=== PATIENT | female | born 1930 | race Caucasian/White ===

== ENCOUNTER 2017-01-17 12:43 | Inpatient (IN) | payer MEDICARE, OTHER, MEDICAID ==
[2017-01-17] MEDS ORDERED: Sodium Chloride 0.9% 10 ML Syringe FLUSH PRN (13:04)
--- NOTE | 2017-01-17 14:05 | CR ---
Chest: Portable view of the chest was obtained. Comparison: Previous chest x-ray of 08/24/16. Heart size and mediastinum are within normal limits for portable technique. Lungs are clear. Bony structures are grossly intact. Impression: 1. Nothing acute is seen on portable chest x-ray. Diagnostic code #2
--- NOTE | 2017-01-17 15:28 | EDM.PDOC ---
ED HPI GENERAL MEDICAL PROBLEM - General Chief Complaint: Respiratory Problem Stated Complaint: [facility] Time Seen by Provider: 01/17/17 13:01 Source of Information: Reports: Patient History Limitations: Reports: No Limitations - History of Present Illness INITIAL COMMENTS - FREE TEXT/NARRATIVE: The patient presents with a cough and generalized weakness. She got a flu shot on 01/11 and she says after that she developed a cough. She has a productive cough at times. She has some shortness of breath with it at times. She does not have a fever, chills, chest pain, abdominal pain, nausea or vomiting. She lives at [facility] and they say she has been fatigued more and needed more oxygen. She has oxygen at night. She has more edema in her legs. Onset: Gradual Duration: Day(s): Severity: Moderate Improves with: Reports: None Worsens with: Reports: None Associated Symptoms: Reports: Cough, cough w sputum, Shortness of Breath. Denies: Chest Pain, Fever/Chills, Nausea/Vomiting - Related Data Allergies Allergy/AdvReac Type Severity Reaction Status Date / Time No Known Allergies Allergy Verified 01/17/17 15:43 Home Meds: Home Meds Albuterol Sulfate [Proair Respiclick] 1 puff NEB Q4HR PRN 11/27/14 [History] Aspirin [Adult Low Dose Aspirin EC] 81 mg PO BID 11/27/14 [History] Budesonide [Pulmicort] 1 vial INH BID 11/27/14 [History] Furosemide 40 mg PO BID 11/27/14 [History] Levothyroxine Sodium [Synthroid] 75 mcg PO TUTHSA 11/27/14 [History] Levothyroxine Sodium [Synthroid] 100 mcg PO SUMOWEFR 11/27/14 [History] Lisinopril 5 mg PO DAILY 11/27/14 [History] Simvastatin [Zocor] 5 mg PO BEDTIME 01/17/17 [History] Past Medical History HEENT History: Reports: Cataract Cardiovascular History: Reports: Hypertension Respiratory History: Reports: COPD Other Genitourinary History: Kidney cancer. Kidney was removed Oncologic (Cancer) History: Reports: Other (See Below) Other Oncologic History: kidney - Past Surgical History HEENT Surgical History: Reports: Cataract Surgery Social & Family History - Family History Family Medical History: Noncontributory - Tobacco Use Smoking Status *Q: Never Smoker Second Hand Smoke Exposure: Yes - Caffeine Use Caffeine Use: Reports: Coffee - Recreational Drug Use Recreational Drug Use: No ED ROS GENERAL - Review of Systems Review Of Systems: See Below Constitutional: Reports: Weakness, Fatigue. Denies: Fever, Chills HEENT: Reports: No Symptoms Respiratory: Reports: Shortness of Breath, Cough Cardiovascular: Reports: Edema. Denies: Chest Pain Endocrine: Reports: No Symptoms GI/Abdominal: Reports: No Symptoms : Reports: No Symptoms Musculoskeletal: Reports: No Symptoms ED EXAM, GENERAL - Physical Exam Exam: See Below Exam Limited By: No Limitations General Appearance: Alert, No Apparent Distress Ears: Normal External Exam Nose: Normal Inspection Head: Atraumatic, Normocephalic Neck: Normal Inspection Respiratory/Chest: No Respiratory Distress, Lungs Clear, Rhonchi (Left mid lung) Cardiovascular: Regular Rate, Rhythm, No Edema, No Murmur GI/Abdominal: Soft, Non-Tender, No Organomegaly, No Mass Back Exam: Normal Inspection Extremities: Pedal Edema Neurological: Alert, Oriented, No Motor/Sensory Deficits EKG INTERPRETATION EKG Date: 01/17/17 Time: 13:13 Rhythm: NSR Rate (Beats/Min): 81 [place]: Normal P-Wave: Present QRS: Normal ST-T: Normal Course - Vital Signs Last Recorded V/S: Last Vital Signs Temp 97.9 F 01/17/17 13:02 Pulse 82 01/17/17 15:30 Resp 24 H 01/17/17 15:30 BP 146/62 H 01/17/17 15:30 Pulse Ox 95 01/17/17 15:30 - Orders/Labs/Meds Orders: Active Orders 24 hr Category Date Time Status Cardiac Monitoring [RC] . DIRECTED Care 01/17/17 13:04 Active EKG Documentation Completion [RC] STAT Care 01/17/17 13:05 Active Oxygen Therapy [RC] PRN Care 01/17/17 13:04 Active Peripheral IV Care [RC] . DIRECTED Care 01/17/17 13:04 Active RT Aerosol Therapy [RC] ASDIRECTED Care 01/17/17 15:52 Active CULTURE BLOOD [BC] Stat Lab 01/17/17 13:25 Received CULTURE BLOOD [BC] Stat Lab 01/17/17 13:40 Received INFLUENZA A+B AG SCREEN [RM] Stat Lab 01/17/17 16:13 Uncollected Levofloxacin/Dextrose 5%-Water [Levaquin in D5W 750 MG/ Med 01/17/17 15:48 Active 150 ML] 750 mg Premix Bag 1 bag IV ONETIME Sodium Chloride 0.9% [Saline Flush] Med 01/17/17 13:04 Active 10 ml FLUSH ASDIRECTED PRN Blood Culture x2 Reflex Set [OM.PC] Stat Oth 01/17/17 13:05 Ordered Peripheral IV Insertion Adult [OM.PC] Stat Oth 01/17/17 13:04 Ordered Medication Orders Levofloxacin/Dextrose 750 mg/ (Premix) 150 mls @ 100 mls/hr IV ONETIME ONE Stop: 01/17/17 17:17 Last Admin: 01/17/17 15:58 Dose: 100 mls/hr Sodium Chloride (Saline Flush) 10 ml FLUSH ASDIRECTED PRN PRN Reason: Keep Vein Open Last Admin: 01/17/17 14:55 Dose: 10 ml Labs: Laboratory Tests 01/17/17 01/17/17 01/17/17 Range/Units 13:25 13:25 13:31 WBC 7.65 (3.98-10.04) K/mm3 RBC 3.61 L (3.98-5.22) M/mm3 Hgb 11.7 (11.2-15.7) gm/L Hct 35.9 (34.1-44.9) % MCV 99.4 H (79.4-94.8) fl MCH 32.4 H (25.6-32.2) pg MCHC 32.6 (32.2-35.5) g/dl RDW Std Deviation 44.0 (36.4-46.3) fL Plt Count 222 (182-369) K/mm3 MPV 10.8 (9.4-12.3) fl Neut % (Auto) 61.7 (34.0-71.1) % Lymph % (Auto) 18.0 L (19.3-51.7) % Gila % (Auto) 16.2 H (4.7-12.5) % Eos % (Auto) 3.5 (0.7-5.8) Baso % (Auto) 0.5 (0.1-1.2) % Neut # (Auto) 4.71 (1.56-6.13) K/mm3 Lymph # (Auto) 1.38 (1.18-3.74) K/mm3 Gila # (Auto) 1.24 H (0.24-0.36) K/mm3 Eos # (Auto) 0.27 (0.04-0.36) K/mm3 Baso # (Auto) 0.04 (0.01-0.08) K/mm3 Manual Slide Review Abnormal smear Sodium 140 (136-145) mEq/L Potassium 4.4 (3.5-5.1) mEq/L Chloride 102 (98-107) mEq/L Carbon Dioxide 30 (21-32) mEq/L Anion Gap 12.4 (5-15) BUN 29 H (7-18) mg/dL Creatinine 1.5 H (0.55-1.02) mg/dL Est Cr Clr Drug Dosing 24.11 mL/min Estimated GFR (MDRD) 33 (>60) mL/min BUN/Creatinine Ratio 19.3 H (14-18) Glucose 86 (83-115) mg/dL Calcium 8.9 (8.5-10.1) mg/dL Total Bilirubin 0.6 (0.2-1.0) mg/dL AST 23 (15-37) U/L ALT 19 (14-59) U/L Alkaline Phosphatase 86 (46-116) U/L Troponin I < 0.017 (0.00-0.056) ng/mL NT-Pro-B Natriuret Pep 430 (0-450) pg/mL Total Protein 7.3 (6.4-8.2) g/dl Albumin 2.8 L (3.4-5.0) g/dl Globulin 4.5 gm/dL Albumin/Globulin Ratio 0.6 L (1-2) Urine Color (Yellow) Urine Appearance (Clear) Urine pH (5.0-8.0) Ur Specific Dameron (1.005-1.030) Urine Protein (Negative) Urine Glucose (UA) (Negative) Urine Ketones (Negative) Urine Occult Blood (Negative) Urine Nitrite (Negative) Urine Bilirubin (Negative) Urine Urobilinogen (0.2-1.0) Ur Leukocyte Esterase (Negative) Urine RBC (0-5) /hpf Urine WBC (0-5) /hpf Ur Epithelial Cells (0-5) /hpf Urine Bacteria (FEW) /hpf Urine Mucus (FEW) /hpf 01/17/17 Range/Units 14:00 WBC (3.98-10.04) K/mm3 RBC (3.98-5.22) M/mm3 Hgb (11.2-15.7) gm/L Hct (34.1-44.9) % MCV (79.4-94.8) fl MCH (25.6-32.2) pg MCHC (32.2-35.5) g/dl RDW Std Deviation (36.4-46.3) fL Plt Count (182-369) K/mm3 MPV (9.4-12.3) fl Neut % (Auto) (34.0-71.1) % Lymph % (Auto) (19.3-51.7) % Gila % (Auto) (4.7-12.5) % Eos % (Auto) (0.7-5.8) Baso % (Auto) (0.1-1.2) % Neut # (Auto) (1.56-6.13) K/mm3 Lymph # (Auto) (1.18-3.74) K/mm3 Gila # (Auto) (0.24-0.36) K/mm3 Eos # (Auto) (0.04-0.36) K/mm3 Baso # (Auto) (0.01-0.08) K/mm3 Manual Slide Review Sodium (136-145) mEq/L Potassium (3.5-5.1) mEq/L Chloride (98-107) mEq/L Carbon Dioxide (21-32) mEq/L Anion Gap (5-15) BUN (7-18) mg/dL Creatinine (0.55-1.02) mg/dL Est Cr Clr Drug Dosing mL/min Estimated GFR (MDRD) (>60) mL/min BUN/Creatinine Ratio (14-18) Glucose (83-115) mg/dL Calcium (8.5-10.1) mg/dL Total Bilirubin (0.2-1.0) mg/dL AST (15-37) U/L ALT (14-59) U/L Alkaline Phosphatase (46-116) U/L Troponin I (0.00-0.056) ng/mL NT-Pro-B Natriuret Pep (0-450) pg/mL Total Protein (6.4-8.2) g/dl Albumin (3.4-5.0) g/dl Globulin gm/dL Albumin/Globulin Ratio (1-2) Urine Color Light yellow (Yellow) Urine Appearance Clear (Clear) Urine pH 7.0 (5.0-8.0) Ur Specific Dameron 1.015 (1.005-1.030) Urine Protein Negative (Negative) Urine Glucose (UA) Negative (Negative) Urine Ketones Negative (Negative) Urine Occult Blood Negative (Negative) Urine Nitrite Negative (Negative) Urine Bilirubin Negative (Negative) Urine Urobilinogen 0.2 (0.2-1.0) Ur Leukocyte Esterase Negative (Negative) Urine RBC Not seen (0-5) /hpf Urine WBC 0-5 (0-5) /hpf Ur Epithelial Cells 0-5 (0-5) /hpf Urine Bacteria Not seen (FEW) /hpf Urine Mucus Not seen (FEW) /hpf Meds: Medications Generic Name Dose Route Start Last Admin Trade Name Aurelio PRN Reason Stop Dose Admin Levofloxacin/Dextrose 750 mg/ 150 mls @ 100 mls/hr 01/17/17 15:48 01/17/17 15 :58 Premix IV 01/17/17 17:17 100 mls/hr ONETIME ONE Administration Sodium Chloride 10 ml 01/17/17 13:04 01/17/17 14:55 Saline Flush FLUSH 10 ml ASDIRECTED PRN Administration Keep Vein Open Discontinued Medications Generic Name Dose Route Start Last Admin Trade Name Aurelio PRN Reason Stop Dose Admin Albuterol/Ipratropium 3 ml 01/17/17 15:52 01/17/17 16:11 Duoneb 3.0-0.5 Mg/3 Ml NEB 01/17/17 15:53 3 ml ONETIME ONE Administration Methylprednisolone Sodium Succinate 125 mg 01/17/17 15:52 01/17/17 15:57 Solu-Medrol IVPUSH 01/17/17 15:53 125 mg ONETIME ONE Administration - Re-Assessments/Exams Free Text/Narrative Re-Assessment/Exam: 01/17/17 15:33 I ordered an IV saline lock, EKG, CXR, labs, UA and blood cultures. Her EKG shows a NSR with no acute changes. Her CXR shows nothing acute. Her CBC looks good with a normal WBC. Her CMP shows a slightly elevated creatinine of 1.5. Her UA shows no UTI. Her troponin is negative. Her BNP was negative. 01/17/17 16:14 I ordered a duoneb and levaquin 750mg IV. My nurse took her oxygen off and she went to 88%. She is requiring oxygen during the day now. She would only need the oxygen at night. I feel she needs to be admitted. I called Dr Pedraza and she agreed to the admission. Departure - Departure Time of Disposition: 16:20 Disposition: Admitted As Inpatient 68 Clinical Impression: Hypoxia, COPD exacerbation, Cough, Bronchitis - Discharge Information Referrals: Gabby Cornell PA [Primary Care Provider] - Forms: ED Department Discharge - My Orders Last 24 Hours: My Active Orders 01/17/17 13:04 Cardiac Monitoring [RC] . DIRECTED Oxygen Therapy [RC] PRN Peripheral IV Care [RC] . DIRECTED Sodium Chloride 0.9% [Saline Flush] 10 ml FLUSH ASDIRECTED PRN Peripheral IV Insertion Adult [OM.PC] Stat 01/17/17 13:05 EKG Documentation Completion [RC] STAT Blood Culture x2 Reflex Set [OM.PC] Stat 01/17/17 13:25 CULTURE BLOOD [BC] Stat 01/17/17 13:40 CULTURE BLOOD [BC] Stat 01/17/17 15:48 Levofloxacin/Dextrose 5%-Water [Levaquin in D5W 750 MG/150 ML] 750 mg Premix Bag 1 bag IV ONETIME 01/17/17 15:52 RT Aerosol Therapy [RC] ASDIRECTED 01/17/17 16:13 INFLUENZA A+B AG SCREEN [RM] Stat - Assessment/Plan Last 24 Hours: My Active Orders 01/17/17 13:04 Cardiac Monitoring [RC] . DIRECTED Oxygen Therapy [RC] PRN Peripheral IV Care [RC] . DIRECTED Sodium Chloride 0.9% [Saline Flush] 10 ml FLUSH ASDIRECTED PRN Peripheral IV Insertion Adult [OM.PC] Stat 01/17/17 13:05 EKG Documentation Completion [RC] STAT Blood Culture x2 Reflex Set [OM.PC] Stat 01/17/17 13:25 CULTURE BLOOD [BC] Stat 01/17/17 13:40 CULTURE BLOOD [BC] Stat 01/17/17 15:48 Levofloxacin/Dextrose 5%-Water [Levaquin in D5W 750 MG/150 ML] 750 mg Premix Bag 1 bag IV ONETIME 01/17/17 15:52 RT Aerosol Therapy [RC] ASDIRECTED 01/17/17 16:13 INFLUENZA A+B AG SCREEN [RM] Stat
[2017-01-17] MEDS ORDERED: Levofloxacin/Dextrose 5%-Water 750 MG in Premix Bag 1 BAG IV ONE (15:48)
[2017-01-17] MEDS ORDERED: Albuterol/Ipratropium 3.0-0.5 MG/3 ML Neb Soln NEB ONE (15:52)
[2017-01-17] MEDS ORDERED: methylPREDNISolone Sodium Succinate 125 MG/2 ML SDV IVPUSH ONE (15:52)
[2017-01-17] MEDS ORDERED: Albuterol/Ipratropium 3.0-0.5 MG/3 ML Neb Soln NEB PRN (19:54)
--- NOTE | 2017-01-17 20:15 | PCM.HP ---
H&P History of Present Illness - General Date of Service: 01/17/17 Admit Problem/Dx: Admission Diagnosis/Problem Admission Diagnosis/Problem Hypoxia Source of Information: Patient, Provider History Limitations: Reports: No Limitations - History of Present Illness Initial Comments - Free Text/Narative: 86 year old female with a productive cough, unknown component of SOB, presents from [place]. There has been no recent evaluation by a healthcare provider. The patient is a poor historian, based on the information that the ED provider obtained, she had been SOB. It is unclear whether it was with activity or at rest. She has been afebrile. There is one plus edema LE bilaterally, suspect that it is chronic. Functional capacity is unknown, however the patient appears to be profoundly sedentary. A respiratory panel has been ordered. She has received Levoquin 750 mg once, this will be ordered every 48 hours based on renal function. Onset of Symptoms: Reports: Gradual Duration of Symptoms: Reports: Day(s):, Getting Worse Location: Reports: Chest Severity: Moderate Improves with: Reports: Medication Worsens with: Reports: None Associated Symptoms: Reports: cough w sputum, Shortness of Breath, Weakness - Related Data Allergies/Adverse Reactions: Allergies Allergy/AdvReac Type Severity Reaction Status Date / Time No Known Allergies Allergy Verified 01/17/17 15:43 Home Medications: Home Meds Albuterol Sulfate [Proair Respiclick] 1 puff NEB Q4HR PRN 11/27/14 [History] Aspirin [Adult Low Dose Aspirin EC] 81 mg PO BID 11/27/14 [History] Budesonide [Pulmicort] 1 vial INH BID 11/27/14 [History] Furosemide 40 mg PO BID 11/27/14 [History] Levothyroxine Sodium [Synthroid] 75 mcg PO TUTHSA 11/27/14 [History] Levothyroxine Sodium [Synthroid] 100 mcg PO SUMOWEFR 11/27/14 [History] Lisinopril 5 mg PO DAILY 11/27/14 [History] Simvastatin [Zocor] 5 mg PO BEDTIME 01/17/17 [History] Nystatin [Nystop] 15 gm TOP BID PRN 01/18/17 [History] Past Medical History HEENT History: Reports: Cataract Cardiovascular History: Reports: High Cholesterol, Hypertension Respiratory History: Reports: COPD Other Genitourinary History: Kidney cancer. Kidney was removed Oncologic (Cancer) History: Reports: Other (See Below) Other Oncologic History: kidney - Past Surgical History HEENT Surgical History: Reports: Cataract Surgery Social & Family History - Family History Family Medical History: Noncontributory - Tobacco Use Smoking Status *Q: Never Smoker Second Hand Smoke Exposure: Yes - Caffeine Use Caffeine Use: Reports: Coffee Caffeine Use Comment: Patient states she drinks 3 cups decaf coffee per day - Recreational Drug Use Recreational Drug Use: No H&P Review of Systems - Review of Systems: Review Of Systems: See Below General: Reports: Weakness, Fatigue HEENT: Reports: No Symptoms Pulmonary: Reports: Shortness of Breath, Cough Cardiovascular: Reports: No Symptoms Gastrointestinal: Reports: No Symptoms Genitourinary: Reports: No Symptoms Musculoskeletal: Reports: No Symptoms Skin: Reports: No Symptoms Psychiatric: Reports: No Symptoms Neurological: Reports: No Symptoms Hematologic/Lymphatic: Reports: No Symptoms Immunologic: Reports: No Symptoms Exam - Exam Exam: See Below - Vital Signs Vital Signs: Last Vital Signs Temp 36.6 C 01/17/17 13:02 Pulse 82 01/17/17 15:30 Resp 24 H 01/17/17 15:30 BP 146/62 H 01/17/17 15:30 Pulse Ox 95 01/17/17 16:11 Weight: 113.217 kg - Exam Quality Assessment: Supplemental Oxygen General: Alert, Oriented, Cooperative HEENT: EOMI, Nares Patent, Normal Nasal Septum, Pupils Equal, Pupils Reactive, PERRLA Neck: Supple, Trachea Midline Lungs: Normal Respiratory Effort, Decreased Breath Sounds Cardiovascular: Regular Rate GI/Abdominal Exam: Normal Bowel Sounds, Soft, Non-Tender, No Organomegaly, No Distention (Female) Exam: Deferred Rectal (Female) Exam: Decreased Rectal Tone Extremities: Normal Inspection, Pedal Edema Skin: Warm Neurological: Cranial Nerves Intact Neuro Extensive - Mental Status: Alert, Oriented x3 Neuro Extensive - Motor, Sensory, Reflexes: CN II-XII Intact - Patient Data Result Diagrams: 01/18/17 06:27 01/18/17 06:27 Luc Results Last 24 hrs: Microbiology 01/17/17 17:25 Influenza Type A Antigen Screen - Final Nasopharyngeal Swab - Nare, Unspecified NEGATIVE INFLUENZA A VIRUS AG Influenza Type B Antigen Screen - Final NEGATIVE INFLUENZA B VIRUS AG *Q Meaningful Use (ADM) - VTE *Q VTE Criteria *Q: - Stroke *Q Stroke Criteria *Q: - AMI *Q AMI Criteria *Q: - Problem List (1) CHF (congestive heart failure) SNOMED Code(s): 44208578 ICD Code: I50.9 - HEART FAILURE, UNSPECIFIED Status: Acute Current Visit : Yes Problem List Initiated/Reviewed/Updated: Yes Orders Last 24hrs: Active Orders 24 hr Category Date Time Status Patient Status [ADT] Routine ADT 01/17/17 17:31 Active RT Aerosol Therapy [RC] ASDIRECTED Care 01/17/17 19:56 Ordered CXR [Chest 2V] [CR] Routine Exams 01/19/17 08:00 Ordered BMP [BASIC METABOLIC PANEL,BMP] [CHEM] DAILY Lab 01/18/17 05:00 Ordered BMP [BASIC METABOLIC PANEL,BMP] [CHEM] DAILY Lab 01/19/17 05:00 Ordered BMP [BASIC METABOLIC PANEL,BMP] [CHEM] DAILY Lab 01/20/17 05:00 Ordered BMP [BASIC METABOLIC PANEL,BMP] [CHEM] DAILY Lab 01/21/17 05:00 Ordered CBC WITH AUTO DIFF [HEME] DAILY Lab 01/18/17 05:00 Ordered CBC WITH AUTO DIFF [HEME] DAILY Lab 01/19/17 05:00 Ordered CBC WITH AUTO DIFF [HEME] DAILY Lab 01/20/17 05:00 Ordered CBC WITH AUTO DIFF [HEME] DAILY Lab 01/21/17 05:00 Ordered CRP [C-REACTIVE PROTEIN] [CHEM] DAILY Lab 01/18/17 05:00 Ordered CRP [C-REACTIVE PROTEIN] [CHEM] DAILY Lab 01/19/17 05:00 Ordered CRP [C-REACTIVE PROTEIN] [CHEM] DAILY Lab 01/20/17 05:00 Ordered CRP [C-REACTIVE PROTEIN] [CHEM] DAILY Lab 01/21/17 05:00 Ordered MAGNESIUM [CHEM] DAILY Lab 01/18/17 05:11 Ordered MAGNESIUM [CHEM] DAILY Lab 01/19/17 05:11 Ordered MAGNESIUM [CHEM] DAILY Lab 01/20/17 05:11 Ordered MAGNESIUM [CHEM] DAILY Lab 01/21/17 05:11 Ordered MYCOPLASMA PNEUMONIAE IGM AB [CHEM] Routine Lab 01/18/17 05:00 Ordered PRO B-TYPE NATRIUR PEPT,BNPPRO [CHEM] Routine Lab 01/18/17 05:00 Ordered RESPIRATORY PANEL BY PCR [MREF] Routine Lab 01/17/17 19:58 Uncollected STREP PNEUMONIAE ANTIGEN [MREF] Routine Lab 01/17/17 19:46 Uncollected TROPONIN I [CHEM] Routine Lab 01/18/17 05:00 Ordered TSH [CHEM] Routine Lab 01/18/17 05:00 Ordered Albuterol [Proventil Neb Soln] Med 01/17/17 19:56 Ordered 2.5 mg NEB Q4HRRT PRN Albuterol/Ipratropium [DuoNeb 3.0-0.5 MG/3 ML] Med 01/17/17 19:54 Ordered 3 ml NEB QID PRN Aspirin [Halfprin] Med 01/17/17 21:00 Ordered 81 mg PO BID Budesonide [Pulmicort] Med 01/17/17 21:00 Ordered 1 vial INH BID Levothyroxine Med 01/18/17 19:40 Ordered 75 mcg PO TUTHSA Levothyroxine [Synthroid] Med 01/17/17 19:45 Ordered 100 mcg PO SUMOWEFR Simvastatin [Zocor] Med 01/17/17 21:00 Ordered 5 mg PO BEDTIME methylPREDNISolone Sod Succ [Solu-MEDROL] Med 01/17/17 20:00 Ordered 80 mg IVPUSH Q8H Resuscitation Status Routine Resus Stat 01/17/17 18:08 Ordered Medication Orders Albuterol (Proventil Neb Soln) 2.5 mg NEB Q4HRRT PRN PRN Reason: Shortness of Breath Albuterol/Ipratropium (Duoneb 3.0-0.5 Mg/3 Ml) 3 ml NEB QID PRN PRN Reason: Shortness of Breath Aspirin (Halfprin) 81 mg PO BID RIAZ Budesonide (Pulmicort) 0.5 mg INH BIDRT RIAZ Levothyroxine Sodium (Synthroid) 100 mcg PO SuMoWeFr@0600 RIAZ Levothyroxine Sodium (Levothyroxine) 75 mcg PO TuThSa@0600 RIAZ Methylprednisolone Sodium Succinate (Solu-Medrol) 80 mg IVPUSH Q8H RIAZ Simvastatin (Zocor) 5 mg PO BEDTIME RIAZ Sodium Chloride (Saline Flush) 10 ml FLUSH ASDIRECTED PRN PRN Reason: Keep Vein Open Last Admin: 01/17/17 14:55 Dose: 10 ml Assessment/Plan Comment:: Impression: Query respiratory infection, COPD history-->needs clarification Empiric treatment started with Levoquin 750 mg Q 48 hours, renal dose. Doubt heart failure Needs polysomnography evaluation as an outpatient HTN HLD Morbid obesity Plan: Resp panel/mycoplasma/Strep pneumo Empiric Rx with Levoquin 750 mg Q 48 hours Home meds/daily labs SW/PT/OT consults DVT/GI propjylaxis
[2017-01-17] MEDS: Simvastatin 10 MG Tab PO SCH (21:07)
[2017-01-17] MEDS: Aspirin 81 MG Tab.EC PO SCH (21:07)
[2017-01-17] MEDS: Budesonide 0.5 MG/2 ML Neb Susp INH SCH (21:35)
[2017-01-17] MEDS: Albuterol 0.083% 2.5 MG/3 ML Neb Soln NEB PRN (22:15)
[2017-01-17] MEDS ORDERED: Pneumococcal Polyvalent-23 Vaccine 0.5 ML SDV IM ONE (23:44)
[2017-01-18] MEDS: methylPREDNISolone Sodium Succinate 40 MG/1 ML SDV IVPUSH SCH ×3 (00:27→15:25)
[2017-01-18] MEDS ORDERED: Nystatin Topical Powder 15 GM Bottle TOP PRN (02:35)
[2017-01-18] MEDS: Budesonide 0.5 MG/2 ML Neb Susp INH SCH ×2 (05:40→21:08)
[2017-01-18] MEDS: Levothyroxine 75 MCG Tab PO SCH (06:10)
[2017-01-18] MEDS: Aspirin 81 MG Tab.EC PO SCH ×2 (10:33→20:53)
[2017-01-18] MEDS ORDERED: hydrALAZINE 20 MG/ML SDV IVPUSH PRN (12:20)
[2017-01-18] MEDS ORDERED: Sodium Chloride 0.45% 1,000 ML IV SCH (12:30)
--- NOTE | 2017-01-18 16:43 | PCM.PN ---
- General Info Date of Service: 01/18/17 Functional Status: Reports: Tolerating Diet - Review of Systems General: Reports: Weakness HEENT: Reports: No Symptoms Pulmonary: Reports: Shortness of Breath Cardiovascular: Reports: No Symptoms Gastrointestinal: Reports: No Symptoms Genitourinary: Reports: No Symptoms Musculoskeletal: Reports: No Symptoms Skin: Reports: No Symptoms Neurological: Reports: No Symptoms Psychiatric: Reports: No Symptoms - Patient Data Vitals - Most Recent: Last Vital Signs Temp 36.6 C 01/18/17 12:22 Pulse 96 01/18/17 12:22 Resp 19 01/18/17 12:22 BP 131/45 L 01/18/17 12:22 Pulse Ox 91 L 01/18/17 12:22 Weight - Most Recent: 113.217 kg I&O - Last 24 Hours: Intake & Output 01/18/17 01/18/17 01/18/17 06:59 14:59 22:59 Intake Total 200 Output Total 100 Balance 100 Lab Results Last 24 Hours: Laboratory Results - last 24 hr 01/18/17 01/18/17 01/18/17 Range/Units 00:20 06:27 06:27 WBC 7.94 (3.98-10.04) K/mm3 RBC 3.82 L (3.98-5.22) M/mm3 Hgb 12.2 (11.2-15.7) gm/L Hct 37.5 (34.1-44.9) % MCV 98.2 H (79.4-94.8) fl MCH 31.9 (25.6-32.2) pg MCHC 32.5 (32.2-35.5) g/dl RDW Std Deviation 43.5 (36.4-46.3) fL Plt Count 271 (182-369) K/mm3 MPV 11.5 (9.4-12.3) fl Neut % (Auto) 90.0 H (34.0-71.1) % Lymph % (Auto) 7.8 L (19.3-51.7) % [place] % (Auto) 1.9 L (4.7-12.5) % Eos % (Auto) 0 L (0.7-5.8) Baso % (Auto) 0.0 L (0.1-1.2) % Neut # (Auto) 7.15 H (1.56-6.13) K/mm3 Lymph # (Auto) 0.62 L (1.18-3.74) K/mm3 [place] # (Auto) 0.15 L (0.24-0.36) K/mm3 Eos # (Auto) 0.00 L (0.04-0.36) K/mm3 Baso # (Auto) 0.00 L (0.01-0.08) K/mm3 Manual Slide Review Abnormal smear Sodium 139 (136-145) mEq/L Potassium 4.3 (3.5-5.1) mEq/L Chloride 101 (98-107) mEq/L Carbon Dioxide 26 (21-32) mEq/L Anion Gap 16.3 H (5-15) BUN 32 H (7-18) mg/dL Creatinine 1.6 H (0.55-1.02) mg/dL Est Cr Clr Drug Dosing 22.60 mL/min Estimated GFR (MDRD) 31 (>60) mL/min BUN/Creatinine Ratio 20.0 H (14-18) Glucose 177 H (83-115) mg/dL Calcium 9.3 (8.5-10.1) mg/dL Magnesium (1.8-2.4) mg/dl Troponin I < 0.017 (0.00-0.056) ng/mL C-Reactive Protein 5.2 H* (<1.0) mg/dL NT-Pro-B Natriuret Pep 541 H (0-450) pg/mL TSH 3rd Generation 1.600 (0.358-3.74) uIU/mL Mycoplasma pneumon IgM Negative (NEGATIVE) MRSA (PCR) Negative 01/18/17 Range/Units 06:27 WBC (3.98-10.04) K/mm3 RBC (3.98-5.22) M/mm3 Hgb (11.2-15.7) gm/L Hct (34.1-44.9) % MCV (79.4-94.8) fl MCH (25.6-32.2) pg MCHC (32.2-35.5) g/dl RDW Std Deviation (36.4-46.3) fL Plt Count (182-369) K/mm3 MPV (9.4-12.3) fl Neut % (Auto) (34.0-71.1) % Lymph % (Auto) (19.3-51.7) % [place] % (Auto) (4.7-12.5) % Eos % (Auto) (0.7-5.8) Baso % (Auto) (0.1-1.2) % Neut # (Auto) (1.56-6.13) K/mm3 Lymph # (Auto) (1.18-3.74) K/mm3 [place] # (Auto) (0.24-0.36) K/mm3 Eos # (Auto) (0.04-0.36) K/mm3 Baso # (Auto) (0.01-0.08) K/mm3 Manual Slide Review Sodium (136-145) mEq/L Potassium (3.5-5.1) mEq/L Chloride (98-107) mEq/L Carbon Dioxide (21-32) mEq/L Anion Gap (5-15) BUN (7-18) mg/dL Creatinine (0.55-1.02) mg/dL Est Cr Clr Drug Dosing mL/min Estimated GFR (MDRD) (>60) mL/min BUN/Creatinine Ratio (14-18) Glucose (83-115) mg/dL Calcium (8.5-10.1) mg/dL Magnesium 2.3 (1.8-2.4) mg/dl Troponin I (0.00-0.056) ng/mL C-Reactive Protein (<1.0) mg/dL NT-Pro-B Natriuret Pep (0-450) pg/mL TSH 3rd Generation (0.358-3.74) uIU/mL Mycoplasma pneumon IgM (NEGATIVE) MRSA (PCR) Luc Results Last 24 Hours: Microbiology 01/17/17 17:25 Influenza Type A Antigen Screen - Final Nasopharyngeal Swab - Nare, Unspecified NEGATIVE INFLUENZA A VIRUS AG Influenza Type B Antigen Screen - Final NEGATIVE INFLUENZA B VIRUS AG Med Orders - Current: Current Medications Albuterol (Proventil Neb Soln) 2.5 mg NEB Q4HRRT PRN PRN Reason: Shortness of Breath Last Admin: 01/17/17 22:15 Dose: 2.5 mg Albuterol/Ipratropium (Duoneb 3.0-0.5 Mg/3 Ml) 3 ml NEB QID PRN PRN Reason: Shortness of Breath Aspirin (Halfprin) 81 mg PO BID [facility] Last Admin: 01/18/17 10:33 Dose: 81 mg Budesonide (Pulmicort) 0.5 mg INH BIDRT [facility] Last Admin: 01/18/17 05:40 Dose: 0.5 mg Hydralazine HCl (Apresoline) 10 mg IVPUSH Q6H PRN PRN Reason: Hypertension Sodium Chloride (Sodium Chloride 0.45%) 1,000 mls @ 75 mls/hr IV ASDIRECTED [facility] Last Admin: 01/18/17 15:28 Dose: 75 mls/hr Levothyroxine Sodium (Synthroid) 100 mcg PO SuMoWeFr@0600 [facility] Levothyroxine Sodium (Levothyroxine) 75 mcg PO TuThSa@0600 [facility] Last Admin: 01/18/17 06:10 Dose: 75 mcg Methylprednisolone Sodium Succinate (Solu-Medrol) 80 mg IVPUSH Q8H [facility] Last Admin: 01/18/17 15:25 Dose: 80 mg Nystatin (Nystop) 1 gm TOP BID PRN PRN Reason: Other Simvastatin (Zocor) 5 mg PO BEDTIME [facility] Last Admin: 01/17/17 21:07 Dose: 5 mg Sodium Chloride (Saline Flush) 10 ml FLUSH ASDIRECTED PRN PRN Reason: Keep Vein Open Last Admin: 01/17/17 14:55 Dose: 10 ml Discontinued Medications Albuterol/Ipratropium (Duoneb 3.0-0.5 Mg/3 Ml) 3 ml NEB ONETIME ONE Stop: 01/17/17 15:53 Last Admin: 01/17/17 16:11 Dose: 3 ml Levofloxacin/Dextrose 750 mg/ (Premix) 150 mls @ 100 mls/hr IV ONETIME ONE Stop: 01/17/17 17:17 Last Admin: 01/17/17 15:58 Dose: 100 mls/hr Methylprednisolone Sodium Succinate (Solu-Medrol) 125 mg IVPUSH ONETIME ONE Stop: 01/17/17 15:53 Last Admin: 01/17/17 15:57 Dose: 125 mg - Exam Quality Assessment: Supplemental Oxygen, DVT Prophylaxis General: Alert, Oriented, Cooperative, No Acute Distress HEENT: Pupils Equal, Pupils Reactive, EOMI Neck: Supple, Trachea Midline Lungs: Normal Respiratory Effort Cardiovascular: Regular Rate GI/Abdominal Exam: Normal Bowel Sounds, Soft, Non-Tender, No Organomegaly, No Distention (Female) Exam: Deferred Back Exam: Normal Inspection Extremities: Normal Inspection Skin: Warm Neurological: No New Focal Deficit Psy/Mental Status: Alert, Normal Affect, Normal Mood - Problem List & Annotations (1) CHF (congestive heart failure) SNOMED Code(s): 66214953 Code(s): I50.9 - HEART FAILURE, UNSPECIFIED Status: Acute Current Visit: Yes - Problem List Review Problem List Initiated/Reviewed/Updated: Yes - My Orders Last 24 Hours: My Active Orders 01/17/17 18:08 Resuscitation Status Routine 01/17/17 19:46 STREP PNEUMONIAE ANTIGEN [MREF] Routine 01/17/17 19:54 Albuterol/Ipratropium [DuoNeb 3.0-0.5 MG/3 ML] 3 ml NEB QID PRN 01/17/17 19:56 RT Aerosol Therapy [RC] ASDIRECTED Albuterol [Proventil Neb Soln] 2.5 mg NEB Q4HRRT PRN 01/17/17 21:00 Aspirin [Halfprin] 81 mg PO BID Budesonide [Pulmicort] 0.5 mg INH BIDRT Simvastatin [Zocor] 5 mg PO BEDTIME 01/17/17 23:10 RESPIRATORY PANEL BY PCR [MREF] Routine 01/18/17 00:00 methylPREDNISolone Sod Succ [Solu-MEDROL] 80 mg IVPUSH Q8H 01/18/17 02:35 Nystatin [Nystop] 1 gm TOP BID PRN 01/18/17 06:00 Levothyroxine 75 mcg PO TuThSa@0600 01/18/17 10:47 RT PFT Bedside Parameters [RC] Click to Edit 01/18/17 10:49 Consult to Occupational Therapy [OT Evaluation and Treatment] [CONS] Routine Consult to Physical Therapy [PT Evaluation and Treatment] [CONS] Routine 01/18/17 12:20 hydrALAZINE [Apresoline] 10 mg IVPUSH Q6H PRN 01/18/17 12:30 Sodium Chloride 0.45% 1,000 ml IV ASDIRECTED 01/18/17 13:24 Consult to Habitat Management Coordinator [CONS] Routine 01/18/17 13:25 Bedside Screening Spirometry [RT Spirometry Screening] [RESPCARE] Routine 01/19/17 05:00 BMP [BASIC METABOLIC PANEL,BMP] [CHEM] DAILY CBC WITH AUTO DIFF [HEME] DAILY CRP [C-REACTIVE PROTEIN] [CHEM] DAILY 01/19/17 05:11 MAGNESIUM [CHEM] DAILY 01/19/17 06:00 Levothyroxine [Synthroid] 100 mcg PO SuMoWeFr@0600 01/19/17 08:00 CXR [Chest 2V] [CR] Routine 01/20/17 05:00 BMP [BASIC METABOLIC PANEL,BMP] [CHEM] DAILY CBC WITH AUTO DIFF [HEME] DAILY CRP [C-REACTIVE PROTEIN] [CHEM] DAILY 01/20/17 05:11 MAGNESIUM [CHEM] DAILY 01/21/17 05:00 BMP [BASIC METABOLIC PANEL,BMP] [CHEM] DAILY CBC WITH AUTO DIFF [HEME] DAILY CRP [C-REACTIVE PROTEIN] [CHEM] DAILY 01/21/17 05:11 MAGNESIUM [CHEM] DAILY - Plan Plan:: Impression: Query respiratory infection, COPD history-->Spirometry=moderate severe obstructive airway disease Empiric treatment started with Levoquin 750 mg Q 48 hours, renal dose. Doubt heart failure Needs polysomnography evaluation as an outpatient HTN HLD Morbid obesity Plan: DC to SNF 24-48 hours. Resp panel/mycoplasma/Strep pneumo Empiric Rx with Levoquin 750 mg Q 48 hours Home meds/daily labs SW/PT/OT consults DVT/GI prophylaxis
[2017-01-18] MEDS: Simvastatin 10 MG Tab PO SCH (20:54)
[2017-01-18] MEDS: Albuterol 0.083% 2.5 MG/3 ML Neb Soln NEB PRN (21:09)
[2017-01-19] MEDS: methylPREDNISolone Sodium Succinate 40 MG/1 ML SDV IVPUSH SCH ×2 (00:50→09:55)
[2017-01-19] MEDS: Budesonide 0.5 MG/2 ML Neb Susp INH SCH ×2 (05:42→20:17)
[2017-01-19] MEDS ORDERED: Levothyroxine 100 MCG Tab PO SCH (06:00)
[2017-01-19] MEDS: Aspirin 81 MG Tab.EC PO SCH ×2 (09:28→21:14)
[2017-01-19] MEDS ORDERED: methylPREDNISolone Sodium Succinate 40 MG/1 ML SDV IVPUSH SCH (09:30)
--- NOTE | 2017-01-19 09:31 | CR ---
Chest: Two views of the chest were obtained. Comparison: Previous chest x-ray of 01/17/17. Heart size appears within normal limits. Mediastinum also within normal limits but aorta is slightly tortuous. Lungs are clear with no acute infiltrates. Mild degenerative spurring is seen throughout the spine. Impression: 1. Incidental findings. Nothing acute is seen on two-view chest x-ray. Diagnostic code #2
--- NOTE | 2017-01-19 10:10 | PCM.PN ---
<Skip Boyle - Last Filed: 01/19/17 14:07> - General Info Date of Service: 01/19/17 Admission Dx/Problem (Free Text): Admission Diagnosis/Problem Admission Diagnosis/Problem Hypoxia Functional Status: Reports: Pain Controlled, Tolerating Diet, Ambulating, Urinating. Denies: New Symptoms - Review of Systems General: Reports: Weakness HEENT: Reports: No Symptoms Pulmonary: Reports: No Symptoms Cardiovascular: Reports: No Symptoms Gastrointestinal: Reports: No Symptoms Genitourinary: Reports: No Symptoms Musculoskeletal: Reports: No Symptoms Skin: Reports: No Symptoms Neurological: Reports: No Symptoms Psychiatric: Reports: No Symptoms Systems Review Comment:: Patient is somewhat confused however she responds appropriately to questions when asked. She was made aware she is going [facility] [place] when released from here. She is very excited about this. - Patient Data Vitals - Most Recent: Last Vital Signs Temp 97.3 F 01/19/17 07:50 Pulse 87 01/19/17 07:52 Resp 28 H 01/19/17 07:50 BP 136/59 L 01/19/17 07:50 Pulse Ox 90 L 01/19/17 07:52 Weight - Most Recent: 112.718 kg I&O - Last 24 Hours: Intake & Output 01/18/17 01/19/17 01/19/17 22:59 06:59 14:59 Intake Total 960 1000 Output Total 100 50 Balance 860 950 Lab Results Last 24 Hours: Laboratory Results - last 24 hr 01/19/17 01/19/17 01/19/17 Range/Units 05:50 05:58 05:58 WBC 15.63 H (3.98-10.04) K/mm3 RBC 3.92 L (3.98-5.22) M/mm3 Hgb 12.5 (11.2-15.7) gm/L Hct 38.7 (34.1-44.9) % MCV 98.7 H (79.4-94.8) fl MCH 31.9 (25.6-32.2) pg MCHC 32.3 (32.2-35.5) g/dl RDW Std Deviation 44.0 (36.4-46.3) fL Plt Count 288 (182-369) K/mm3 MPV 11.0 (9.4-12.3) fl Neut % (Auto) 91.0 H (34.0-71.1) % Lymph % (Auto) 5.7 L (19.3-51.7) % [place]ake % (Auto) 2.9 L (4.7-12.5) % Eos % (Auto) 0 L (0.7-5.8) Baso % (Auto) 0.1 (0.1-1.2) % Neut # (Auto) 14.23 H (1.56-6.13) K/mm3 Lymph # (Auto) 0.89 L (1.18-3.74) K/mm3 [place]ake # (Auto) 0.46 H (0.24-0.36) K/mm3 Eos # (Auto) 0.00 L (0.04-0.36) K/mm3 Baso # (Auto) 0.01 (0.01-0.08) K/mm3 Manual Slide Review Abnormal smear Sodium 141 (136-145) mEq/L Potassium 4.9 (3.5-5.1) mEq/L Chloride 104 (98-107) mEq/L Carbon Dioxide 29 (21-32) mEq/L Anion Gap 12.9 (5-15) BUN 31 H (7-18) mg/dL Creatinine 1.4 H (0.55-1.02) mg/dL Est Cr Clr Drug Dosing 25.83 mL/min Estimated GFR (MDRD) 36 (>60) mL/min BUN/Creatinine Ratio 22.1 H (14-18) Glucose 173 H (83-115) mg/dL Calcium 9.0 (8.5-10.1) mg/dL Magnesium 2.5 H (1.8-2.4) mg/dl C-Reactive Protein 2.8 H* (<1.0) mg/dL Luc Results Last 24 Hours: Microbiology 01/18/17 06:05 Streptococcus pneumoniae Antigen (M - Final Urine 01/17/17 23:10 Respiratory Virus Panel (PCR) (LUC) - Final Nasopharyngeal Swab Med Orders - Current: Current Medications Albuterol (Proventil Neb Soln) 2.5 mg NEB Q4HRRT PRN PRN Reason: Shortness of Breath Last Admin: 01/18/17 21:09 Dose: 2.5 mg Albuterol/Ipratropium (Duoneb 3.0-0.5 Mg/3 Ml) 3 ml NEB QID PRN PRN Reason: Shortness of Breath Aspirin (Halfprin) 81 mg PO BID [facility] Last Admin: 01/19/17 09:28 Dose: 81 mg Budesonide (Pulmicort) 0.5 mg INH BIDRT [facility] Last Admin: 01/19/17 05:42 Dose: 0.5 mg Hydralazine HCl (Apresoline) 10 mg IVPUSH Q6H PRN PRN Reason: Hypertension Sodium Chloride (Sodium Chloride 0.45%) 1,000 mls @ 75 mls/hr IV ASDIRECTED [facility] Last Admin: 01/18/17 15:28 Dose: 75 mls/hr Levothyroxine Sodium (Synthroid) 100 mcg PO SuMoWeFr@0600 [facility] Last Admin: 01/19/17 06:12 Dose: 100 mcg Levothyroxine Sodium (Levothyroxine) 75 mcg PO TuThSa@0600 [facility] Last Admin: 01/18/17 06:10 Dose: 75 mcg Methylprednisolone Sodium Succinate (Solu-Medrol) 40 mg IVPUSH Q12H [facility] Last Admin: 01/19/17 09:28 Dose: 40 mg Nystatin (Nystop) 1 gm TOP BID PRN PRN Reason: Other Simvastatin (Zocor) 5 mg PO BEDTIME [facility] Last Admin: 01/18/17 20:54 Dose: 5 mg Sodium Chloride (Saline Flush) 10 ml FLUSH ASDIRECTED PRN PRN Reason: Keep Vein Open Last Admin: 01/17/17 14:55 Dose: 10 ml Discontinued Medications Albuterol/Ipratropium (Duoneb 3.0-0.5 Mg/3 Ml) 3 ml NEB ONETIME ONE Stop: 01/17/17 15:53 Last Admin: 01/17/17 16:11 Dose: 3 ml Levofloxacin/Dextrose 750 mg/ (Premix) 150 mls @ 100 mls/hr IV ONETIME ONE Stop: 01/17/17 17:17 Last Admin: 01/17/17 15:58 Dose: 100 mls/hr Methylprednisolone Sodium Succinate (Solu-Medrol) 125 mg IVPUSH ONETIME ONE Stop: 01/17/17 15:53 Last Admin: 01/17/17 15:57 Dose: 125 mg Methylprednisolone Sodium Succinate (Solu-Medrol) 80 mg IVPUSH Q8H [facility] Last Admin: 01/19/17 09:55 Dose: Not Given - Exam Quality Assessment: Supplemental Oxygen, DVT Prophylaxis General: Alert, Cooperative HEENT: Pupils Equal, Pupils Reactive, Mucous Membr. Moist/[place] Neck: Supple, Trachea Midline, No JVD Lungs: Clear to Auscultation Cardiovascular: Regular Rate GI/Abdominal Exam: Normal Bowel Sounds, Soft, Non-Tender, No Organomegaly, No Distention, No Abnormal Bruit, No Mass (Female) Exam: Deferred Back Exam: Normal Inspection, Decreased Range of Motion Extremities: Normal Inspection, Non-Tender, Normal Capillary Refill, Pedal Edema (1+) Peripheral Pulses: 1+: Posterior Tibial (L), Posterior Tibial (R), Dorsalis Pedis (L), Dorsalis Pedis (R), 2+: Radial (L), Radial (R) Skin: Warm, Dry Neurological: No New Focal Deficit Psy/Mental Status: Alert, Normal Affect, Normal Mood - Problem List & Annotations (1) CHF (congestive heart failure) SNOMED Code(s): 63491166 Code(s): I50.9 - HEART FAILURE, UNSPECIFIED Status: Acute Current Visit: Yes - Problem List Review Problem List Initiated/Reviewed/Updated: Yes - Plan Plan:: Impression: Query respiratory infection, COPD history-->Spirometry=moderate severe obstructive airway disease Empiric treatment started with Levoquin 750 mg Q 48 hours, renal dose. - discontinued Doubt heart failure Needs polysomnography evaluation as an outpatient HTN HLD Morbid obesity Plan: DC to SNF tomorrow Resp panel/mycoplasma/Strep pneumo - all negative. Positive rhinovirus Empiric Rx with Levoquin 750 mg Q 48 hours - stopped Steroid started - decreased dose today Home meds/daily labs SW/PT/OT consults DVT/GI prophylaxis <Jen Pedraza - Last Filed: 01/19/17 17:38> - Patient Data Vitals - Most Recent: Last Vital Signs Temp 36.4 C 01/19/17 15:21 Pulse 85 01/19/17 15:21 Resp 24 H 01/19/17 15:21 BP 123/50 L 01/19/17 15:22 Pulse Ox 97 01/19/17 15:21 I&O - Last 24 Hours: Intake & Output 10/01/19/17 01/19/17 06:59 14:59 22:59 Intake Total 1000 0 520 Output Total 50 100 Balance 950 0 420 Lab Results Last 24 Hours: Laboratory Results - last 24 hr 01/19/17 01/19/17 01/19/17 Range/Units 05:50 05:58 05:58 WBC 15.63 H (3.98-10.04) K/mm3 RBC 3.92 L (3.98-5.22) M/mm3 Hgb 12.5 (11.2-15.7) gm/L Hct 38.7 (34.1-44.9) % MCV 98.7 H (79.4-94.8) fl MCH 31.9 (25.6-32.2) pg MCHC 32.3 (32.2-35.5) g/dl RDW Std Deviation 44.0 (36.4-46.3) fL Plt Count 288 (182-369) K/mm3 MPV 11.0 (9.4-12.3) fl Neut % (Auto) 91.0 H (34.0-71.1) % Lymph % (Auto) 5.7 L (19.3-51.7) % [place]ake % (Auto) 2.9 L (4.7-12.5) % Eos % (Auto) 0 L (0.7-5.8) Baso % (Auto) 0.1 (0.1-1.2) % Neut # (Auto) 14.23 H (1.56-6.13) K/mm3 Lymph # (Auto) 0.89 L (1.18-3.74) K/mm3 [place] # (Auto) 0.46 H (0.24-0.36) K/mm3 Eos # (Auto) 0.00 L (0.04-0.36) K/mm3 Baso # (Auto) 0.01 (0.01-0.08) K/mm3 Manual Slide Review Abnormal smear Sodium 141 (136-145) mEq/L Potassium 4.9 (3.5-5.1) mEq/L Chloride 104 (98-107) mEq/L Carbon Dioxide 29 (21-32) mEq/L Anion Gap 12.9 (5-15) BUN 31 H (7-18) mg/dL Creatinine 1.4 H (0.55-1.02) mg/dL Est Cr Clr Drug Dosing 25.83 mL/min Estimated GFR (MDRD) 36 (>60) mL/min BUN/Creatinine Ratio 22.1 H (14-18) Glucose 173 H (83-115) mg/dL Calcium 9.0 (8.5-10.1) mg/dL Magnesium 2.5 H (1.8-2.4) mg/dl C-Reactive Protein 2.8 H* (<1.0) mg/dL Luc Results Last 24 Hours: Microbiology 01/18/17 06:05 Streptococcus pneumoniae Antigen (M - Final Urine 01/17/17 23:10 Respiratory Virus Panel (PCR) (LUC) - Final Nasopharyngeal Swab Med Orders - Current: Current Medications Albuterol (Proventil Neb Soln) 2.5 mg NEB Q4HRRT PRN PRN Reason: Shortness of Breath Last Admin: 01/18/17 21:09 Dose: 2.5 mg Albuterol/Ipratropium (Duoneb 3.0-0.5 Mg/3 Ml) 3 ml NEB QID PRN PRN Reason: Shortness of Breath Aspirin (Halfprin) 81 mg PO BID [facility] Last Admin: 01/19/17 09:28 Dose: 81 mg Budesonide (Pulmicort) 0.5 mg INH BIDRT [facility] Last Admin: 01/19/17 05:42 Dose: 0.5 mg Hydralazine HCl (Apresoline) 10 mg IVPUSH Q6H PRN PRN Reason: Hypertension Sodium Chloride (Sodium Chloride 0.45%) 1,000 mls @ 75 mls/hr IV ASDIRECTED [facility] Last Admin: 01/18/17 15:28 Dose: 75 mls/hr Levothyroxine Sodium (Synthroid) 100 mcg PO SuMoWeFr@0600 [facility] Last Admin: 01/19/17 06:12 Dose: 100 mcg Levothyroxine Sodium (Levothyroxine) 75 mcg PO TuThSa@0600 [facility] Last Admin: 01/18/17 06:10 Dose: 75 mcg Methylprednisolone Sodium Succinate (Solu-Medrol) 80 mg IVPUSH Q8H [facility] Nystatin (Nystop) 1 gm TOP BID PRN PRN Reason: Other Simvastatin (Zocor) 5 mg PO BEDTIME [facility] Last Admin: 01/18/17 20:54 Dose: 5 mg Sodium Chloride (Saline Flush) 10 ml FLUSH ASDIRECTED PRN PRN Reason: Keep Vein Open Last Admin: 01/17/17 14:55 Dose: 10 ml Discontinued Medications Albuterol/Ipratropium (Duoneb 3.0-0.5 Mg/3 Ml) 3 ml NEB ONETIME ONE Stop: 01/17/17 15:53 Last Admin: 01/17/17 16:11 Dose: 3 ml Levofloxacin/Dextrose 750 mg/ (Premix) 150 mls @ 100 mls/hr IV ONETIME ONE Stop: 01/17/17 17:17 Last Admin: 01/17/17 15:58 Dose: 100 mls/hr Methylprednisolone Sodium Succinate (Solu-Medrol) 125 mg IVPUSH ONETIME ONE Stop: 01/17/17 15:53 Last Admin: 01/17/17 15:57 Dose: 125 mg Methylprednisolone Sodium Succinate (Solu-Medrol) 80 mg IVPUSH Q8H [facility] Last Admin: 01/19/17 09:55 Dose: Not Given Methylprednisolone Sodium Succinate (Solu-Medrol) 40 mg IVPUSH Q12H [facility] Last Admin: 01/19/17 09:28 Dose: 40 mg - Problem List & Annotations (1) CHF (congestive heart failure) SNOMED Code(s): 93597799 Code(s): I50.9 - HEART FAILURE, UNSPECIFIED Status: Acute Current Visit: Yes - My Orders Last 24 Hours: My Active Orders 01/19/17 06:00 Levothyroxine [Synthroid] 100 mcg PO SuMoWeFr@0600 01/19/17 09:54 Evaluate for Home Oxygen [RT Evaluate for Home Oxygen] [RC] ASDIRECTED 01/19/17 17:45 methylPREDNISolone Sod Succ [Solu-MEDROL] 80 mg IVPUSH Q8H 01/20/17 05:00 BMP [BASIC METABOLIC PANEL,BMP] [CHEM] DAILY CBC WITH AUTO DIFF [HEME] DAILY CRP [C-REACTIVE PROTEIN] [CHEM] DAILY 01/20/17 05:11 MAGNESIUM [CHEM] DAILY 01/21/17 05:00 BMP [BASIC METABOLIC PANEL,BMP] [CHEM] DAILY CBC WITH AUTO DIFF [HEME] DAILY CRP [C-REACTIVE PROTEIN] [CHEM] DAILY 01/21/17 05:11 MAGNESIUM [CHEM] DAILY - Plan Plan:: JERI expected , 01/10/17
[2017-01-19] MEDS: methylPREDNISolone Sodium Succinate 125 MG/2 ML SDV IVPUSH SCH (18:52)
[2017-01-19] MEDS: Simvastatin 10 MG Tab PO SCH (21:14)
[2017-01-20] MEDS: methylPREDNISolone Sodium Succinate 125 MG/2 ML SDV IVPUSH SCH ×2 (03:11→09:39)
[2017-01-20] MEDS: Budesonide 0.5 MG/2 ML Neb Susp INH SCH (06:20)
[2017-01-20] MEDS: Levothyroxine 75 MCG Tab PO SCH (06:37)
--- NOTE | 2017-01-20 08:41 | PCM.DCSUM1 ---
<Skip Boyle - Last Filed: 01/20/17 11:30> Discharge Summary - Hospital Course Free Text/Narrative:: 86 year old female with a productive cough, unknown component of SOB, presents from [facility] to the ED. There has been no recent evaluation by a healthcare provider. The patient is a poor historian, based on the information that the ED provider obtained, she had been SOB. It is unclear whether it was with activity or at rest. She has been afebrile. There is one plus edema LE bilaterally, suspect that it is chronic. Functional capacity is unknown, however the patient appears to be profoundly sedentary. She has received Levoquin 750 mg once in the ED. She was admitted to the hospital for treatment. Levaquin was continued. Respiratory panel was ordered and revealed rhinovirus. All others were negative. Levaquin was discontinued. Chest x-ray remained essentially unchanged with nothing acute appreciated. PFT shows COPD. This apparently has not been formally diagnosed prior. She was started on methylprednisone. [facility] has refused her to return as a patient and she was accepted and [facility]. She discharge today with a stepdown steroid taper and home oxygen as she has required 1 L here. It is suggested she follow- up with her primary care provider in 7-10 days postdischarge. He is also suggested she have a polysomnography exam, as she has multiple risk factors. - Discharge Data Discharge Date: 01/20/17 (Admit Date: 01/17/17) Discharge Disposition: DC/Tfer to SNF 03 Condition: Good - Discharge Diagnosis/Problem(s) (1) COPD exacerbation SNOMED Code(s): 102301189 ICD Code: J44.1 - CHRONIC OBSTRUCTIVE PULMONARY DISEASE W (ACUTE) EXACERBATION Status: Acute Priority: High (2) Cough SNOMED Code(s): 58380674 ICD Code: R05 - COUGH Status: Acute Priority: Medium (3) Hypoxia SNOMED Code(s): 843148754 ICD Code: R09.02 - HYPOXEMIA Status: Acute Priority: Medium - Patient Summary/Data Consults: Consultations 01/18/17 10:49 Consult to Occupational Therapy [OT Evaluation and Treatment] [CONS] Routine Consult to Physical Therapy [PT Evaluation and Treatment] [CONS] Routine 01/18/17 13:24 Consult to Shredder/Granulator Operator [CONS] Routine - Patient Instructions Diet: Heart Healthy Diet Activity: As Tolerated Driving: Do Not Drive Showering/Bathing: May Shower Notify Provider of: Fever, Increased Pain, Nausea and/or Vomiting - Discharge Plan Prescriptions/Med Rec: Prednisone [IJD: Prednisone] 10 mg PO DAILY #21 tab Home Medications: Home Meds Albuterol Sulfate [Proair Respiclick] 1 puff NEB Q4HR PRN 11/27/14 [History] Aspirin [Adult Low Dose Aspirin EC] 81 mg PO BID 11/27/14 [History] Budesonide [Pulmicort] 1 vial INH BID 11/27/14 [History] Furosemide 40 mg PO BID 11/27/14 [History] Levothyroxine Sodium [Synthroid] 75 mcg PO TUTHSA 11/27/14 [History] Levothyroxine Sodium [Synthroid] 100 mcg PO SUMOWEFR 11/27/14 [History] Lisinopril 5 mg PO DAILY 11/27/14 [History] Simvastatin [Zocor] 5 mg PO BEDTIME 01/17/17 [History] Nystatin [Nystop] 15 gm TOP BID PRN 01/18/17 [History] Prednisone [IJD: Prednisone] 10 mg PO DAILY #21 tab 01/20/17 [Rx] Patient Handouts: Chronic Obstructive Pulmonary Disease Exacerbation, Easy-to- Read, Upper Respiratory Infection, Adult, [id number] Forms: ED Department Discharge Referrals: Gabby Cornell PA [Primary Care Provider] - - Discharge Summary/Plan Comment DC Time >30 min.: Yes (45 minutes) - General Info Admission Dx/Problem (Free Text: Admission Diagnosis/Problem Admission Diagnosis/Problem Hypoxia Functional Status: Reports: Pain Controlled, Tolerating Diet, Ambulating, Urinating. Denies: New Symptoms - Review of Systems General: Reports: No Symptoms HEENT: Reports: No Symptoms Pulmonary: Reports: Cough. Denies: Shortness of Breath, Pleuritic Chest Pain, Wheezing Cardiovascular: Reports: Edema. Denies: Chest Pain, Palpitations, Dyspnea on Exertion Gastrointestinal: Reports: No Symptoms Genitourinary: Reports: No Symptoms Musculoskeletal: Reports: No Symptoms Skin: Reports: No Symptoms Neurological: Reports: No Symptoms Psychiatric: Reports: No Symptoms - Patient Data Vitals - Most Recent: Last Vital Signs Temp 98.8 F 01/20/17 03:22 Pulse 75 01/20/17 03:22 Resp 20 01/20/17 03:22 BP 153/64 H 01/20/17 03:22 Pulse Ox 94 L 01/20/17 06:20 Weight - Most Recent: 112.973 kg I&O - Last 24 hours: Intake & Output 01/19/17 01/20/17 01/20/17 22:59 06:59 14:59 Intake Total 640 200 Output Total 100 Balance 540 200 Lab Results - Last 24 hrs: Laboratory Results - last 24 hr 01/20/17 01/20/17 01/20/17 Range/Units 06:40 06:40 06:40 WBC 13.70 H (3.98-10.04) K/mm3 RBC 3.89 L (3.98-5.22) M/mm3 Hgb 12.2 (11.2-15.7) gm/L Hct 37.9 (34.1-44.9) % MCV 97.4 H (79.4-94.8) fl MCH 31.4 (25.6-32.2) pg MCHC 32.2 (32.2-35.5) g/dl RDW Std Deviation 41.9 (36.4-46.3) fL Plt Count 306 (182-369) K/mm3 MPV 11.2 (9.4-12.3) fl Neut % (Auto) 90.4 H (34.0-71.1) % Lymph % (Auto) 6.1 L (19.3-51.7) % Stevens % (Auto) 3.1 L (4.7-12.5) % Eos % (Auto) 0 L (0.7-5.8) Baso % (Auto) 0.1 (0.1-1.2) % Neut # (Auto) 12.39 H (1.56-6.13) K/mm3 Lymph # (Auto) 0.84 L (1.18-3.74) K/mm3 [place] # (Auto) 0.42 H (0.24-0.36) K/mm3 Eos # (Auto) 0.00 L (0.04-0.36) K/mm3 Baso # (Auto) 0.01 (0.01-0.08) K/mm3 Manual Slide Review Abnormal smear Sodium 139 (136-145) mEq/L Potassium 5.1 (3.5-5.1) mEq/L Chloride 104 (98-107) mEq/L Carbon Dioxide 28 (21-32) mEq/L Anion Gap 12.1 (5-15) BUN 34 H (7-18) mg/dL Creatinine 1.4 H (0.55-1.02) mg/dL Est Cr Clr Drug Dosing 25.83 mL/min Estimated GFR (MDRD) 36 (>60) mL/min BUN/Creatinine Ratio 24.3 H (14-18) Glucose 170 H (83-115) mg/dL Calcium 8.7 (8.5-10.1) mg/dL Magnesium 2.5 H (1.8-2.4) mg/dl C-Reactive Protein 1.4 H* (<1.0) mg/dL TRAVIS Results - Last 24 hrs: Microbiology 01/18/17 06:05 Streptococcus pneumoniae Antigen (M - Final Urine Med Orders - Current: Current Medications Albuterol (Proventil Neb Soln) 2.5 mg NEB Q4HRRT PRN PRN Reason: Shortness of Breath Last Admin: 01/18/17 21:09 Dose: 2.5 mg Albuterol/Ipratropium (Duoneb 3.0-0.5 Mg/3 Ml) 3 ml NEB QID PRN PRN Reason: Shortness of Breath Aspirin (Halfprin) 81 mg PO BID [facility] Last Admin: 01/19/17 21:14 Dose: 81 mg Budesonide (Pulmicort) 0.5 mg INH BIDRT [facility] Last Admin: 01/20/17 06:20 Dose: 0.5 mg Hydralazine HCl (Apresoline) 10 mg IVPUSH Q6H PRN PRN Reason: Hypertension Sodium Chloride (Sodium Chloride 0.45%) 1,000 mls @ 75 mls/hr IV ASDIRECTED [facility] Last Admin: 01/18/17 15:28 Dose: 75 mls/hr Levothyroxine Sodium (Synthroid) 100 mcg PO SuMoWeFr@0600 [facility] Last Admin: 01/19/17 06:12 Dose: 100 mcg Levothyroxine Sodium (Levothyroxine) 75 mcg PO TuThSa@0600 [facility] Last Admin: 01/20/17 06:37 Dose: 75 mcg Methylprednisolone Sodium Succinate (Solu-Medrol) 80 mg IVPUSH Q8H [facility] Last Admin: 01/20/17 03:11 Dose: 80 mg Nystatin (Nystop) 1 gm TOP BID PRN PRN Reason: Other Simvastatin (Zocor) 5 mg PO BEDTIME [facility] Last Admin: 01/19/17 21:14 Dose: 5 mg Sodium Chloride (Saline Flush) 10 ml FLUSH ASDIRECTED PRN PRN Reason: Keep Vein Open Last Admin: 01/17/17 14:55 Dose: 10 ml Discontinued Medications Albuterol/Ipratropium (Duoneb 3.0-0.5 Mg/3 Ml) 3 ml NEB ONETIME ONE Stop: 01/17/17 15:53 Last Admin: 01/17/17 16:11 Dose: 3 ml Levofloxacin/Dextrose 750 mg/ (Premix) 150 mls @ 100 mls/hr IV ONETIME ONE Stop: 01/17/17 17:17 Last Admin: 01/17/17 15:58 Dose: 100 mls/hr Methylprednisolone Sodium Succinate (Solu-Medrol) 125 mg IVPUSH ONETIME ONE Stop: 01/17/17 15:53 Last Admin: 01/17/17 15:57 Dose: 125 mg Methylprednisolone Sodium Succinate (Solu-Medrol) 80 mg IVPUSH Q8H [facility] Last Admin: 01/19/17 09:55 Dose: Not Given Methylprednisolone Sodium Succinate (Solu-Medrol) 40 mg IVPUSH Q12H [facility] Last Admin: 01/19/17 09:28 Dose: 40 mg - Exam Quality Assessment: Reports: Supplemental Oxygen, DVT Prophylaxis General: Reports: Alert, Cooperative HEENT: Reports: Pupils Equal, Pupils Reactive, Mucous Membr. Moist/[place] Neck: Reports: Supple, Trachea Midline, No JVD Lungs: Reports: Clear to Auscultation, Normal Respiratory Effort Cardiovascular: Reports: Regular Rate, Regular Rhythm GI/Abdominal Exam: Normal Bowel Sounds, Soft, Non-Tender, No Organomegaly, No Distention, No Abnormal Bruit (Female) Exam: Deferred Rectal (Female) Exam: Deferred Back Exam: Reports: Normal Inspection, Decreased Range of Motion Extremities: Normal Inspection, Normal Range of Motion, Non-Tender, Pedal Edema (1-2+) Skin: Reports: Warm, Dry, Intact Neurological: Reports: No New Focal Deficit Psy/Mental Status: Reports: Alert, Normal Affect, Normal Mood *Q Meaningful Use (DIS) - VTE *Q VTE Criteria *Q: - Stroke *Q Stroke Criteria *Q: - AMI *Q AMI Criteria *Q: <Jen Pedraza Anny - Last Filed: 01/20/17 14:24> Discharge Summary - Hospital Course Free Text/Narrative:: Documented COPD on this improvement, see above for details. - Discharge Diagnosis/Problem(s) (1) CHF (congestive heart failure) SNOMED Code(s): 14155698 ICD Code: I50.9 - HEART FAILURE, UNSPECIFIED Status: Acute Priority: High Qualifiers: Congestive heart failure type: unspecified congestive heart failure type Congestive heart failure chronicity: unspecified congestive heart failure chronicity Qualified Code(s): I50.9 - Heart failure, unspecified - Patient Summary/Data Consults: Consultations 01/18/17 10:49 Consult to Occupational Therapy [OT Evaluation and Treatment] [CONS] Routine Consult to Physical Therapy [PT Evaluation and Treatment] [CONS] Routine 01/18/17 13:24 Consult to Shredder/Granulator Operator [CONS] Routine - Patient Data Vitals - Most Recent: Last Vital Signs Temp 36.9 C 01/20/17 12:00 Pulse 82 01/20/17 12:00 Resp 19 01/20/17 12:00 BP 133/56 L 01/20/17 12:00 Pulse Ox 96 01/20/17 12:00 I&O - Last 24 hours: Intake & Output 01/19/17 01/20/17 01/20/17 22:59 06:59 14:59 Intake Total 640 200 520 Output Total 100 320 Balance 540 200 200 Lab Results - Last 24 hrs: Laboratory Results - last 24 hr 01/20/17 01/20/17 01/20/17 Range/Units 06:40 06:40 06:40 WBC 13.70 H (3.98-10.04) K/mm3 RBC 3.89 L (3.98-5.22) M/mm3 Hgb 12.2 (11.2-15.7) gm/L Hct 37.9 (34.1-44.9) % MCV 97.4 H (79.4-94.8) fl MCH 31.4 (25.6-32.2) pg MCHC 32.2 (32.2-35.5) g/dl RDW Std Deviation 41.9 (36.4-46.3) fL Plt Count 306 (182-369) K/mm3 MPV 11.2 (9.4-12.3) fl Neut % (Auto) 90.4 H (34.0-71.1) % Lymph % (Auto) 6.1 L (19.3-51.7) % Stevens % (Auto) 3.1 L (4.7-12.5) % Eos % (Auto) 0 L (0.7-5.8) Baso % (Auto) 0.1 (0.1-1.2) % Neut # (Auto) 12.39 H (1.56-6.13) K/mm3 Lymph # (Auto) 0.84 L (1.18-3.74) K/mm3 [place] # (Auto) 0.42 H (0.24-0.36) K/mm3 Eos # (Auto) 0.00 L (0.04-0.36) K/mm3 Baso # (Auto) 0.01 (0.01-0.08) K/mm3 Manual Slide Review Abnormal smear Sodium 139 (136-145) mEq/L Potassium 5.1 (3.5-5.1) mEq/L Chloride 104 (98-107) mEq/L Carbon Dioxide 28 (21-32) mEq/L Anion Gap 12.1 (5-15) BUN 34 H (7-18) mg/dL Creatinine 1.4 H (0.55-1.02) mg/dL Est Cr Clr Drug Dosing 25.83 mL/min Estimated GFR (MDRD) 36 (>60) mL/min BUN/Creatinine Ratio 24.3 H (14-18) Glucose 170 H (83-115) mg/dL Calcium 8.7 (8.5-10.1) mg/dL Magnesium 2.5 H (1.8-2.4) mg/dl C-Reactive Protein 1.4 H* (<1.0) mg/dL Med Orders - Current: Current Medications Discontinued Medications Albuterol (Proventil Neb Soln) 2.5 mg NEB Q4HRRT PRN PRN Reason: Shortness of Breath Last Admin: 01/18/17 21:09 Dose: 2.5 mg Albuterol/Ipratropium (Duoneb 3.0-0.5 Mg/3 Ml) 3 ml NEB ONETIME ONE Stop: 01/17/17 15:53 Last Admin: 01/17/17 16:11 Dose: 3 ml Albuterol/Ipratropium (Duoneb 3.0-0.5 Mg/3 Ml) 3 ml NEB QID PRN PRN Reason: Shortness of Breath Aspirin (Halfprin) 81 mg PO BID [facility] Last Admin: 01/20/17 09:39 Dose: 81 mg Budesonide (Pulmicort) 0.5 mg INH BIDRT [facility] Last Admin: 01/20/17 06:20 Dose: 0.5 mg Hydralazine HCl (Apresoline) 10 mg IVPUSH Q6H PRN PRN Reason: Hypertension Levofloxacin/Dextrose 750 mg/ (Premix) 150 mls @ 100 mls/hr IV ONETIME ONE Stop: 01/17/17 17:17 Last Admin: 01/17/17 15:58 Dose: 100 mls/hr Sodium Chloride (Sodium Chloride 0.45%) 1,000 mls @ 75 mls/hr IV ASDIRECTED [facility] Last Admin: 01/18/17 15:28 Dose: 75 mls/hr Levothyroxine Sodium (Synthroid) 100 mcg PO SuMoWeFr@0600 [facility] Last Admin: 01/19/17 06:12 Dose: 100 mcg Levothyroxine Sodium (Levothyroxine) 75 mcg PO TuThSa@0600 [facility] Last Admin: 01/20/17 06:37 Dose: 75 mcg Methylprednisolone Sodium Succinate (Solu-Medrol) 125 mg IVPUSH ONETIME ONE Stop: 01/17/17 15:53 Last Admin: 01/17/17 15:57 Dose: 125 mg Methylprednisolone Sodium Succinate (Solu-Medrol) 80 mg IVPUSH Q8H [facility] Last Admin: 01/19/17 09:55 Dose: Not Given Methylprednisolone Sodium Succinate (Solu-Medrol) 40 mg IVPUSH Q12H [facility] Last Admin: 01/19/17 09:28 Dose: 40 mg Methylprednisolone Sodium Succinate (Solu-Medrol) 80 mg IVPUSH Q8H [facility] Last Admin: 01/20/17 09:39 Dose: 80 mg Nystatin (Nystop) 1 gm TOP BID PRN PRN Reason: Other Pneumococcal 13-Valent Conj Vacc (Prevnar 13) 0.5 ml IM .ONCE ONE Stop: 01/20/17 12:31 Last Admin: 01/20/17 12:35 Dose: 0.5 ml Simvastatin (Zocor) 5 mg PO BEDTIME [facility] Last Admin: 01/19/17 21:14 Dose: 5 mg Sodium Chloride (Saline Flush) 10 ml FLUSH ASDIRECTED PRN PRN Reason: Keep Vein Open Last Admin: 01/17/17 14:55 Dose: 10 ml *Q Meaningful Use (DIS) - VTE *Q VTE Criteria *Q: - Stroke *Q Stroke Criteria *Q: - AMI *Q AMI Criteria *Q:
[2017-01-20] MEDS: Aspirin 81 MG Tab.EC PO SCH (09:39)
[2017-01-20] MEDS ORDERED: Pneumococcal 13-Valent Conjugate Vaccine 0.5 ML Syringe IM ONE (12:30)
[2017-01-20 12:42] VITALS: BP 133/56
== END 2017-01-20 12:50 | DRG 191 ==
LOC: JD.ED 12:43 → UNDOADMIN 16:15 → JD.MS 16:15 → UNDODISIN 01-20 12:50
PROVIDERS: ADMIT Internal Medicine Cardiovascular Disease; ATTEND Internal Medicine Cardiovascular Disease
PROC: 3E0234Z Introduction of Serum, Toxoid and Vaccine into Muscle, Percutaneous Approach (ICD-10-PCS; principal; 2017-01-20)
DX: J44.0 Chronic obstructive pulmonary disease with (acute) lower respiratory infection (principal); J20.9 Acute bronchitis, unspecified; J44.1 Chronic obstructive pulmonary disease with (acute) exacerbation; Z68.41 Body mass index [BMI] 40.0-44.9, adult; R09.02 Hypoxemia; I10 Essential (primary) hypertension; E78.5 Hyperlipidemia, unspecified; Z85.528 Personal history of other malignant neoplasm of kidney; Z90.5 Acquired absence of kidney; E66.01 Morbid (severe) obesity due to excess calories; Z79.82 Long term (current) use of aspirin; Z79.899 Other long term (current) drug therapy; Z23 Encounter for immunization
CPT/HCPCS: 71010; 96365; 94640; 99285; 94762; 93005; 96375; 85025; 81001; 36415; 80053; 84484; 83880; 87040 ×2; J1956; J2930; J7050; 71020; 71020-26; 80048; 83735; 84443; 86140; 86738; 87486; 87581; 87633; 87641; 87798; 87804; 87899; 90670; 93010; 94010; 94760; 96366; 97110-GO; 97116-GP; 97162-GP; 97166-GO; 97530-GO; A9270-GY; G0009; J2920; J7030

== ENCOUNTER 2017-02-23 17:14 | Inpatient (IN) | payer MEDICARE, OTHER, MEDICAID ==
[2017-02-23] MEDS ORDERED: Sodium Chloride 0.9% 10 ML Syringe FLUSH PRN (17:33)
--- NOTE | 2017-02-23 18:49 | EDM.PDOC ---
ED HPI GENERAL MEDICAL PROBLEM - General Chief Complaint: Cardiovascular Problem Stated Complaint: [facility] Time Seen by Provider: 02/23/17 17:20 Source of Information: Reports: Patient, EMS, Custodial Records History Limitations: Reports: No Limitations - History of Present Illness INITIAL COMMENTS - FREE TEXT/NARRATIVE: The patient presents with low blood pressure and syncopal episode. The patient had passed out earlier this morning at 9am. Her BP was low this afternoon at 58 /43. Her BP has improved. EMS got 106 systolic. The patient has no complaints. She has no fever, chills, cough, congestion, chest pain, abdominal pain, nausea or vomiting. She does have some shortness of breath but that is normal for her. She is on 3L by [place] at home. She has a history of COPD and CHF. Onset: Gradual Duration: Day(s): Severity: Mild Improves with: Reports: None Worsens with: Reports: None Associated Symptoms: Reports: Shortness of Breath. Denies: Chest Pain, Cough, Fever/Chills, Nausea/Vomiting - Related Data Allergies Allergy/AdvReac Type Severity Reaction Status Date / Time No Known Allergies Allergy Verified 02/23/17 17:19 Home Meds: Home Meds Albuterol Sulfate [Proair Respiclick] 1 puff IH Q4H PRN 02/23/17 [History] Aspirin [Ecotrin] 81 mg PO BID 02/23/17 [History] Budesonide [Pulmicort] 0.5 mg IH BID 02/23/17 [History] Furosemide [Lasix] 40 mg PO BID 02/23/17 [History] Levothyroxine 75 mcg PO TUTHSA 02/23/17 [History] Levothyroxine [Synthroid] 100 mcg PO SUMOWEFR 02/23/17 [History] Nystatin [Nystatin Crm] 15 gm TOP BID PRN 02/23/17 [History] Sertraline [Zoloft] 25 mg PO BEDTIME 02/23/17 [History] Simvastatin [Zocor] 5 mg PO BEDTIME 02/23/17 [History] Past Medical History HEENT History: Reports: Cataract Cardiovascular History: Reports: High Cholesterol, Hypertension Respiratory History: Reports: COPD Other Genitourinary History: Kidney cancer. Kidney was removed Oncologic (Cancer) History: Reports: Other (See Below) Other Oncologic History: kidney - Past Surgical History HEENT Surgical History: Reports: Cataract Surgery Social & Family History - Family History Family Medical History: Noncontributory - Tobacco Use Smoking Status *Q: Never Smoker Second Hand Smoke Exposure: Yes - Caffeine Use Caffeine Use: Reports: Coffee Caffeine Use Comment: Patient states she drinks 3 cups decaf coffee per day - Recreational Drug Use Recreational Drug Use: No ED ROS GENERAL - Review of Systems Review Of Systems: See Below Constitutional: Reports: No Symptoms HEENT: Reports: No Symptoms Respiratory: Reports: Shortness of Breath. Denies: Cough Cardiovascular: Reports: No Symptoms Endocrine: Reports: No Symptoms GI/Abdominal: Reports: No Symptoms : Reports: No Symptoms ED EXAM, GENERAL - Physical Exam Exam: See Below Exam Limited By: No Limitations General Appearance: Alert, No Apparent Distress Ears: Normal External Exam Nose: Normal Inspection Head: Atraumatic, Normocephalic Neck: Normal Inspection Respiratory/Chest: No Respiratory Distress, Normal Breath Sounds, Rales Cardiovascular: Regular Rate, Rhythm, No Edema, No Murmur GI/Abdominal: Soft, Non-Tender, No Organomegaly, No Mass Extremities: Normal Inspection Neurological: Alert, Oriented, No Motor/Sensory Deficits EKG INTERPRETATION EKG Date: 02/23/17 Time: 17:42 Rhythm: NSR Rate (Beats/Min): 97 [place]: Normal P-Wave: Present QRS: Normal ST-T: Normal QT: Normal EKG Interpretation Comments: Run of trigeminal PVCs Course - Vital Signs Last Recorded V/S: Last Vital Signs Temp 97.3 F 02/23/17 17:19 Pulse 94 02/23/17 17:48 Resp 30 H 02/23/17 17:48 BP 91/65 02/23/17 17:48 Pulse Ox 96 02/23/17 17:48 - Orders/Labs/Meds Orders: Active Orders 24 hr Category Date Time Status Cardiac Monitoring [RC] . DIRECTED Care 02/23/17 17:33 Active EKG Documentation Completion [RC] STAT Care 02/23/17 17:33 Active Oxygen Therapy [RC] PRN Care 02/23/17 17:33 Active Peripheral IV Care [RC] . DIRECTED Care 02/23/17 17:33 Active Chest 1V Frontal [CR] Stat Exams 02/23/17 17:34 Taken UA W/MICROSCOPIC [URIN] Stat Lab 02/23/17 17:33 Uncollected Sodium Chloride 0.9% [Saline Flush] Med 02/23/17 17:33 Active 10 ml FLUSH ASDIRECTED PRN Peripheral IV Insertion Adult [OM.PC] Stat Oth 02/23/17 17:33 Ordered Medication Orders Sodium Chloride (Saline Flush) 10 ml FLUSH ASDIRECTED PRN PRN Reason: Keep Vein Open Last Admin: 02/23/17 17:49 Dose: 10 ml Labs: Laboratory Tests 02/23/17 02/23/17 Range/Units 19:24 19:24 WBC 11.40 H (3.98-10.04) K/mm3 RBC 4.01 (3.98-5.22) M/mm3 Hgb 12.9 (11.2-15.7) gm/L Hct 38.5 (34.1-44.9) % MCV 96.0 H (79.4-94.8) fl MCH 32.2 (25.6-32.2) pg MCHC 33.5 (32.2-35.5) g/dl RDW Std Deviation 44.7 (36.4-46.3) fL Plt Count 219 (182-369) K/mm3 MPV 11.0 (9.4-12.3) fl Neut % (Auto) 75.5 H (34.0-71.1) % Lymph % (Auto) 11.8 L (19.3-51.7) % [place] % (Auto) 11.9 (4.7-12.5) % Eos % (Auto) 0 L (0.7-5.8) Baso % (Auto) 0.2 (0.1-1.2) % Neut # (Auto) 8.60 H (1.56-6.13) K/mm3 Lymph # (Auto) 1.35 (1.18-3.74) K/mm3 [place] # (Auto) 1.36 H (0.24-0.36) K/mm3 Eos # (Auto) 0.00 L (0.04-0.36) K/mm3 Baso # (Auto) 0.02 (0.01-0.08) K/mm3 Sodium 136 (136-145) mEq/L Potassium 4.6 (3.5-5.1) mEq/L Chloride 97 L (98-107) mEq/L Carbon Dioxide 30 (21-32) mEq/L Anion Gap 13.6 (5-15) BUN 27 H (7-18) mg/dL Creatinine 2.5 H (0.55-1.02) mg/dL Est Cr Clr Drug Dosing 12.03 mL/min Estimated GFR (MDRD) 18 (>60) mL/min BUN/Creatinine Ratio 10.8 L (14-18) Glucose 126 H (83-115) mg/dL Calcium 9.7 (8.5-10.1) mg/dL Total Bilirubin 0.8 (0.2-1.0) mg/dL AST 32 (15-37) U/L ALT 33 (14-59) U/L Alkaline Phosphatase 100 (46-116) U/L Troponin I 0.276 H* (0.00-0.056) ng/mL NT-Pro-B Natriuret Pep 1809 H (0-450) pg/mL Total Protein 7.2 (6.4-8.2) g/dl Albumin 2.9 L (3.4-5.0) g/dl Globulin 4.3 gm/dL Albumin/Globulin Ratio 0.7 L (1-2) Meds: Medications Generic Name Dose Route Start Last Admin Trade Name Freq PRN Reason Stop Dose Admin Sodium Chloride 10 ml 02/23/17 17:33 02/23/17 17:49 Saline Flush FLUSH 10 ml ASDIRECTED PRN Administration Keep Vein Open - Re-Assessments/Exams Free Text/Narrative Re-Assessment/Exam: 02/23/17 21:08 I ordered an IV saline lock, oxygen, EKG, and labs. 02/23/17 21:09 Her WBC was elevated at 11.4. Her creatinine was 2.5. Her glucose was 126. Her troponin was elevated at 0.276. Her BNP was elevated at 1809. It appears she had a nonSTEMI and she is in renal insufficiency. I feel she needs to be admitted. I called Dr Pedraza and she agreed to the admission. 02/23/17 21:16 02/23/17 21:17 I also talked with her daughter to let her know. Departure - Departure Time of Disposition: 21:15 Disposition: Admitted As Inpatient 68 Condition: Fair Clinical Impression: Non-STEMI (non-ST elevated myocardial infarction), Renal insufficiency Syncope Qualifiers: Syncope type: vasovagal syncope Qualified Code(s): R55 - Syncope and collapse Forms: ED Department Discharge - My Orders Last 24 Hours: My Active Orders 02/23/17 17:33 Cardiac Monitoring [RC] . DIRECTED EKG Documentation Completion [RC] STAT Oxygen Therapy [RC] PRN Peripheral IV Care [RC] . DIRECTED UA W/MICROSCOPIC [URIN] Stat Sodium Chloride 0.9% [Saline Flush] 10 ml FLUSH ASDIRECTED PRN Peripheral IV Insertion Adult [OM.PC] Stat 02/23/17 17:34 Chest 1V Frontal [CR] Stat - Assessment/Plan Last 24 Hours: My Active Orders 02/23/17 17:33 Cardiac Monitoring [RC] . DIRECTED EKG Documentation Completion [RC] STAT Oxygen Therapy [RC] PRN Peripheral IV Care [RC] . DIRECTED UA W/MICROSCOPIC [URIN] Stat Sodium Chloride 0.9% [Saline Flush] 10 ml FLUSH ASDIRECTED PRN Peripheral IV Insertion Adult [OM.PC] Stat 02/23/17 17:34 Chest 1V Frontal [CR] Stat
[2017-02-23] MEDS ORDERED: Aspirin 81 MG Tab.Chew PO ONE (21:08)
[2017-02-23] MEDS ORDERED: Ondansetron 4 MG/2 ML SDV IVPUSH ONE (21:29)
--- NOTE | 2017-02-23 22:16 | PCM.HP ---
H&P History of Present Illness - General Date of Service: 02/23/17 Source of Information: Patient, Old Records, Provider, RN, RN Notes Reviewed History Limitations: Reports: No Limitations - History of Present Illness Initial Comments - Free Text/Narative: Isabela Hsieh is a 86 yo female who presented to our ED today with with low blood pressure 6 plan episode. She reportedly passed out at 9 AM this morning. Her blood pressure was taken this afternoon and found to be 58/43. EMS was called to transport and it had improved to 106 systolic. She denies any complaints in the ED. Eyes fever, chills, cough, congestion, chest pain, dull pain, nausea, or vomiting. She does have some shortness of breath but reports this is normal for her and not any worse than usual. She is normally on 3 L via nasal cannula at home. She does have a history of COPD and CHF. In the ED she was afebrile with a temp of 97.3 Fahrenheit. Pulse is 94. Respirations elevated at 30. BP 91/65. Pulse ox 96%. An EKG is obtained showing a sinus rhythm at a rate of 97. A 1st degree HB is noted. She does have occasional runs of trigeminal PVCs. No ST elevation is noted. This is interpreted by the ED provider. Labs are obtained: She does have a white count at 11.40. Hemoglobin 12.9. Hematocrit 38.5. She is macrocytic. Platelets 219 ,000. Neutrophils are elevated at 75.5. Sodium was normal at 136. Potassium 4.6. Chloride low at 97. Anion gap 13.6. BUN elevated at 27. Creatinine 2.5. EGFR is 18. Glucose is high at 126. Calcium 9.7. Total bilirubin 0.8. Liver enzymes were good with AST at 32 ALT at 33 and alkaline phosphatase at 100. Troponin is elevated 0.276. ProBNP is high at 1809. Protein is good at 7.2 albumin is low at 2.9. Aspirin, zofran, and normal saline were given in the ED. She carries a history of: Cataracts, HLD, HTN, COPD, kidney cancer with one kidney removed. She was never a smoker. She was subsequently admitted to the medical floor. She is a DNR/DNI. Her primary care provider is Dr. Marti - Related Data Allergies/Adverse Reactions: Allergies Allergy/AdvReac Type Severity Reaction Status Date / Time No Known Allergies Allergy Verified 02/23/17 17:19 Home Medications: Home Meds Albuterol Sulfate [Proair Respiclick] 1 puff IH Q4H PRN 02/23/17 [History] Aspirin [Ecotrin] 81 mg PO BID 02/23/17 [History] Budesonide [Pulmicort] 0.5 mg IH BID 02/23/17 [History] Furosemide [Lasix] 40 mg PO BID 02/23/17 [History] Levothyroxine 75 mcg PO TUTHSA 02/23/17 [History] Levothyroxine [Synthroid] 100 mcg PO SUMOWEFR 02/23/17 [History] Nystatin [Nystatin Crm] 15 gm TOP BID PRN 02/23/17 [History] Sertraline [Zoloft] 25 mg PO BEDTIME 02/23/17 [History] Simvastatin [Zocor] 5 mg PO BEDTIME 02/23/17 [History] Past Medical History HEENT History: Reports: Cataract Cardiovascular History: Reports: High Cholesterol, Hypertension Respiratory History: Reports: COPD Other Genitourinary History: Kidney cancer. Kidney was removed Oncologic (Cancer) History: Reports: Other (See Below) Other Oncologic History: kidney - Past Surgical History HEENT Surgical History: Reports: Cataract Surgery Social & Family History - Family History Family Medical History: Noncontributory - Tobacco Use Smoking Status *Q: Never Smoker Second Hand Smoke Exposure: Yes - Caffeine Use Caffeine Use: Reports: Coffee Caffeine Use Comment: Patient states she drinks 3 cups decaf coffee per day - Recreational Drug Use Recreational Drug Use: No H&P Review of Systems - Review of Systems: Review Of Systems: See Below General: Reports: No Symptoms. Denies: Fever, Chills, Malaise, Weakness, Fatigue HEENT: Reports: No Symptoms. Denies: Ear Pain, Eye Pain, Headaches, Sore Throat , Vertigo Pulmonary: Reports: Shortness of Breath (At baseline currently). Denies: Wheezing, Pleuritic Chest Pain, Cough, Sputum Cardiovascular: Reports: No Symptoms. Denies: Chest Pain, Palpitations, Dyspnea on Exertion, Edema, Lightheadedness Gastrointestinal: Reports: No Symptoms. Denies: Abdominal Pain, Constipation, Diarrhea, Difficulty Swallowing, Nausea, Vomiting Genitourinary: Reports: No Symptoms. Denies: Dysuria, Frequency, Burning, Pain , Urgency, Incontinence Musculoskeletal: Reports: No Symptoms. Denies: Neck Pain, Shoulder Pain, Arm Pain, Back Pain, Hand Pain, Leg Pain, Foot Pain, Joint Pain, Joint Swelling, Muscle Pain, Muscle Stiffness, Other Skin: Reports: No Symptoms Psychiatric: Reports: No Symptoms. Denies: Confusion, Depression, Mood Lability , Anxiety, Agitation Neurological: Reports: No Symptoms. Denies: Confusion, Dizziness, Headache, Numbness, Trouble Speaking, Difficulty Walking, Weakness, Change in Speech Hematologic/Lymphatic: Reports: No Symptoms Immunologic: Reports: No Symptoms Exam - Exam Exam: See Below - Vital Signs Vital Signs: Last Vital Signs Temp 97.3 F 02/23/17 17:19 Pulse 92 02/23/17 21:00 Resp 20 02/23/17 21:00 BP 99/63 02/23/17 21:00 Pulse Ox 96 02/23/17 21:00 Weight: 247 lb - Exam Quality Assessment: Supplemental Oxygen General: Alert, Oriented, Cooperative HEENT: Conjunctiva Clear, EACs Clear, EOMI, Hearing Intact, Mucosa Moist & [place] , Nares Patent, Normal Nasal Septum, Posterior Pharynx Clear, TMs Clear, PERRLA Neck: Supple, Trachea Midline. No: JVD, Thyromegaly Lungs: Clear to Auscultation, Normal Respiratory Effort Cardiovascular: Regular Rate, Regular Rhythm GI/Abdominal Exam: Normal Bowel Sounds, Soft, Non-Tender, No Organomegaly, No Distention, No Abnormal Bruit, No Mass, Pelvis Stable (Female) Exam: Deferred Rectal (Female) Exam: Deferred Back Exam: Normal Inspection, Full Range of Motion Extremities: Normal Inspection, Normal Range of Motion, Non-Tender, No Pedal Edema, Normal Capillary Refill Peripheral Pulses: 2+: Radial (L), Radial (R), Posterior Tibial (L), Posterior Tibial (R), Dorsalis Pedis (L), Dorsalis Pedis (R) Skin: Warm, Dry, Intact Neurological: Cranial Nerves Intact (87 grossly), Reflexes Equal Bilateral Neuro Extensive - Mental Status: Alert, Oriented x3, Normal Mood/Affect, Other ( Appears to have some memory loss. Multiple staph and providers have told the patient she is having a heart attack however she seems surprised every time someone mentions it and denies it.). No: Memory Intact Neuro Extensive - Motor, Sensory, Reflexes: CN II-XII Intact (Grossly) Psychiatric: Alert, Normal Affect, Normal Mood - Patient Data Lab Results Last 24 hrs: Laboratory Results - last 24 hr 02/23/17 02/23/17 Range/Units 19:24 19:24 WBC 11.40 H (3.98-10.04) K/mm3 RBC 4.01 (3.98-5.22) M/mm3 Hgb 12.9 (11.2-15.7) gm/L Hct 38.5 (34.1-44.9) % MCV 96.0 H (79.4-94.8) fl MCH 32.2 (25.6-32.2) pg MCHC 33.5 (32.2-35.5) g/dl RDW Std Deviation 44.7 (36.4-46.3) fL Plt Count 219 (182-369) K/mm3 MPV 11.0 (9.4-12.3) fl Neut % (Auto) 75.5 H (34.0-71.1) % Lymph % (Auto) 11.8 L (19.3-51.7) % [place] % (Auto) 11.9 (4.7-12.5) % Eos % (Auto) 0 L (0.7-5.8) Baso % (Auto) 0.2 (0.1-1.2) % Neut # (Auto) 8.60 H (1.56-6.13) K/mm3 Lymph # (Auto) 1.35 (1.18-3.74) K/mm3 [place] # (Auto) 1.36 H (0.24-0.36) K/mm3 Eos # (Auto) 0.00 L (0.04-0.36) K/mm3 Baso # (Auto) 0.02 (0.01-0.08) K/mm3 Sodium 136 (136-145) mEq/L Potassium 4.6 (3.5-5.1) mEq/L Chloride 97 L (98-107) mEq/L Carbon Dioxide 30 (21-32) mEq/L Anion Gap 13.6 (5-15) BUN 27 H (7-18) mg/dL Creatinine 2.5 H (0.55-1.02) mg/dL Est Cr Clr Drug Dosing 12.03 mL/min Estimated GFR (MDRD) 18 (>60) mL/min BUN/Creatinine Ratio 10.8 L (14-18) Glucose 126 H (83-115) mg/dL Calcium 9.7 (8.5-10.1) mg/dL Total Bilirubin 0.8 (0.2-1.0) mg/dL AST 32 (15-37) U/L ALT 33 (14-59) U/L Alkaline Phosphatase 100 (46-116) U/L Troponin I 0.276 H* (0.00-0.056) ng/mL NT-Pro-B Natriuret Pep 1809 H (0-450) pg/mL Total Protein 7.2 (6.4-8.2) g/dl Albumin 2.9 L (3.4-5.0) g/dl Globulin 4.3 gm/dL Albumin/Globulin Ratio 0.7 L (1-2) Result Diagrams: 02/23/17 19:24 02/23/17 19:24 *Q Meaningful Use (ADM) - VTE *Q VTE Criteria *Q: - Stroke *Q Stroke Criteria *Q: - AMI *Q AMI Criteria *Q: - Problem List (1) Non-STEMI (non-ST elevated myocardial infarction) SNOMED Code(s): 397770443 ICD Code: I21.4 - NON-ST ELEVATION (NSTEMI) MYOCARDIAL INFARCTION Status: Acute Current Visit: Yes (2) CKD (chronic kidney disease) stage 4, GFR 15-29 ml/min SNOMED Code(s): 044408283 ICD Code: N18.4 - CHRONIC KIDNEY DISEASE, STAGE 4 (SEVERE) Status: Acute Current Visit: Yes (3) HLD (hyperlipidemia) SNOMED Code(s): 79120022 ICD Code: E78.5 - HYPERLIPIDEMIA, UNSPECIFIED Status: Chronic Priority: Low Current Visit: No Qualifiers: Hyperlipidemia type: unspecified Qualified Code(s): E78.5 - Hyperlipidemia , unspecified (4) HTN (hypertension) SNOMED Code(s): 47697705 ICD Code: I10 - ESSENTIAL (PRIMARY) HYPERTENSION Status: Chronic Priority : Low Current Visit: No Qualifiers: Hypertension type: unspecified Qualified Code(s): I10 - Essential (primary ) hypertension (5) History of nephrectomy, unilateral SNOMED Code(s): 50139014641845 ICD Code: Z90.5 - ACQUIRED ABSENCE OF KIDNEY Status: Chronic Priority: Low Current Visit: Yes Problem List Initiated/Reviewed/Updated: Yes Orders Last 24hrs: Active Orders 24 hr Category Date Time Status Cardiac Monitoring [RC] . DIRECTED Care 02/23/17 17:33 Active EKG Documentation Completion [RC] STAT Care 02/23/17 17:33 Active Oxygen Therapy [RC] PRN Care 02/23/17 17:33 Active Peripheral IV Care [RC] . DIRECTED Care 02/23/17 17:33 Active Chest 1V Frontal [CR] Stat Exams 02/23/17 17:34 Taken UA W/MICROSCOPIC [URIN] Stat Lab 02/23/17 17:33 Uncollected Sodium Chloride 0.9% [Saline Flush] Med 02/23/17 17:33 Active 10 ml FLUSH ASDIRECTED PRN Peripheral IV Insertion Adult [OM.PC] Stat Oth 02/23/17 17:33 Ordered Medication Orders Sodium Chloride (Saline Flush) 10 ml FLUSH ASDIRECTED PRN PRN Reason: Keep Vein Open Last Admin: 02/23/17 17:49 Dose: 10 ml Assessment/Plan Comment:: I/P: Acute: Non-STEMI -Came to ED with hypotension and syncopal episode. -BP reported to be 58/43 at [facility] -Denies any CP or worsing SOB, although pt is chronically SOB and oxygen dependant at 3L -EKG in ED shows NSR at [address] elevation or depression. 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 -Troponin 0.276 - repeat in am -Pro-BNP 1809 -ASA given in ED -On home ASA -Plavix 300mg ordered -Heparin per protocol -Repeat 12-lead EKG in AM -Lipid panel ordered -Continuous telemetry -Consider echo - last echo in our system was 2014 -Will hold BB due to hypotension and acute renal failure -Patient would like to stay here and not be transferred -Pt. has been told by multiple providers and staff that she is having an GA. She seems surprised when I talk with her about it. She denies the fact that she is having GA after I explain it to her. Renal insufficiency -Acute on chronic -Hx/o nephrectomy -Baseline eGFR appears to be mid to low 30's -eGFR today is 18 -BUN 27 -Creatine 2.5 -500 mL fluid bolus now -Hypotensive -Caution with fluids due to ongoing Non-STEMI -Diurese as needed with caution Chronic: Cataract HLD HTN COPD Nephrectomy Plain: Admit to medical floor with telemetry CM/SW for discharge planning PT/OT DVT/PE Prophylaxis: GIOVANI Hose, Heparin and Plavix GI prophylaxis: Pepcid Other orders as indicated above Home meds as ordered Routine AM labs
[2017-02-23] MEDS ORDERED: Polyethylene Glycol 3350 Powder 17 GM Packet PO PRN (23:11)
[2017-02-23] MEDS ORDERED: Albuterol/Ipratropium 3.0-0.5 MG/3 ML Neb Soln NEB PRN (23:11)
[2017-02-23] MEDS ORDERED: Acetaminophen/HYDROcodone 325-5 MG Tab PO PRN (23:11)
[2017-02-23] MEDS ORDERED: Ondansetron 4 MG Tab.DIS PO PRN (23:11)
[2017-02-23] MEDS ORDERED: Bisacodyl 5 MG Tab PO PRN (23:11)
[2017-02-23] MEDS ORDERED: Ondansetron 4 MG/2 ML SDV IV PRN (23:11)
[2017-02-23] MEDS ORDERED: Docusate Sodium 100 MG Cap PO PRN (23:11)
[2017-02-23] MEDS ORDERED: Acetaminophen 325 MG Tab PO PRN (23:11)
[2017-02-23] MEDS ORDERED: Heparin Sodium 5,000 Units/ML Vial IVPUSH ONE (23:16)
[2017-02-23] MEDS ORDERED: Clopidogrel 75 MG Tab PO ONE (23:29)
[2017-02-23] MEDS ORDERED: Nitroglycerin 0.4 MG Tab.SL SL PRN (23:41)
[2017-02-23] MEDS ORDERED: Sodium Chloride 0.9% 1,000 ML IV SCH (23:45)
[2017-02-24] MEDS ORDERED: Nystatin Topical Powder 15 GM Bottle TOP PRN (00:34)
[2017-02-24] MEDS: Heparin Sodium/D5W 25,000 UNITS/500 ML BAG IV SCH (00:48)
[2017-02-24] MEDS: Famotidine 20 MG Tab PO SCH ×2 (00:55→08:37)
[2017-02-24] MEDS: Levothyroxine 75 MCG Tab PO SCH (06:37)
[2017-02-24] MEDS: Furosemide 40 MG Tab PO SCH (08:37)
[2017-02-24] MEDS: Budesonide 0.5 MG/2 ML Neb Susp INH SCH ×2 (09:02→21:36)
[2017-02-24] MEDS ORDERED: hydrALAZINE 20 MG/ML SDV IVPUSH PRN (10:46)
[2017-02-24] MEDS ORDERED: Sodium Chloride 0.45% 1,000 ML IV SCH ×4 (11:00→20:45)
[2017-02-24] MEDS: Clopidogrel 75 MG Tab PO SCH (11:15)
[2017-02-24] MEDS: Aspirin 81 MG Tab.EC PO SCH ×2 (11:15→21:49)
--- NOTE | 2017-02-24 12:28 | PCM.PN ---
- General Info Date of Service: 02/24/17 Functional Status: Reports: Pain Controlled, Tolerating Diet, Urinating - Review of Systems General: Reports: Weakness HEENT: Reports: No Symptoms Pulmonary: Reports: No Symptoms Cardiovascular: Reports: No Symptoms Gastrointestinal: Reports: No Symptoms Genitourinary: Reports: No Symptoms Musculoskeletal: Reports: No Symptoms Skin: Reports: No Symptoms Neurological: Reports: No Symptoms Psychiatric: Reports: No Symptoms - Patient Data Vitals - Most Recent: Last Vital Signs Temp 36.7 C 02/24/17 11:26 Pulse 97 02/24/17 11:26 Resp 18 02/24/17 11:26 BP 94/55 L 02/24/17 11:36 Pulse Ox 97 02/24/17 11:26 Weight - Most Recent: 103.136 kg I&O - Last 24 Hours: Intake & Output 02/23/17 02/24/17 02/24/17 22:59 06:59 14:59 Intake Total 664 420 Balance 664 420 Lab Results Last 24 Hours: Laboratory Results - last 24 hr 02/24/17 02/24/17 02/24/17 Range/Units 00:47 05:38 06:20 WBC 9.68 (3.98-10.04) K/mm3 RBC 3.62 L (3.98-5.22) M/mm3 Hgb 11.4 (11.2-15.7) gm/L Hct 35.1 (34.1-44.9) % MCV 97.0 H (79.4-94.8) fl MCH 31.5 (25.6-32.2) pg MCHC 32.5 (32.2-35.5) g/dl RDW Std Deviation 45.4 (36.4-46.3) fL Plt Count 187 (182-369) K/mm3 MPV 11.1 (9.4-12.3) fl Neut % (Auto) 69.1 (34.0-71.1) % Lymph % (Auto) 15.6 L (19.3-51.7) % [place] % (Auto) 13.8 H (4.7-12.5) % Eos % (Auto) 0.8 (0.7-5.8) Baso % (Auto) 0.3 (0.1-1.2) % Neut # (Auto) 6.68 H (1.56-6.13) K/mm3 Lymph # (Auto) 1.51 (1.18-3.74) K/mm3 [place] # (Auto) 1.34 H (0.24-0.36) K/mm3 Eos # (Auto) 0.08 (0.04-0.36) K/mm3 Baso # (Auto) 0.03 (0.01-0.08) K/mm3 APTT (22-36) SECONDS Sodium (136-145) mEq/L Potassium (3.5-5.1) mEq/L Chloride (98-107) mEq/L Carbon Dioxide (21-32) mEq/L Anion Gap (5-15) BUN (7-18) mg/dL Creatinine (0.55-1.02) mg/dL Est Cr Clr Drug Dosing mL/min Estimated GFR (MDRD) (>60) mL/min BUN/Creatinine Ratio (14-18) Glucose (83-115) mg/dL Hemoglobin A1c (4.50-6.20) % Calcium (8.5-10.1) mg/dL Magnesium (1.8-2.4) mg/dl Troponin I (0.00-0.056) ng/mL NT-Pro-B Natriuret Pep (0-450) pg/mL Triglycerides (<150) mg/dL Cholesterol (<200) mg/dL LDL Cholesterol Direct (<100) mg/dL HDL Cholesterol (40-59) mg/dL TSH 3rd Generation (0.358-3.74) uIU/mL Urine Color Dark yellow (Yellow) Urine Appearance Slt cloudy H (Clear) Urine pH 5.5 (5.0-8.0) Ur Specific [place] 1.020 (1.005-1.030) Urine Protein 1+ H (Negative) Urine Glucose (UA) Negative (Negative) Urine Ketones Negative (Negative) Urine Occult Blood Negative (Negative) Urine Nitrite Negative (Negative) Urine Bilirubin 1+ H (Negative) Urine Urobilinogen 0.2 (0.2-1.0) Ur Leukocyte Esterase 1+ H (Negative) Urine RBC Not seen (0-5) /hpf Urine WBC 10-20 H (0-5) /hpf Ur Epithelial Cells 0-5 (0-5) /hpf Urine Bacteria Many H (FEW) /hpf Hyaline Casts 0-5 (0-5) /lpf Urine Mucus Few (FEW) /hpf MRSA (PCR) Negative 02/24/17 02/24/17 02/24/17 Range/Units 06:20 06:20 06:20 WBC (3.98-10.04) K/mm3 RBC (3.98-5.22) M/mm3 Hgb (11.2-15.7) gm/L Hct (34.1-44.9) % MCV (79.4-94.8) fl MCH (25.6-32.2) pg MCHC (32.2-35.5) g/dl RDW Std Deviation (36.4-46.3) fL Plt Count (182-369) K/mm3 MPV (9.4-12.3) fl Neut % (Auto) (34.0-71.1) % Lymph % (Auto) (19.3-51.7) % [place] % (Auto) (4.7-12.5) % Eos % (Auto) (0.7-5.8) Baso % (Auto) (0.1-1.2) % Neut # (Auto) (1.56-6.13) K/mm3 Lymph # (Auto) (1.18-3.74) K/mm3 [place] # (Auto) (0.24-0.36) K/mm3 Eos # (Auto) (0.04-0.36) K/mm3 Baso # (Auto) (0.01-0.08) K/mm3 APTT 78 H (22-36) SECONDS Sodium 136 (136-145) mEq/L Potassium 4.2 (3.5-5.1) mEq/L Chloride 100 (98-107) mEq/L Carbon Dioxide 29 (21-32) mEq/L Anion Gap 11.2 (5-15) BUN 27 H (7-18) mg/dL Creatinine 2.2 H (0.55-1.02) mg/dL Est Cr Clr Drug Dosing 13.67 mL/min Estimated GFR (MDRD) 21 (>60) mL/min BUN/Creatinine Ratio 12.3 L (14-18) Glucose 105 (83-115) mg/dL Hemoglobin A1c 6.40 H (4.50-6.20) % Calcium 9.0 (8.5-10.1) mg/dL Magnesium 2.3 (1.8-2.4) mg/dl Troponin I 0.180 H* (0.00-0.056) ng/mL NT-Pro-B Natriuret Pep 2384 H (0-450) pg/mL Triglycerides 74 (<150) mg/dL Cholesterol 136 (<200) mg/dL LDL Cholesterol Direct 85 (<100) mg/dL HDL Cholesterol 47.0 (40-59) mg/dL TSH 3rd Generation 1.441 (0.358-3.74) uIU/mL Urine Color (Yellow) Urine Appearance (Clear) Urine pH (5.0-8.0) Ur Specific [place] (1.005-1.030) Urine Protein (Negative) Urine Glucose (UA) (Negative) Urine Ketones (Negative) Urine Occult Blood (Negative) Urine Nitrite (Negative) Urine Bilirubin (Negative) Urine Urobilinogen (0.2-1.0) Ur Leukocyte Esterase (Negative) Urine RBC (0-5) /hpf Urine WBC (0-5) /hpf Ur Epithelial Cells (0-5) /hpf Urine Bacteria (FEW) /hpf Hyaline Casts (0-5) /lpf Urine Mucus (FEW) /hpf MRSA (PCR) 02/24/17 Range/Units 11:02 WBC (3.98-10.04) K/mm3 RBC (3.98-5.22) M/mm3 Hgb (11.2-15.7) gm/L Hct (34.1-44.9) % MCV (79.4-94.8) fl MCH (25.6-32.2) pg MCHC (32.2-35.5) g/dl RDW Std Deviation (36.4-46.3) fL Plt Count (182-369) K/mm3 MPV (9.4-12.3) fl Neut % (Auto) (34.0-71.1) % Lymph % (Auto) (19.3-51.7) % [place] % (Auto) (4.7-12.5) % Eos % (Auto) (0.7-5.8) Baso % (Auto) (0.1-1.2) % Neut # (Auto) (1.56-6.13) K/mm3 Lymph # (Auto) (1.18-3.74) K/mm3 [place] # (Auto) (0.24-0.36) K/mm3 Eos # (Auto) (0.04-0.36) K/mm3 Baso # (Auto) (0.01-0.08) K/mm3 APTT 57 H (22-36) SECONDS Sodium (136-145) mEq/L Potassium (3.5-5.1) mEq/L Chloride (98-107) mEq/L Carbon Dioxide (21-32) mEq/L Anion Gap (5-15) BUN (7-18) mg/dL Creatinine (0.55-1.02) mg/dL Est Cr Clr Drug Dosing mL/min Estimated GFR (MDRD) (>60) mL/min BUN/Creatinine Ratio (14-18) Glucose (83-115) mg/dL Hemoglobin A1c (4.50-6.20) % Calcium (8.5-10.1) mg/dL Magnesium (1.8-2.4) mg/dl Troponin I (0.00-0.056) ng/mL NT-Pro-B Natriuret Pep (0-450) pg/mL Triglycerides (<150) mg/dL Cholesterol (<200) mg/dL LDL Cholesterol Direct (<100) mg/dL HDL Cholesterol (40-59) mg/dL TSH 3rd Generation (0.358-3.74) uIU/mL Urine Color (Yellow) Urine Appearance (Clear) Urine pH (5.0-8.0) Ur Specific [place] (1.005-1.030) Urine Protein (Negative) Urine Glucose (UA) (Negative) Urine Ketones (Negative) Urine Occult Blood (Negative) Urine Nitrite (Negative) Urine Bilirubin (Negative) Urine Urobilinogen (0.2-1.0) Ur Leukocyte Esterase (Negative) Urine RBC (0-5) /hpf Urine WBC (0-5) /hpf Ur Epithelial Cells (0-5) /hpf Urine Bacteria (FEW) /hpf Hyaline Casts (0-5) /lpf Urine Mucus (FEW) /hpf MRSA (PCR) Med Orders - Current: Current Medications Acetaminophen (Tylenol) 650 mg PO Q4H PRN PRN Reason: Pain (Mild 1-3)/fever Hydrocodone Bitart/Acetaminophen ([place] 325-5 Mg) 1 tab PO Q4H PRN PRN Reason: Pain (moderate 4-6) Albuterol/Ipratropium (Duoneb 3.0-0.5 Mg/3 Ml) 3 ml NEB Q4H PRN PRN Reason: Shortness Of Breath/wheezing Aspirin (Halfprin) 81 mg PO BID [facility] Last Admin: 02/24/17 11:15 Dose: 81 mg Bisacodyl (Dulcolax) 5 mg PO DAILY PRN PRN Reason: Constipation Budesonide (Pulmicort) 0.5 mg INH BID [facility] Last Admin: 02/24/17 09:02 Dose: 0.5 mg Clopidogrel Bisulfate (Plavix) 75 mg PO DAILY [facility] Last Admin: 02/24/17 11:15 Dose: 75 mg Docusate Sodium (Colace) 100 mg PO BID PRN PRN Reason: Constipation Famotidine (Pepcid) 20 mg PO DAILY [facility] Furosemide (Lasix) 40 mg PO BID [facility] Last Admin: 02/24/17 08:37 Dose: 40 mg Furosemide (Lasix) 20 mg IVPUSH NOW ONE Stop: 02/24/17 14:01 Hydralazine HCl (Apresoline) 10 mg IVPUSH Q6H PRN PRN Reason: Hypertension Heparin Sodium/Dextrose (Heparin 25,000 Units In D5w 500 Ml) 25,000 units in 500 mls @ 20 mls/hr IV TITRATE [facility] PRN Reason: Protocol Last Admin: 02/24/17 00:48 Dose: 20 mls/hr Sodium Chloride (Sodium Chloride 0.45%) 1,000 mls @ 75 mls/hr IV ASDIRECTED [facility] Stop: 02/24/17 17:00 Last Admin: 02/24/17 11:25 Dose: 75 mls/hr Levothyroxine Sodium (Levothyroxine) 75 mcg PO [id number]@0730 [facility] Last Admin: 02/24/17 06:37 Dose: 75 mcg Levothyroxine Sodium (Synthroid) 100 mcg PO SuMoWeFr@0730 [facility] Nitroglycerin (Nitrostat) 0.4 mg SL Q5M PRN PRN Reason: Chest Pain Nystatin (Nystop) 15 gm TOP BID PRN PRN Reason: Rash Ondansetron HCl (Zofran Odt) 4 mg PO Q6H PRN PRN Reason: nausea, able to take PO Ondansetron HCl (Zofran) 4 mg IV Q6H PRN PRN Reason: Nausea/Vomiting Polyethylene Glycol (Miralax) 17 gm PO DAILY PRN PRN Reason: Constipation Senna/Docusate Sodium (Senna Plus) 1 tab PO BID PRN PRN Reason: Constipation Sertraline HCl (Zoloft) 25 mg PO BEDTIME RIAZ Simvastatin (Zocor) 5 mg PO BEDTIME [facility] Sodium Chloride (Saline Flush) 10 ml FLUSH ASDIRECTED PRN PRN Reason: Keep Vein Open Last Admin: 02/23/17 17:49 Dose: 10 ml Discontinued Medications Aspirin (Aspirin) 324 mg PO ONETIME ONE Stop: 02/23/17 21:09 Last Admin: 02/23/17 21:21 Dose: 324 mg Clopidogrel Bisulfate (Plavix) 300 mg PO ONETIME ONE Stop: 02/23/17 23:30 Last Admin: 02/24/17 00:06 Dose: 300 mg Famotidine (Pepcid) 20 mg PO BID [facility] Last Admin: 02/24/17 08:37 Dose: 20 mg Heparin Sodium (Porcine) (Heparin Sodium) 5,000 units IVPUSH .BOLUS ONE Stop: 02/23/17 23:17 Last Admin: 02/24/17 00:09 Dose: 5,000 units Sodium Chloride (Normal Saline) 1,000 mls @ 250 mls/hr IV ASDIRECTED [facility] Last Admin: 02/24/17 00:02 Dose: 250 mls/hr Ondansetron HCl (Zofran) 4 mg IVPUSH ONETIME ONE Stop: 02/23/17 21:30 Last Admin: 02/23/17 21:37 Dose: 4 mg - Exam Quality Assessment: Supplemental Oxygen, DVT Prophylaxis General: Alert, Oriented, Cooperative, No Acute Distress HEENT: Pupils Equal, Pupils Reactive, EOMI Neck: Supple, Trachea Midline, No JVD Lungs: Normal Respiratory Effort Cardiovascular: Regular Rate GI/Abdominal Exam: Normal Bowel Sounds, Soft, Non-Tender, No Organomegaly, No Distention (Female) Exam: Deferred Back Exam: Normal Inspection Extremities: Normal Inspection Skin: Warm Neurological: No New Focal Deficit Psy/Mental Status: Alert, Normal Affect, Normal Mood - Problem List Review Problem List Initiated/Reviewed/Updated: Yes - My Orders Last 24 Hours: My Active Orders 02/23/17 22:34 Admission Status [Patient Status] [ADT] Routine 02/24/17 10:45 Aspirin [Halfprin] 81 mg PO BID Clopidogrel [Plavix] 75 mg PO DAILY 02/24/17 10:46 hydrALAZINE [Apresoline] 10 mg IVPUSH Q6H PRN 02/24/17 11:00 Sodium Chloride 0.45% 1,000 ml IV ASDIRECTED 02/24/17 14:00 Furosemide [Lasix] 20 mg IVPUSH NOW ONE 02/24/17 16:00 TROPONIN I [CHEM] Routine - Plan Plan:: I/P: Acute: Non-STEMI -EKG in ED shows NSR at [address] elevation or depression. 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 -Pro-BNP 1809 -ASA given in ED -On home ASA -Plavix 300mg ordered -Heparin per protocol-->stop today -Pt. has been told by multiple providers and staff that she is having an IL. She seems surprised when I talk with her about it. She denies the fact that she is having IL after I explain it to her. Renal insufficiency -Acute on chronic -Hx/o nephrectomy -Diurese as needed Chronic: Cataract HLD HTN COPD Nephrectomy Plain: Home meds Start cardiac meds Diurese as needed; avoid AL/ARB with CKD PCP/nephrology/cardiology at [facility] CM/SW for discharge planning PT/OT DVT/PE Prophylaxis: GIOVANI Hose, Heparin and Plavix GI prophylaxis: Pepcid Other orders as indicated above Home meds as ordered Routine AM labs
[2017-02-24] MEDS ORDERED: Furosemide 20 MG/2 ML VIAL IVPUSH ONE (14:00)
[2017-02-24] MEDS ORDERED: Sodium Chloride 0.9% 250 ML IV ONE (21:00)
[2017-02-24] MEDS ORDERED: cefTRIAXone 2 GM in Sodium Chloride 0.9% 100 ML IV SCH (21:00)
[2017-02-24] MEDS: Simvastatin 10 MG Tab PO SCH (21:49)
[2017-02-24] MEDS: Sertraline 25 MG Tab PO SCH (21:49)
[2017-02-24] MEDS ORDERED: Sodium Chloride 0.9% 1,000 ML IV SCH (22:00)
[2017-02-25] MEDS: Heparin Sodium/D5W 25,000 UNITS/500 ML BAG IV SCH (03:09)
[2017-02-25] MEDS: Levothyroxine 100 MCG Tab PO SCH (06:57)
[2017-02-25] MEDS: Aspirin 81 MG Tab.EC PO SCH ×2 (08:11→20:16)
[2017-02-25] MEDS: Famotidine 20 MG Tab PO SCH (08:11)
[2017-02-25] MEDS: Clopidogrel 75 MG Tab PO SCH (08:11)
[2017-02-25] MEDS: Budesonide 0.5 MG/2 ML Neb Susp INH SCH ×2 (08:58→21:00)
--- NOTE | 2017-02-25 17:37 | PCM.PN ---
- General Info Date of Service: 02/25/17 Functional Status: Reports: Tolerating Diet, Urinating - Review of Systems General: Reports: Weakness HEENT: Reports: No Symptoms Pulmonary: Reports: No Symptoms Cardiovascular: Reports: No Symptoms Gastrointestinal: Reports: No Symptoms Genitourinary: Reports: No Symptoms Musculoskeletal: Reports: No Symptoms Skin: Reports: No Symptoms Neurological: Reports: No Symptoms Psychiatric: Reports: No Symptoms - Patient Data Vitals - Most Recent: Last Vital Signs Temp 37.0 C 02/25/17 16:51 Pulse 68 02/25/17 16:51 Resp 18 02/25/17 16:51 BP 117/55 L 02/25/17 16:51 Pulse Ox 99 02/25/17 16:51 Weight - Most Recent: 103.136 kg I&O - Last 24 Hours: Intake & Output 02/25/17 02/25/17 02/25/17 06:59 14:59 22:59 Intake Total 2014 120 0 Output Total 350 Balance 1664 120 0 Lab Results Last 24 Hours: Laboratory Results - last 24 hr 02/25/17 02/25/17 Range/Units 06:25 06:25 WBC 9.51 (3.98-10.04) K/mm3 RBC 3.43 L (3.98-5.22) M/mm3 Hgb 10.9 L (11.2-15.7) gm/L Hct 33.4 L (34.1-44.9) % MCV 97.4 H (79.4-94.8) fl MCH 31.8 (25.6-32.2) pg MCHC 32.6 (32.2-35.5) g/dl RDW Std Deviation 44.9 (36.4-46.3) fL Plt Count 186 (182-369) K/mm3 MPV 11.2 (9.4-12.3) fl Neut % (Auto) 68.8 (34.0-71.1) % Lymph % (Auto) 15.2 L (19.3-51.7) % [place] % (Auto) 13.5 H (4.7-12.5) % Eos % (Auto) 1.5 (0.7-5.8) Baso % (Auto) 0.4 (0.1-1.2) % Neut # (Auto) 6.54 H (1.56-6.13) K/mm3 Lymph # (Auto) 1.45 (1.18-3.74) K/mm3 [place] # (Auto) 1.28 H (0.24-0.36) K/mm3 Eos # (Auto) 0.14 (0.04-0.36) K/mm3 Baso # (Auto) 0.04 (0.01-0.08) K/mm3 Sodium 136 (136-145) mEq/L Potassium 4.2 (3.5-5.1) mEq/L Chloride 100 (98-107) mEq/L Carbon Dioxide 29 (21-32) mEq/L Anion Gap 11.2 (5-15) BUN 33 H (7-18) mg/dL Creatinine 1.8 H (0.55-1.02) mg/dL Est Cr Clr Drug Dosing 16.71 mL/min Estimated GFR (MDRD) 27 (>60) mL/min BUN/Creatinine Ratio 18.3 H (14-18) Glucose 101 (83-115) mg/dL Calcium 8.6 (8.5-10.1) mg/dL Magnesium 2.1 (1.8-2.4) mg/dl Troponin I 0.079 H* (0.00-0.056) ng/mL NT-Pro-B Natriuret Pep 3876 H (0-450) pg/mL Med Orders - Current: Current Medications Acetaminophen (Tylenol) 650 mg PO Q4H PRN PRN Reason: Pain (Mild 1-3)/fever Hydrocodone Bitart/Acetaminophen ([place] 325-5 Mg) 1 tab PO Q4H PRN PRN Reason: Pain (moderate 4-6) Last Admin: 02/24/17 21:50 Dose: 1 tab Albuterol/Ipratropium (Duoneb 3.0-0.5 Mg/3 Ml) 3 ml NEB Q4H PRN PRN Reason: Shortness Of Breath/wheezing Aspirin (Halfprin) 81 mg PO BID [facility] Last Admin: 02/25/17 08:11 Dose: 81 mg Bisacodyl (Dulcolax) 5 mg PO DAILY PRN PRN Reason: Constipation Budesonide (Pulmicort) 0.5 mg INH BID [facility] Last Admin: 02/25/17 08:58 Dose: 0.5 mg Ceftriaxone Sodium (Rocephin) 2 gm IVPUSH Q24H [facility] Clopidogrel Bisulfate (Plavix) 75 mg PO DAILY [facility] Last Admin: 02/25/17 08:11 Dose: 75 mg Docusate Sodium (Colace) 100 mg PO BID PRN PRN Reason: Constipation Famotidine (Pepcid) 20 mg PO DAILY [facility] Last Admin: 02/25/17 08:11 Dose: 20 mg Furosemide (Lasix) 40 mg PO BID [facility] Last Admin: 02/24/17 08:37 Dose: 40 mg Hydralazine HCl (Apresoline) 10 mg IVPUSH Q6H PRN PRN Reason: Hypertension Heparin Sodium/Dextrose (Heparin 25,000 Units In D5w 500 Ml) 25,000 units in 500 mls @ 20 mls/hr IV TITRATE [facility] PRN Reason: Protocol Last Admin: 02/25/17 03:09 Dose: 20 mls/hr Levothyroxine Sodium (Levothyroxine) 75 mcg PO TuThSa@0730 [facility] Last Admin: 02/24/17 06:37 Dose: 75 mcg Levothyroxine Sodium (Synthroid) 100 mcg PO SuMoWeFr@0730 [facility] Last Admin: 02/25/17 06:57 Dose: 100 mcg Metoprolol Tartrate (Lopressor) 12.5 mg PO Q12HR [facility] Nitroglycerin (Nitrostat) 0.4 mg SL Q5M PRN PRN Reason: Chest Pain Nystatin (Nystop) 15 gm TOP BID PRN PRN Reason: Rash Ondansetron HCl (Zofran Odt) 4 mg PO Q6H PRN PRN Reason: nausea, able to take PO Ondansetron HCl (Zofran) 4 mg IV Q6H PRN PRN Reason: Nausea/Vomiting Polyethylene Glycol (Miralax) 17 gm PO DAILY PRN PRN Reason: Constipation Senna/Docusate Sodium (Senna Plus) 1 tab PO BID PRN PRN Reason: Constipation Sertraline HCl (Zoloft) 25 mg PO BEDTIME [facility] Last Admin: 02/24/17 21:49 Dose: 25 mg Simvastatin (Zocor) 5 mg PO BEDTIME [facility] Last Admin: 02/24/17 21:49 Dose: 5 mg Sodium Chloride (Saline Flush) 10 ml FLUSH ASDIRECTED PRN PRN Reason: Keep Vein Open Last Admin: 02/23/17 17:49 Dose: 10 ml Discontinued Medications Aspirin (Aspirin) 324 mg PO ONETIME ONE Stop: 02/23/17 21:09 Last Admin: 02/23/17 21:21 Dose: 324 mg Clopidogrel Bisulfate (Plavix) 300 mg PO ONETIME ONE Stop: 02/23/17 23:30 Last Admin: 02/24/17 00:06 Dose: 300 mg Famotidine (Pepcid) 20 mg PO BID [facility] Last Admin: 02/24/17 08:37 Dose: 20 mg Furosemide (Lasix) 20 mg IVPUSH NOW ONE Stop: 02/24/17 14:01 Last Admin: 02/24/17 13:15 Dose: 20 mg Heparin Sodium (Porcine) (Heparin Sodium) 5,000 units IVPUSH .BOLUS ONE Stop: 02/23/17 23:17 Last Admin: 02/24/17 00:09 Dose: 5,000 units Sodium Chloride (Normal Saline) 1,000 mls @ 250 mls/hr IV ASDIRECTED [facility] Last Admin: 02/24/17 00:02 Dose: 250 mls/hr Sodium Chloride (Sodium Chloride 0.45%) 1,000 mls @ 75 mls/hr IV ASDIRECTED [facility] Stop: 02/24/17 17:00 Last Admin: 02/24/17 11:25 Dose: 75 mls/hr Sodium Chloride (Sodium Chloride 0.45%) 1,000 mls @ 75 mls/hr IV ASDIRECTED [facility] Stop: 02/25/17 07:00 Ceftriaxone Sodium 2 gm/ (Sodium Chloride) 100 mls @ 200 mls/hr IV Q24H [facility] Last Admin: 02/24/17 21:49 Dose: 200 mls/hr Sodium Chloride (Sodium Chloride 0.45%) 1,000 mls @ 100 mls/hr IV ASDIRECTED [facility] Stop: 02/25/17 05:00 Sodium Chloride (Sodium Chloride 0.45%) 1,000 mls @ 999 mls/hr IV ASDIRECTED [facility] Sodium Chloride (Normal Saline) 250 mls @ 250 mls/hr IV ONETIME ONE Stop: 02/24/17 21:59 Last Admin: 02/24/17 21:48 Dose: 250 mls/hr Sodium Chloride (Normal Saline) 1,000 mls @ 100 mls/hr IV Q10H [facility] Stop: 02/25/17 05:00 Last Admin: 02/24/17 23:17 Dose: Not Given Ondansetron HCl (Zofran) 4 mg IVPUSH ONETIME ONE Stop: 02/23/17 21:30 Last Admin: 02/23/17 21:37 Dose: 4 mg - Exam Quality Assessment: DVT Prophylaxis General: Alert, Oriented, Cooperative, No Acute Distress HEENT: Pupils Equal, Pupils Reactive, EOMI Neck: Supple, Trachea Midline, No JVD Lungs: Normal Respiratory Effort, Decreased Breath Sounds Cardiovascular: Regular Rate, Regular Rhythm GI/Abdominal Exam: Normal Bowel Sounds, Soft, Non-Tender, No Organomegaly (Female) Exam: Deferred Back Exam: Normal Inspection Extremities: Normal Inspection Skin: Warm Neurological: No New Focal Deficit Psy/Mental Status: Alert, Normal Affect, Normal Mood - Problem List Review Problem List Initiated/Reviewed/Updated: Yes - My Orders Last 24 Hours: My Active Orders 02/25/17 14:49 CULTURE URINE [RM] Routine 02/25/17 21:00 Metoprolol Tartrate [Lopressor] 12.5 mg PO Q12HR cefTRIAXone [Rocephin] 2 gm IVPUSH Q24H - Plan Plan:: I/P: Acute: Non-STEMI -EKG in ED shows NSR at [address] elevation or depression. 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 -Pro-BNP 1809 -ASA given in ED -On home ASA -Plavix 300mg ordered -Heparin per protocol-->stop today -Pt. has been told by multiple providers and staff that she is having an TN. She seems surprised when I talk with her about it. She denies the fact that she is having TN after I explain it to her. AUTI-->Rocephin Renal insufficiency -Acute on chronic -Hx/o nephrectomy -Diurese as needed Chronic: Cataract HLD HTN COPD Nephrectomy Plain: Home meds Start cardiac meds Diurese as needed; avoid AL/ARB with CKD PCP/nephrology/cardiology at [place] CM/SW for discharge planning PT/OT DVT/PE Prophylaxis: GIOVANI Hose, Heparin and Plavix GI prophylaxis: Pepcid Other orders as indicated above Home meds as ordered Routine AM labs
[2017-02-25] MEDS: Metoprolol Tartrate 25 MG Tab PO SCH (20:16)
[2017-02-25] MEDS: Sertraline 25 MG Tab PO SCH (20:16)
[2017-02-25] MEDS: Simvastatin 10 MG Tab PO SCH (20:16)
[2017-02-25] MEDS: cefTRIAXone 2 GM Vial IVPUSH SCH (20:18)
[2017-02-26] MEDS: Clopidogrel 75 MG Tab PO SCH (08:09)
[2017-02-26] MEDS: Levothyroxine 75 MCG Tab PO SCH (08:09)
[2017-02-26] MEDS: Aspirin 81 MG Tab.EC PO SCH ×2 (08:09→20:09)
[2017-02-26] MEDS: Famotidine 20 MG Tab PO SCH (08:09)
[2017-02-26] MEDS: Metoprolol Tartrate 25 MG Tab PO SCH ×3 (08:10→20:21)
[2017-02-26] MEDS: Budesonide 0.5 MG/2 ML Neb Susp INH SCH ×2 (08:12→21:54)
[2017-02-26] MEDS: Furosemide 40 MG Tab PO SCH (08:24)
[2017-02-26] MEDS ORDERED: Furosemide 20 MG/2 ML VIAL IVPUSH ONE (11:15)
--- NOTE | 2017-02-26 15:45 | PCM.PN ---
- General Info Date of Service: 02/26/17 Functional Status: Reports: Tolerating Diet, Urinating - Review of Systems General: Reports: Weakness HEENT: Reports: No Symptoms Pulmonary: Reports: No Symptoms Cardiovascular: Reports: No Symptoms Gastrointestinal: Reports: No Symptoms Genitourinary: Reports: No Symptoms Musculoskeletal: Reports: No Symptoms Skin: Reports: No Symptoms Neurological: Reports: No Symptoms Psychiatric: Reports: No Symptoms - Patient Data Vitals - Most Recent: Last Vital Signs Temp 36.2 C 02/26/17 03:38 Pulse 70 02/26/17 12:06 Resp 16 02/26/17 12:06 BP 98/60 02/26/17 12:28 Pulse Ox 100 02/26/17 12:06 Weight - Most Recent: 102.829 kg I&O - Last 24 Hours: Intake & Output 02/26/17 02/26/17 02/26/17 06:59 14:59 22:59 Intake Total 500 0 Output Total 200 Balance 300 0 Lab Results Last 24 Hours: Laboratory Results - last 24 hr 02/26/17 02/26/17 02/26/17 Range/Units 06:15 06:15 06:15 WBC 7.62 (3.98-10.04) K/mm3 RBC 3.60 L (3.98-5.22) M/mm3 Hgb 11.4 (11.2-15.7) gm/L Hct 34.7 (34.1-44.9) % MCV 96.4 H (79.4-94.8) fl MCH 31.7 (25.6-32.2) pg MCHC 32.9 (32.2-35.5) g/dl RDW Std Deviation 43.6 (36.4-46.3) fL Plt Count 169 L (182-369) K/mm3 MPV 11.1 (9.4-12.3) fl Neut % (Auto) 67.7 (34.0-71.1) % Lymph % (Auto) 14.3 L (19.3-51.7) % [place] % (Auto) 14.2 H (4.7-12.5) % Eos % (Auto) 2.6 (0.7-5.8) Baso % (Auto) 0.5 (0.1-1.2) % Neut # (Auto) 5.16 (1.56-6.13) K/mm3 Lymph # (Auto) 1.09 L (1.18-3.74) K/mm3 [place] # (Auto) 1.08 H (0.24-0.36) K/mm3 Eos # (Auto) 0.20 (0.04-0.36) K/mm3 Baso # (Auto) 0.04 (0.01-0.08) K/mm3 Sodium 138 (136-145) mEq/L Potassium 4.4 (3.5-5.1) mEq/L Chloride 102 (98-107) mEq/L Carbon Dioxide 30 (21-32) mEq/L Anion Gap 10.4 (5-15) BUN 21 H (7-18) mg/dL Creatinine 1.3 H (0.55-1.02) mg/dL Est Cr Clr Drug Dosing 23.14 mL/min Estimated GFR (MDRD) 39 (>60) mL/min BUN/Creatinine Ratio 16.2 (14-18) Glucose 99 (83-115) mg/dL Calcium 9.0 (8.5-10.1) mg/dL Magnesium 2.2 (1.8-2.4) mg/dl Troponin I 0.042 (0.00-0.056) ng/mL C-Reactive Protein 4.4 H* (<1.0) mg/dL NT-Pro-B Natriuret Pep 3172 H (0-450) pg/mL Med Orders - Current: Current Medications Acetaminophen (Tylenol) 650 mg PO Q4H PRN PRN Reason: Pain (Mild 1-3)/fever Last Admin: 02/26/17 11:10 Dose: 650 mg Hydrocodone Bitart/Acetaminophen ([place] 325-5 Mg) 1 tab PO Q4H PRN PRN Reason: Pain (moderate 4-6) Last Admin: 02/24/17 21:50 Dose: 1 tab Albuterol/Ipratropium (Duoneb 3.0-0.5 Mg/3 Ml) 3 ml NEB Q4H PRN PRN Reason: Shortness Of Breath/wheezing Aspirin (Halfprin) 81 mg PO BID [facility] Last Admin: 02/26/17 08:09 Dose: 81 mg Bisacodyl (Dulcolax) 5 mg PO DAILY PRN PRN Reason: Constipation Budesonide (Pulmicort) 0.5 mg INH BID [facility] Last Admin: 02/26/17 08:12 Dose: 0.5 mg Ceftriaxone Sodium (Rocephin) 2 gm IVPUSH Q24H [facility] Last Admin: 02/25/17 20:18 Dose: 2 gm Clopidogrel Bisulfate (Plavix) 75 mg PO DAILY [facility] Last Admin: 02/26/17 08:09 Dose: 75 mg Docusate Sodium (Colace) 100 mg PO BID PRN PRN Reason: Constipation Famotidine (Pepcid) 20 mg PO DAILY [facility] Last Admin: 02/26/17 08:09 Dose: 20 mg Furosemide (Lasix) 40 mg PO BID [facility] Last Admin: 02/26/17 08:24 Dose: 40 mg Hydralazine HCl (Apresoline) 10 mg IVPUSH Q6H PRN PRN Reason: Hypertension Levothyroxine Sodium (Levothyroxine) 75 mcg PO TuThSa@0730 [facility] Last Admin: 02/26/17 08:09 Dose: 75 mcg Levothyroxine Sodium (Synthroid) 100 mcg PO SuMoWeFr@0730 [facility] Last Admin: 02/25/17 06:57 Dose: 100 mcg Metoprolol Tartrate (Lopressor) 25 mg PO Q12HR [facility] Nitroglycerin (Nitrostat) 0.4 mg SL Q5M PRN PRN Reason: Chest Pain Nystatin (Nystop) 15 gm TOP BID PRN PRN Reason: Rash Ondansetron HCl (Zofran Odt) 4 mg PO Q6H PRN PRN Reason: nausea, able to take PO Ondansetron HCl (Zofran) 4 mg IV Q6H PRN PRN Reason: Nausea/Vomiting Polyethylene Glycol (Miralax) 17 gm PO DAILY PRN PRN Reason: Constipation Senna/Docusate Sodium (Senna Plus) 1 tab PO BID PRN PRN Reason: Constipation Last Admin: 02/25/17 20:22 Dose: 1 tab Sertraline HCl (Zoloft) 25 mg PO BEDTIME [facility] Last Admin: 02/25/17 20:16 Dose: 25 mg Simvastatin (Zocor) 5 mg PO BEDTIME [facility] Last Admin: 02/25/17 20:16 Dose: 5 mg Sodium Chloride (Saline Flush) 10 ml FLUSH ASDIRECTED PRN PRN Reason: Keep Vein Open Last Admin: 02/23/17 17:49 Dose: 10 ml Discontinued Medications Aspirin (Aspirin) 324 mg PO ONETIME ONE Stop: 02/23/17 21:09 Last Admin: 02/23/17 21:21 Dose: 324 mg Clopidogrel Bisulfate (Plavix) 300 mg PO ONETIME ONE Stop: 02/23/17 23:30 Last Admin: 02/24/17 00:06 Dose: 300 mg Famotidine (Pepcid) 20 mg PO BID [facility] Last Admin: 02/24/17 08:37 Dose: 20 mg Furosemide (Lasix) 20 mg IVPUSH NOW ONE Stop: 02/24/17 14:01 Last Admin: 02/24/17 13:15 Dose: 20 mg Furosemide (Lasix) 20 mg IVPUSH ONETIME ONE Stop: 02/26/17 11:16 Last Admin: 02/26/17 11:40 Dose: 20 mg Heparin Sodium (Porcine) (Heparin Sodium) 5,000 units IVPUSH .BOLUS ONE Stop: 02/23/17 23:17 Last Admin: 02/24/17 00:09 Dose: 5,000 units Heparin Sodium/Dextrose (Heparin 25,000 Units In D5w 500 Ml) 25,000 units in 500 mls @ 20 mls/hr IV TITRATE [facility] PRN Reason: Protocol Last Admin: 02/25/17 03:09 Dose: 20 mls/hr Sodium Chloride (Normal Saline) 1,000 mls @ 250 mls/hr IV ASDIRECTED [facility] Last Admin: 02/24/17 00:02 Dose: 250 mls/hr Sodium Chloride (Sodium Chloride 0.45%) 1,000 mls @ 75 mls/hr IV ASDIRECTED [facility] Stop: 02/24/17 17:00 Last Admin: 02/24/17 11:25 Dose: 75 mls/hr Sodium Chloride (Sodium Chloride 0.45%) 1,000 mls @ 75 mls/hr IV ASDIRECTED [facility] Stop: 02/25/17 07:00 Ceftriaxone Sodium 2 gm/ (Sodium Chloride) 100 mls @ 200 mls/hr IV Q24H [facility] Last Admin: 02/24/17 21:49 Dose: 200 mls/hr Sodium Chloride (Sodium Chloride 0.45%) 1,000 mls @ 100 mls/hr IV ASDIRECTED [facility] Stop: 02/25/17 05:00 Sodium Chloride (Sodium Chloride 0.45%) 1,000 mls @ 999 mls/hr IV ASDIRECTED [facility] Sodium Chloride (Normal Saline) 250 mls @ 250 mls/hr IV ONETIME ONE Stop: 02/24/17 21:59 Last Admin: 02/24/17 21:48 Dose: 250 mls/hr Sodium Chloride (Normal Saline) 1,000 mls @ 100 mls/hr IV Q10H [facility] Stop: 02/25/17 05:00 Last Admin: 02/24/17 23:17 Dose: Not Given Metoprolol Tartrate (Lopressor) 12.5 mg PO Q12HR [facility] Last Admin: 02/26/17 08:10 Dose: 12.5 mg Ondansetron HCl (Zofran) 4 mg IVPUSH ONETIME ONE Stop: 02/23/17 21:30 Last Admin: 02/23/17 21:37 Dose: 4 mg - Exam Quality Assessment: DVT Prophylaxis General: Alert, Oriented, No Acute Distress HEENT: Pupils Equal, Pupils Reactive, EOMI Neck: Supple, Trachea Midline Lungs: Normal Respiratory Effort, Decreased Breath Sounds Cardiovascular: Regular Rate GI/Abdominal Exam: Normal Bowel Sounds, Soft, Non-Tender, No Organomegaly (Female) Exam: Deferred Back Exam: Normal Inspection Extremities: Normal Inspection, Pedal Edema Skin: Warm Neurological: No New Focal Deficit, Normal Speech Psy/Mental Status: Alert, Normal Affect, Normal Mood - Problem List Review Problem List Initiated/Reviewed/Updated: Yes - My Orders Last 24 Hours: My Active Orders 02/25/17 14:49 CULTURE URINE [] Routine 02/25/17 21:00 cefTRIAXone [Rocephin] 2 gm IVPUSH Q24H 02/26/17 11:05 Metoprolol Tartrate [Lopressor] 25 mg PO Q12HR 02/28/17 08:00 Echo Comp wo Cont [US] Routine - Plan Plan:: I/P: Acute: Non-STEMI -No acute changes; trigeminal PVCs. -Pro-BNP 1808 -ASA given in ED -On home ASA -Plavix 75 mg daily -Heparin per protocol-->completed today. AUTI-->Rocephin Renal insufficiency -Acute on chronic -Hx/o nephrectomy -Diurese as needed Chronic: Cataract HLD HTN COPD Nephrectomy Plain: Home meds Cardiac meds 2D echo ordered before DC Stop UFH drip, continue Plavix Diurese as needed; avoid AL/ARB with CKD PCP/nephrology/cardiology at [place] CM/SW for discharge planning PT/OT DVT/PE Prophylaxis: GIOVANI Hose, Heparin and Plavix GI prophylaxis: Pepcid LOS>96 hours for current treatment
[2017-02-26] MEDS: cefTRIAXone 2 GM Vial IVPUSH SCH (20:08)
[2017-02-26] MEDS: Sertraline 25 MG Tab PO SCH (20:09)
[2017-02-26] MEDS: Simvastatin 10 MG Tab PO SCH (20:09)
[2017-02-27] MEDS: Levothyroxine 100 MCG Tab PO SCH (06:45)
[2017-02-27] MEDS: Budesonide 0.5 MG/2 ML Neb Susp INH SCH ×2 (09:06→20:42)
[2017-02-27] MEDS: Aspirin 81 MG Tab.EC PO SCH ×2 (09:46→20:26)
[2017-02-27] MEDS: Metoprolol Tartrate 25 MG Tab PO SCH ×2 (09:47→20:26)
[2017-02-27] MEDS: Famotidine 20 MG Tab PO SCH (09:50)
[2017-02-27] MEDS: Clopidogrel 75 MG Tab PO SCH (09:50)
--- NOTE | 2017-02-27 12:00 | PCM.PN ---
- General Info Date of Service: 02/27/17 Functional Status: Reports: Pain Controlled, Tolerating Diet - Review of Systems General: Reports: Weakness HEENT: Reports: No Symptoms Pulmonary: Reports: No Symptoms Cardiovascular: Reports: No Symptoms Gastrointestinal: Reports: No Symptoms Genitourinary: Reports: No Symptoms Musculoskeletal: Reports: No Symptoms Skin: Reports: No Symptoms Neurological: Reports: No Symptoms Psychiatric: Reports: No Symptoms - Patient Data Vitals - Most Recent: Last Vital Signs Temp 36.2 C 02/27/17 07:41 Pulse 81 02/27/17 09:47 Resp 20 02/27/17 07:41 BP 117/60 02/27/17 09:47 Pulse Ox 98 02/27/17 09:06 Weight - Most Recent: 102.829 kg I&O - Last 24 Hours: Intake & Output 02/26/17 02/27/17 02/27/17 22:59 06:59 14:59 Intake Total 420 500 Output Total 300 600 Balance 120 -100 Lab Results Last 24 Hours: Laboratory Results - last 24 hr 02/27/17 02/27/17 02/27/17 Range/Units 06:30 06:30 06:31 WBC 7.90 (3.98-10.04) K/mm3 RBC 3.48 L (3.98-5.22) M/mm3 Hgb 10.9 L (11.2-15.7) gm/L Hct 33.8 L (34.1-44.9) % MCV 97.1 H (79.4-94.8) fl MCH 31.3 (25.6-32.2) pg MCHC 32.2 (32.2-35.5) g/dl RDW Std Deviation 43.3 (36.4-46.3) fL Plt Count 189 (182-369) K/mm3 MPV 11.0 (9.4-12.3) fl Neut % (Auto) 66.5 (34.0-71.1) % Lymph % (Auto) 15.8 L (19.3-51.7) % Barber % (Auto) 14.6 H (4.7-12.5) % Eos % (Auto) 2.2 (0.7-5.8) Baso % (Auto) 0.4 (0.1-1.2) % Neut # (Auto) 5.26 (1.56-6.13) K/mm3 Lymph # (Auto) 1.25 (1.18-3.74) K/mm3 Barber # (Auto) 1.15 H (0.24-0.36) K/mm3 Eos # (Auto) 0.17 (0.04-0.36) K/mm3 Baso # (Auto) 0.03 (0.01-0.08) K/mm3 Sodium 138 (136-145) mEq/L Potassium 4.2 (3.5-5.1) mEq/L Chloride 100 (98-107) mEq/L Carbon Dioxide 32 (21-32) mEq/L Anion Gap 10.2 (5-15) BUN 18 (7-18) mg/dL Creatinine 1.3 H (0.55-1.02) mg/dL Est Cr Clr Drug Dosing 23.14 mL/min Estimated GFR (MDRD) 39 (>60) mL/min BUN/Creatinine Ratio 13.8 L (14-18) Glucose 104 (83-115) mg/dL POC Glucose 107 (83-110) mg/dL Calcium 9.1 (8.5-10.1) mg/dL Magnesium 2.1 (1.8-2.4) mg/dl NT-Pro-B Natriuret Pep 2189 H (0-450) pg/mL Luc Results Last 24 Hours: Microbiology 02/26/17 07:30 Urine Culture - Preliminary Urine, Clean Catch MIXED LISA SUGGESTIVE OF CONTAMINATION. Med Orders - Current: Current Medications Acetaminophen (Tylenol) 650 mg PO Q4H PRN PRN Reason: Pain (Mild 1-3)/fever Last Admin: 02/26/17 11:10 Dose: 650 mg Hydrocodone Bitart/Acetaminophen ([place] 325-5 Mg) 1 tab PO Q4H PRN PRN Reason: Pain (moderate 4-6) Last Admin: 02/24/17 21:50 Dose: 1 tab Albuterol/Ipratropium (Duoneb 3.0-0.5 Mg/3 Ml) 3 ml NEB Q4H PRN PRN Reason: Shortness Of Breath/wheezing Aspirin (Halfprin) 81 mg PO BID RIAZ Last Admin: 02/27/17 09:46 Dose: 81 mg Bisacodyl (Dulcolax) 5 mg PO DAILY PRN PRN Reason: Constipation Budesonide (Pulmicort) 0.5 mg INH BID [facility] Last Admin: 02/27/17 09:06 Dose: 0.5 mg Ceftriaxone Sodium (Rocephin) 2 gm IVPUSH Q24H [facility] Last Admin: 02/26/17 20:08 Dose: 2 gm Clopidogrel Bisulfate (Plavix) 75 mg PO DAILY [facility] Last Admin: 02/27/17 09:50 Dose: 75 mg Docusate Sodium (Colace) 100 mg PO BID PRN PRN Reason: Constipation Famotidine (Pepcid) 20 mg PO DAILY [facility] Last Admin: 02/27/17 09:50 Dose: 20 mg Furosemide (Lasix) 40 mg PO BID [facility] Last Admin: 02/26/17 08:24 Dose: 40 mg Hydralazine HCl (Apresoline) 10 mg IVPUSH Q6H PRN PRN Reason: Hypertension Levothyroxine Sodium (Levothyroxine) 75 mcg PO TuThSa@0730 [facility] Last Admin: 02/26/17 08:09 Dose: 75 mcg Levothyroxine Sodium (Synthroid) 100 mcg PO SuMoWeFr@0730 [facility] Last Admin: 02/27/17 06:45 Dose: 100 mcg Metoprolol Tartrate (Lopressor) 25 mg PO Q12HR [facility] Last Admin: 02/27/17 09:47 Dose: 25 mg Nitroglycerin (Nitrostat) 0.4 mg SL Q5M PRN PRN Reason: Chest Pain Nystatin (Nystop) 15 gm TOP BID PRN PRN Reason: Rash Ondansetron HCl (Zofran Odt) 4 mg PO Q6H PRN PRN Reason: nausea, able to take PO Ondansetron HCl (Zofran) 4 mg IV Q6H PRN PRN Reason: Nausea/Vomiting Polyethylene Glycol (Miralax) 17 gm PO DAILY PRN PRN Reason: Constipation Senna/Docusate Sodium (Senna Plus) 1 tab PO BID PRN PRN Reason: Constipation Last Admin: 02/25/17 20:22 Dose: 1 tab Sertraline HCl (Zoloft) 25 mg PO BEDTIME [facility] Last Admin: 02/26/17 20:09 Dose: 25 mg Simvastatin (Zocor) 5 mg PO BEDTIME [facility] Last Admin: 02/26/17 20:09 Dose: 5 mg Sodium Chloride (Saline Flush) 10 ml FLUSH ASDIRECTED PRN PRN Reason: Keep Vein Open Last Admin: 02/23/17 17:49 Dose: 10 ml Discontinued Medications Aspirin (Aspirin) 324 mg PO ONETIME ONE Stop: 02/23/17 21:09 Last Admin: 02/23/17 21:21 Dose: 324 mg Clopidogrel Bisulfate (Plavix) 300 mg PO ONETIME ONE Stop: 02/23/17 23:30 Last Admin: 02/24/17 00:06 Dose: 300 mg Famotidine (Pepcid) 20 mg PO BID [facility] Last Admin: 02/24/17 08:37 Dose: 20 mg Furosemide (Lasix) 20 mg IVPUSH NOW ONE Stop: 02/24/17 14:01 Last Admin: 02/24/17 13:15 Dose: 20 mg Furosemide (Lasix) 20 mg IVPUSH ONETIME ONE Stop: 02/26/17 11:16 Last Admin: 02/26/17 11:40 Dose: 20 mg Heparin Sodium (Porcine) (Heparin Sodium) 5,000 units IVPUSH .BOLUS ONE Stop: 02/23/17 23:17 Last Admin: 02/24/17 00:09 Dose: 5,000 units Heparin Sodium/Dextrose (Heparin 25,000 Units In D5w 500 Ml) 25,000 units in 500 mls @ 20 mls/hr IV TITRATE [facility] PRN Reason: Protocol Last Admin: 02/25/17 03:09 Dose: 20 mls/hr Sodium Chloride (Normal Saline) 1,000 mls @ 250 mls/hr IV ASDIRECTED [facility] Last Admin: 02/24/17 00:02 Dose: 250 mls/hr Sodium Chloride (Sodium Chloride 0.45%) 1,000 mls @ 75 mls/hr IV ASDIRECTED [facility] Stop: 02/24/17 17:00 Last Admin: 02/24/17 11:25 Dose: 75 mls/hr Sodium Chloride (Sodium Chloride 0.45%) 1,000 mls @ 75 mls/hr IV ASDIRECTED [facility] Stop: 02/25/17 07:00 Ceftriaxone Sodium 2 gm/ (Sodium Chloride) 100 mls @ 200 mls/hr IV Q24H [facility] Last Admin: 02/24/17 21:49 Dose: 200 mls/hr Sodium Chloride (Sodium Chloride 0.45%) 1,000 mls @ 100 mls/hr IV ASDIRECTED RIAZ Stop: 02/25/17 05:00 Sodium Chloride (Sodium Chloride 0.45%) 1,000 mls @ 999 mls/hr IV ASDIRECTED [facility] Sodium Chloride (Normal Saline) 250 mls @ 250 mls/hr IV ONETIME ONE Stop: 02/24/17 21:59 Last Admin: 02/24/17 21:48 Dose: 250 mls/hr Sodium Chloride (Normal Saline) 1,000 mls @ 100 mls/hr IV Q10H [facility] Stop: 02/25/17 05:00 Last Admin: 02/24/17 23:17 Dose: Not Given Metoprolol Tartrate (Lopressor) 12.5 mg PO Q12HR [facility] Last Admin: 02/26/17 08:10 Dose: 12.5 mg Ondansetron HCl (Zofran) 4 mg IVPUSH ONETIME ONE Stop: 02/23/17 21:30 Last Admin: 02/23/17 21:37 Dose: 4 mg - Exam Quality Assessment: DVT Prophylaxis General: Alert, Oriented, Cooperative, No Acute Distress HEENT: Pupils Equal, Pupils Reactive, EOMI Neck: Supple, Trachea Midline Lungs: Normal Respiratory Effort Cardiovascular: Regular Rate, Regular Rhythm GI/Abdominal Exam: Normal Bowel Sounds, Soft, Non-Tender, No Organomegaly, No Distention (Female) Exam: Deferred Back Exam: Normal Inspection Extremities: Normal Inspection Skin: Warm Neurological: No New Focal Deficit Psy/Mental Status: Alert - Problem List Review Problem List Initiated/Reviewed/Updated: Yes - My Orders Last 24 Hours: My Active Orders 02/26/17 11:05 Metoprolol Tartrate [Lopressor] 25 mg PO Q12HR 02/28/17 08:00 Echo Comp wo Cont [US] Routine - Plan Plan:: I/P: Acute: Non-STEMI -No acute changes; trigeminal PVCs. -Pro-BNP 1808 -ASA given in ED -On home ASA -Plavix 75 mg daily -Heparin per protocol-->completed today. AUTI-->Rocephin Renal insufficiency -Acute on chronic -Hx/o nephrectomy -Diurese as needed Chronic: Cataract HLD HTN COPD Nephrectomy Plain: Home meds Cardiac meds 2D echo ordered before DC, 02/28/17 Continue Plavix AL/ARB with CKD, needs follow up with nephrology *PCP/nephrology/cardiology at DC CM/SW for discharge planning PT/OT DVT/PE Prophylaxis: GIOVANI Cesar, Heparin and Plavix GI prophylaxis: Pepcid LOS>96 hours for current treatment of ACS; [place] 02/28/17.
[2017-02-27] MEDS: Simvastatin 10 MG Tab PO SCH (20:26)
[2017-02-27] MEDS: Cephalexin 500 MG Cap PO SCH (20:26)
[2017-02-27] MEDS: Sertraline 25 MG Tab PO SCH (20:27)
[2017-02-28] MEDS: Levothyroxine 100 MCG Tab PO SCH (06:39)
[2017-02-28] MEDS: Famotidine 20 MG Tab PO SCH (08:29)
[2017-02-28] MEDS: Metoprolol Tartrate 25 MG Tab PO SCH (08:29)
[2017-02-28] MEDS: Aspirin 81 MG Tab.EC PO SCH (08:29)
[2017-02-28] MEDS: Clopidogrel 75 MG Tab PO SCH (08:29)
[2017-02-28] MEDS: Furosemide 40 MG Tab PO SCH (08:29)
[2017-02-28] MEDS: Cephalexin 500 MG Cap PO SCH (08:29)
[2017-02-28] MEDS: Budesonide 0.5 MG/2 ML Neb Susp INH SCH (08:37)
--- NOTE | 2017-02-28 09:45 | PCM.DCSUM1 ---
Discharge Summary - Hospital Course Free Text/Narrative:: Isabela Hsieh is a 86 yo female resident of [facility] in [place] , who presented to our ED today with with low blood pressure and syncopal episode. She reportedly passed out at 9 AM this morning. Her blood pressure was taken this afternoon and found to be 58/43. EMS was called to transport and it had improved to 106 systolic. She denies any complaints in the ED. Eyes fever, chills, cough, congestion, chest pain, dull pain, nausea, or vomiting. She does have some shortness of breath but reports this is normal for her and not any worse than usual. She is normally on 3 L via nasal cannula at home. She does have a history of COPD and CHF. In the ED she was afebrile with a temp of 97.3 Fahrenheit. Pulse is 94. Respirations elevated at 30. BP 91/65. Pulse ox 96%. An EKG is obtained showing a sinus rhythm at a rate of 97. A 1st degree HB is noted. She does have occasional runs of trigeminal PVCs. No ST elevation is noted. This is interpreted by the ED provider. Labs are obtained: She does have a white count at 11.40. Hemoglobin 12.9. Hematocrit 38.5. She is macrocytic. Platelets 219 ,000. Neutrophils are elevated at 75.5. Sodium was normal at 136. Potassium 4.6. Chloride low at 97. Anion gap 13.6. BUN elevated at 27. Creatinine 2.5. EGFR is 18. Glucose is high at 126. Calcium 9.7. Total bilirubin 0.8. Liver enzymes were good with AST at 32 ALT at 33 and alkaline phosphatase at 100. Troponin is elevated 0.276. ProBNP is high at 1809. Protein is good at 7.2 albumin is low at 2.9. Aspirin, zofran, and normal saline were given in the ED. She carries a history of: Cataracts, HLD, HTN, COPD, kidney cancer with one kidney removed. She was never a smoker. She was subsequently admitted to the medical floor/telemetry with NSTEMI. She is a DNR/DNI. She declined transfer for Cardiology consult/intervention and elects medical management only of NSTEMI. Her primary care provider is Dr. Marti with [facility] in [place]. Course of hospital stay was uneventful. She was started on heparin and Aspirin, metoprolol and plavix. Troponins were trended and decreased to 0.042. Renal function improved immensely with GFR initially of 18, improved to 39. BNP was elevated at highest of 3,876, also down trending. Cholesterol was excellent with total 136, LDL 85, HDL 47 and trig of 74, she will cont on current dose of statin. TSH normal at 1.441. A1C borderline at 6.4. She was treated for 4 days with Rocephin for AUTI, transitioned to keflex. UC was with mixed najma, no need for further abx on discharge. She will be discharged back to [place] today with PT/OT to continue. She is to f/up with PCP Dr. Marti within one week of discharge. - Discharge Data Discharge Date: 02/28/17 (admit date 02/23/17) Discharge Disposition: DC/Tfer to [facility] 03 Condition: Fair - Discharge Diagnosis/Problem(s) (1) Non-STEMI (non-ST elevated myocardial infarction) SNOMED Code(s): 540902224 ICD Code: I21.4 - NON-ST ELEVATION (NSTEMI) MYOCARDIAL INFARCTION Status: Acute Priority: High Current Visit: Yes (2) Renal insufficiency SNOMED Code(s): 096422769 ICD Code: N28.9 - DISORDER OF KIDNEY AND URETER, UNSPECIFIED Status: Chronic Priority: High Current Visit: Yes (3) HLD (hyperlipidemia) SNOMED Code(s): 40609923 ICD Code: E78.5 - HYPERLIPIDEMIA, UNSPECIFIED Status: Chronic Priority: Medium Current Visit: No Qualifiers: Hyperlipidemia type: mixed hyperlipidemia Qualified Code(s): E78.2 - Mixed hyperlipidemia (4) HTN (hypertension) SNOMED Code(s): 15222239 ICD Code: I10 - ESSENTIAL (PRIMARY) HYPERTENSION Status: Chronic Priority : Medium Current Visit: No Qualifiers: Hypertension type: unspecified Qualified Code(s): I10 - Essential (primary ) hypertension (5) History of nephrectomy, unilateral SNOMED Code(s): 33524798468975 ICD Code: Z90.5 - ACQUIRED ABSENCE OF KIDNEY Status: Chronic Priority: Low Current Visit: No - Patient Summary/Data Operative Procedure(s) Performed: None Complications: None Consults: Consultations 02/23/17 23:11 Consult to Case Management [CONS] Routine Consult to Electro Mechanical Engineer [CONS] Routine Consult to Spiritual Care [CONS] Routine OT Evaluation and Treatment [CONS] Routine PT Evaluation and Treatment [CONS] Routine Labs Pending at D/C: None Recommended Follow-up Testing/Procedures: Patient DC instructions: Physical & occupation therapy to evaluate & treat. Supplemental oxygen to keep sats greater than 90%. Daily weight. Keep a record for your doctor. Follow up with PCP, Dr. Marti within one week of discharge. Planned Operative Procedure(s) after DC: None Hospital Course: As above - Patient Instructions Diet: Heart Healthy Diet Activity: As Tolerated (PT/OT to continue) Driving: Do Not Drive Showering/Bathing: May Shower Notify Provider of: Fever, Increased Pain, Nausea and/or Vomiting - Discharge Plan Prescriptions/Med Rec: Metoprolol Tartrate [Lopressor] 25 mg PO Q12HR #60 tablet Clopidogrel [Plavix] 75 mg PO DAILY #30 tablet Docusate Sodium/Sennosides [Senna Plus] 1 tab PO BID PRN #30 tablet PRN Reason: Constipation Famotidine [Pepcid] 20 mg PO DAILY #30 tablet Nitroglycerin [IJP: Nitroglycerin] 0.4 mg SL Q5M PRN #30 tablet, sublingual PRN Reason: Chest Pain Home Medications: Home Meds Albuterol Sulfate [Proair Respiclick] 1 puff IH Q4H PRN 02/23/17 [History] Aspirin [Ecotrin] 81 mg PO BID 02/23/17 [History] Budesonide [Pulmicort] 0.5 mg IH BID 02/23/17 [History] Furosemide [Lasix] 40 mg PO BID 02/23/17 [History] Levothyroxine 75 mcg PO TUTHSA 02/23/17 [History] Levothyroxine [Synthroid] 100 mcg PO SUMOWEFR 02/23/17 [History] Nystatin [Nystatin Crm] 15 gm TOP BID PRN 02/23/17 [History] Sertraline [Zoloft] 25 mg PO BEDTIME 02/23/17 [History] Simvastatin [Zocor] 5 mg PO BEDTIME 02/23/17 [History] Clopidogrel [Plavix] 75 mg PO DAILY #30 tablet 02/28/17 [Rx] Docusate Sodium/Sennosides [Senna Plus] 1 tab PO BID PRN #30 tablet 02/28/17 [Rx ] Famotidine [Pepcid] 20 mg PO DAILY #30 tablet 02/28/17 [Rx] Metoprolol Tartrate [Lopressor] 25 mg PO Q12HR #60 tablet 02/28/17 [Rx] Nitroglycerin [IJP: Nitroglycerin] 0.4 mg SL Q5M PRN #30 tablet, sublingual [Rx] Patient Handouts: Non-ST Segment Elevation Heart Attack, Clopidogrel tablets, Urinary Tract Infection, Adult, Heart Attack, [id number], Heart Failure, Easy- to-Read, Aspirin, ASA oral tablets, Chronic Kidney Disease Forms: ED Department Discharge Referrals: Santana Marti MD [Physician] - - Discharge Summary/Plan Comment DC Time >30 min.: Yes (40 min) - General Info Date of Service: 02/28/17 Admission Dx/Problem (Free Text: NSTEMI Patient doing well this morning. No CP, SOB, palpitations. Up and ambulatory with PT/OT. Plans for DC back to [place] today and is anxious to return home. Functional Status: Reports: Pain Controlled, Tolerating Diet, Ambulating, Urinating. Denies: New Symptoms - Review of Systems General: Reports: No Symptoms HEENT: Reports: No Symptoms Pulmonary: Reports: No Symptoms. Denies: Shortness of Breath, Pleuritic Chest Pain, Cough Cardiovascular: Reports: No Symptoms. Denies: Chest Pain, Palpitations, Dyspnea on Exertion Gastrointestinal: Reports: No Symptoms. Denies: Abdominal Pain Genitourinary: Reports: No Symptoms Musculoskeletal: Reports: No Symptoms Neurological: Reports: No Symptoms - Patient Data Vitals - Most Recent: Last Vital Signs Temp 97.2 F 02/28/17 07:00 Pulse 87 02/28/17 08:29 Resp 20 02/28/17 07:00 BP 138/64 02/28/17 08:29 Pulse Ox 99 02/28/17 08:37 Weight - Most Recent: 226 lb 6.4 oz I&O - Last 24 hours: Intake & Output 02/27/17 02/28/17 02/28/17 22:59 06:59 14:59 Intake Total 660 100 Output Total 400 100 Balance 260 0 TRAVIS Results - Last 24 hrs: Microbiology 02/26/17 07:30 Urine Culture - Preliminary Urine, Clean Catch MIXED NAJMA SUGGESTIVE OF CONTAMINATION. Med Orders - Current: Current Medications Acetaminophen (Tylenol) 650 mg PO Q4H PRN PRN Reason: Pain (Mild 1-3)/fever Last Admin: 02/26/17 11:10 Dose: 650 mg Hydrocodone Bitart/Acetaminophen ([place] 325-5 Mg) 1 tab PO Q4H PRN PRN Reason: Pain (moderate 4-6) Last Admin: 02/24/17 21:50 Dose: 1 tab Albuterol/Ipratropium (Duoneb 3.0-0.5 Mg/3 Ml) 3 ml NEB Q4H PRN PRN Reason: Shortness Of Breath/wheezing Aspirin (Halfprin) 81 mg PO BID [facility] Last Admin: 02/28/17 08:29 Dose: 81 mg Bisacodyl (Dulcolax) 5 mg PO DAILY PRN PRN Reason: Constipation Budesonide (Pulmicort) 0.5 mg INH BID [facility] Last Admin: 02/28/17 08:37 Dose: 0.5 mg Cephalexin (Keflex) 500 mg PO Q12H [facility] Last Admin: 02/28/17 08:29 Dose: 500 mg Clopidogrel Bisulfate (Plavix) 75 mg PO DAILY [facility] Last Admin: 02/28/17 08:29 Dose: 75 mg Docusate Sodium (Colace) 100 mg PO BID PRN PRN Reason: Constipation Famotidine (Pepcid) 20 mg PO DAILY [facility] Last Admin: 02/28/17 08:29 Dose: 20 mg Furosemide (Lasix) 40 mg PO BID [facility] Last Admin: 02/28/17 08:29 Dose: 40 mg Hydralazine HCl (Apresoline) 10 mg IVPUSH Q6H PRN PRN Reason: Hypertension Levothyroxine Sodium (Levothyroxine) 75 mcg PO TuThSa@0730 [facility] Last Admin: 02/26/17 08:09 Dose: 75 mcg Levothyroxine Sodium (Synthroid) 100 mcg PO SuMoWeFr@0730 [facility] Last Admin: 02/28/17 06:39 Dose: 100 mcg Metoprolol Tartrate (Lopressor) 25 mg PO Q12HR [facility] Last Admin: 02/28/17 08:29 Dose: 25 mg Nitroglycerin (Nitrostat) 0.4 mg SL Q5M PRN PRN Reason: Chest Pain Nystatin (Nystop) 15 gm TOP BID PRN PRN Reason: Rash Ondansetron HCl (Zofran Odt) 4 mg PO Q6H PRN PRN Reason: nausea, able to take PO Ondansetron HCl (Zofran) 4 mg IV Q6H PRN PRN Reason: Nausea/Vomiting Polyethylene Glycol (Miralax) 17 gm PO DAILY PRN PRN Reason: Constipation Senna/Docusate Sodium (Senna Plus) 1 tab PO BID PRN PRN Reason: Constipation Last Admin: 02/25/17 20:22 Dose: 1 tab Sertraline HCl (Zoloft) 25 mg PO BEDTIME [facility] Last Admin: 02/27/17 20:27 Dose: 25 mg Simvastatin (Zocor) 5 mg PO BEDTIME [facility] Last Admin: 02/27/17 20:26 Dose: 5 mg Sodium Chloride (Saline Flush) 10 ml FLUSH ASDIRECTED PRN PRN Reason: Keep Vein Open Last Admin: 02/23/17 17:49 Dose: 10 ml Discontinued Medications Aspirin (Aspirin) 324 mg PO ONETIME ONE Stop: 02/23/17 21:09 Last Admin: 02/23/17 21:21 Dose: 324 mg Ceftriaxone Sodium (Rocephin) 2 gm IVPUSH Q24H [facility] Last Admin: 02/26/17 20:08 Dose: 2 gm Clopidogrel Bisulfate (Plavix) 300 mg PO ONETIME ONE Stop: 02/23/17 23:30 Last Admin: 02/24/17 00:06 Dose: 300 mg Famotidine (Pepcid) 20 mg PO BID [facility] Last Admin: 02/24/17 08:37 Dose: 20 mg Furosemide (Lasix) 20 mg IVPUSH NOW ONE Stop: 02/24/17 14:01 Last Admin: 02/24/17 13:15 Dose: 20 mg Furosemide (Lasix) 20 mg IVPUSH ONETIME ONE Stop: 02/26/17 11:16 Last Admin: 02/26/17 11:40 Dose: 20 mg Heparin Sodium (Porcine) (Heparin Sodium) 5,000 units IVPUSH .BOLUS ONE Stop: 02/23/17 23:17 Last Admin: 02/24/17 00:09 Dose: 5,000 units Heparin Sodium/Dextrose (Heparin 25,000 Units In D5w 500 Ml) 25,000 units in 500 mls @ 20 mls/hr IV TITRATE RIAZ PRN Reason: Protocol Last Admin: 02/25/17 03:09 Dose: 20 mls/hr Sodium Chloride (Normal Saline) 1,000 mls @ 250 mls/hr IV ASDIRECTED [facility] Last Admin: 02/24/17 00:02 Dose: 250 mls/hr Sodium Chloride (Sodium Chloride 0.45%) 1,000 mls @ 75 mls/hr IV ASDIRECTED RIAZ Stop: 02/24/17 17:00 Last Admin: 02/24/17 11:25 Dose: 75 mls/hr Sodium Chloride (Sodium Chloride 0.45%) 1,000 mls @ 75 mls/hr IV ASDIRECTED [facility] Stop: 02/25/17 07:00 Ceftriaxone Sodium 2 gm/ (Sodium Chloride) 100 mls @ 200 mls/hr IV Q24H [facility] Last Admin: 02/24/17 21:49 Dose: 200 mls/hr Sodium Chloride (Sodium Chloride 0.45%) 1,000 mls @ 100 mls/hr IV ASDIRECTED [facility] Stop: 02/25/17 05:00 Sodium Chloride (Sodium Chloride 0.45%) 1,000 mls @ 999 mls/hr IV ASDIRECTED [facility] Sodium Chloride (Normal Saline) 250 mls @ 250 mls/hr IV ONETIME ONE Stop: 02/24/17 21:59 Last Admin: 02/24/17 21:48 Dose: 250 mls/hr Sodium Chloride (Normal Saline) 1,000 mls @ 100 mls/hr IV Q10H [facility] Stop: 02/25/17 05:00 Last Admin: 02/24/17 23:17 Dose: Not Given Metoprolol Tartrate (Lopressor) 12.5 mg PO Q12HR [facility] Last Admin: 02/26/17 08:10 Dose: 12.5 mg Ondansetron HCl (Zofran) 4 mg IVPUSH ONETIME ONE Stop: 02/23/17 21:30 Last Admin: 02/23/17 21:37 Dose: 4 mg - Exam Quality Assessment: Reports: DVT Prophylaxis General: Reports: Alert, Cooperative, No Acute Distress HEENT: Reports: Pupils Equal, EOMI, Mucous Membr. Moist/[place] Neck: Reports: Supple Lungs: Reports: Clear to Auscultation, Normal Respiratory Effort, Decreased Breath Sounds (bases) Cardiovascular: Reports: Regular Rate, Regular Rhythm GI/Abdominal Exam: Normal Bowel Sounds, Soft, Non-Tender (Female) Exam: Deferred Rectal (Female) Exam: Deferred Extremities: Normal Inspection, No Pedal Edema, Normal Capillary Refill Neurological: Reports: No New Focal Deficit Psy/Mental Status: Reports: Alert, Normal Affect, Normal Mood *Q Meaningful Use (DIS) - VTE *Q VTE Criteria *Q: - Stroke *Q Stroke Criteria *Q: - AMI *Q AMI Criteria *Q:
--- NOTE | 2017-02-28 11:27 | CR ---
Chest: Portable view of the chest was obtained. Comparison: Prior chest x-ray of 01/19/17. Heart size and mediastinum are normal. Lungs are clear. Bony structures are grossly intact. Impression: 1. Nothing acute is identified on portable chest x-ray. Diagnostic code #1
[2017-02-28 11:44] VITALS: BP 113/87
== END 2017-02-28 15:30 | DRG 281 ==
LOC: JD.ED 17:14 → UNDOADMIN 22:08 → JD.MS 22:08
PROVIDERS: ADMIT Internal Medicine Cardiovascular Disease; ATTEND Internal Medicine Cardiovascular Disease
DX: I21.4 Non-ST elevation (NSTEMI) myocardial infarction (principal); R55 Syncope and collapse; N28.9 Disorder of kidney and ureter, unspecified; E78.00 Pure hypercholesterolemia, unspecified; I13.0 Hypertensive heart and chronic kidney disease with heart failure and stage 1 through stage 4 chronic kidney disease, or unspecified chronic kidney disease; N18.4 Chronic kidney disease, stage 4 (severe); I11.0 Hypertensive heart disease with heart failure; N17.9 Acute kidney failure, unspecified; N39.0 Urinary tract infection, site not specified; E78.5 Hyperlipidemia, unspecified; Z90.5 Acquired absence of kidney; I50.9 Heart failure, unspecified; J44.9 Chronic obstructive pulmonary disease, unspecified; Z85.528 Personal history of other malignant neoplasm of kidney; Z79.82 Long term (current) use of aspirin; Z79.899 Other long term (current) drug therapy; Z66 Do not resuscitate
CPT/HCPCS: 36415; 71010; 80053; 83880; 84484; 85025; 85610; 85730; 93005; 96374; 99285; A9270; J2405; J7050; 80048; 80061; 81001; 82962; 83036; 83735; 84443; 86140; 87086; 87641; 93010; 93306; 94640; 94760; 94761; 97110-GO; 97110-GP; 97162-GP; 97166-GO; 97530-GO; 97530-GP; 99284; J0696; J1644; J7030; J7040

== ENCOUNTER 2017-03-02 21:39 | Emergency (ER) | payer MEDICARE, OTHER, MEDICAID ==
[2017-03-02 21:50] VITALS: BP 109/53
[2017-03-02] MEDS ORDERED: Oxymetazoline 0.05% Nasal Spray 15 ML Bottle ONE (22:09)
--- NOTE | 2017-03-03 00:08 | EDM.PDOC ---
ED HPI GENERAL MEDICAL PROBLEM - General Chief Complaint: ENT Problem Stated Complaint: [facility] Time Seen by Provider: 03/02/17 21:40 - History of Present Illness INITIAL COMMENTS - FREE TEXT/NARRATIVE: 86-year-old female presents emergency room brought in by [facility] from the [facility] in [place] with a bloody nose.. The patient is taking Plavix. She developed a bloody nose around 6:00 this evening. She is unaware of any precipitating event. She denies any pain. Patient is not having any chest pain chest pressure breathing difficulties or shortness of breath she has a history of anemia. Patient was recently admitted here to the hospital. The patient thinks she's been bleeding out of the right side of her nose and is wondering if she has blood behind her dentures. Patient denies any recent fevers chills breathing difficulties cough congestion. - Related Data Allergies Allergy/AdvReac Type Severity Reaction Status Date / Time No Known Allergies Allergy Verified 03/02/17 21:46 Home Meds: Home Meds Albuterol Sulfate [Proair Respiclick] 1 puff IH Q4H PRN 02/23/17 [History] Aspirin [Ecotrin] 81 mg PO BID 02/23/17 [History] Budesonide [Pulmicort] 0.5 mg IH BID 02/23/17 [History] Furosemide [Lasix] 40 mg PO BID 02/23/17 [History] Levothyroxine 75 mcg PO TUTHSA 02/23/17 [History] Levothyroxine [Synthroid] 100 mcg PO SUMOWEFR 02/23/17 [History] Nystatin [Nystatin Crm] 15 gm TOP BID PRN 02/23/17 [History] Sertraline [Zoloft] 25 mg PO BEDTIME 02/23/17 [History] Simvastatin [Zocor] 5 mg PO BEDTIME 02/23/17 [History] Clopidogrel [Plavix] 75 mg PO DAILY #30 tablet 02/28/17 [Rx] Docusate Sodium/Sennosides [Senna Plus] 1 tab PO BID PRN #30 tablet 02/28/17 [Rx ] Famotidine [Pepcid] 20 mg PO DAILY #30 tablet 02/28/17 [Rx] Metoprolol Tartrate [Lopressor] 25 mg PO Q12HR #60 tablet 02/28/17 [Rx] Nitroglycerin [IJP: Nitroglycerin] 0.4 mg SL Q5M PRN #30 tablet, sublingual [Rx] Past Medical History HEENT History: Reports: Cataract Cardiovascular History: Reports: High Cholesterol, Hypertension Respiratory History: Reports: COPD Other Genitourinary History: Kidney cancer. 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: Musculoskeletal History: Reports: None Endocrine/Metabolic History: Reports: Hypothyroidism Oncologic (Cancer) History: Reports: Other (See Below) Other Oncologic History: kidney - Infectious Disease History Infectious Disease History: Reports: Measles - Past Surgical History HEENT Surgical History: Reports: Cataract Surgery Endocrine Surgical History: Reports: None Musculoskeletal Surgical History: Reports: None Social & Family History - Family History Family Medical History: Noncontributory - Tobacco Use Smoking Status *Q: Former Smoker Used Tobacco, but Quit: No Second Hand Smoke Exposure: Yes - Caffeine Use Caffeine Use: Reports: None Caffeine Use Comment: Patient states she drinks 3 cups decaf coffee per day - Recreational Drug Use Recreational Drug Use: No ED ROS ENT - Review of Systems Review Of Systems: See Below Constitutional: Reports: No Symptoms HEENT: Reports: Nosebleed. Denies: Ear Pain, Rhinitis, Vision Change Respiratory: Reports: No Symptoms Cardiovascular: Reports: No Symptoms GI/Abdominal: Reports: No Symptoms Neurological: Reports: No Symptoms ED EXAM, ENT - Physical Exam Exam: See Below Exam Limited By: No Limitations General Appearance: Alert, No Apparent Distress Nose: Other (Upon arrival I had the patient blow her nose completely clear of clots she was not actively bleeding I cannot identify the site in the right naris where it was bleeding. The patient did develop more bleeding and several minutes later I had her clear nose again and still could not identify where the blood was coming from) Mouth/Throat: Other (Since dentures were removed no blood behind them. She had some old blood in the back of her pharynx this was irrigated away with have her gargle swallowing water we watch this area for any evidence of recurrent bleeding.) Head: Atraumatic, Normocephalic Neck: Normal Inspection, Supple, Non-Tender, Full Range of Motion. No: Lymphadenopathy (L), Lymphadenopathy (R) Respiratory/Chest: No Respiratory Distress, Lungs Clear, Normal Breath Sounds Cardiovascular: Regular Rate, Rhythm, No Edema, No Murmur GI/Abdominal: Normal Bowel Sounds, Soft, Non-Tender ED ENT PROCEDURES - Epistaxis Procedure Indication: Epistaxis Recent anticoagulants/antiplatlets: Yes Uncontrolled HTN: No Site of bleeding: Right Nare Clearing of clots: Patient Blew Nose Anterior Packing: Inflatable Nasal Tampon (Rapid Rhino 5.52 mL of air initially 3 mL placed and then 1 mL removed for comfort this helped significantly) Complications: No Course - Vital Signs Last Recorded V/S: Last Vital Signs Temp 35.9 C 03/02/17 21:46 Pulse 76 03/02/17 21:46 Resp 19 03/02/17 21:46 BP 109/53 L 03/02/17 21:46 Pulse Ox 90 L 03/02/17 21:46 - Orders/Labs/Meds Labs: Laboratory Tests 03/02/17 03/02/17 Range/Units 22:30 22:30 WBC 8.30 (3.98-10.04) K/mm3 RBC 3.68 L (3.98-5.22) M/mm3 Hgb 11.7 (11.2-15.7) gm/L Hct 35.6 (34.1-44.9) % MCV 96.7 H (79.4-94.8) fl MCH 31.8 (25.6-32.2) pg MCHC 32.9 (32.2-35.5) g/dl RDW Std Deviation 44.0 (36.4-46.3) fL Plt Count 200 (182-369) K/mm3 MPV 11.1 (9.4-12.3) fl Neutrophils % (Manual) 69 H (40-60) % Band Neutrophils % 0 (0-10) % Lymphocytes % (Manual) 23 (20-40) % Atypical Lymphs % 0 % Monocytes % (Manual) 6 (2-10) % Eosinophils % (Manual) 0 L (0.7-5.8) % Basophils % (Manual) 1 (0.1-1.2) Promyelocytes % 1 Platelet Estimate Adequate Plt Morphology Comment Normal Anisocytosis 1+ slight Stomatocytes 1+ slight RBC Morph Comment Not Reportable PT 10.3 (8.0-13.0) SECONDS INR 0.95 APTT 24 (22-36) SECONDS Meds: Medications Discontinued Medications Generic Name Dose Route Start Last Admin Trade Name Freq PRN Reason Stop Dose Admin Oxymetazoline HCl Confirm 03/02/17 22:09 Afrin Original 0.05% Nasal [place] Administered 03/02/17 22:10 Dose 15 ml .ROUTE .STK-MED ONE Departure - Departure Time of Disposition: 00:09 Disposition: Home, Self-Care 01 Clinical Impression: Epistaxis - Discharge Information Referrals: PCP,None [Primary Care Provider] - Additional Instructions: Return to the emergency room with any questions problems or worsening symptoms. Follow up at the Hospital clinic on Tuesday to have the packing removed. [id number] packing in place it will have a tendency to ooze bloody watery discharge. This will get better after 12-24 hours. Continue your routine medications as before.
== END 2017-03-03 00:40 | disposition home or self-care (01) ==
LOC: JD.ED 21:39
DX: R04.0 Epistaxis (principal); I10 Essential (primary) hypertension; E78.00 Pure hypercholesterolemia, unspecified; J44.9 Chronic obstructive pulmonary disease, unspecified; E03.9 Hypothyroidism, unspecified; Z87.891 Personal history of nicotine dependence; Z79.02 Long term (current) use of antithrombotics/antiplatelets; Z79.899 Other long term (current) drug therapy; Z79.82 Long term (current) use of aspirin
CPT/HCPCS: 30901; 30903; 36415; 85025; 85610; 85730; 99283-25; 99285-25

== ENCOUNTER 2019-12-24 10:01 | Emergency (ER) | payer MEDICARE, MEDICAID, OTHER ==
[2019-12-24] MEDS ORDERED: Acetaminophen 325 MG Tab PO STA (10:22)
[2019-12-24] MEDS ORDERED: Albuterol/Ipratropium 3.0-0.5 MG/3 ML Neb Soln NEB PRN (10:25)
[2019-12-24] MEDS ORDERED: Furosemide 40 MG/4 ML VIAL IVPUSH ONE (10:26)
--- NOTE | 2019-12-24 10:26 | EDM.PDOC ---
ED HPI GENERAL MEDICAL PROBLEM - General Chief Complaint: Respiratory Problem Stated Complaint: [facility] Time Seen by Provider: 12/24/19 10:11 Source of Information: Reports: Patient, EMS History Limitations: Reports: No Limitations, Respiratory Distress (She is in moderate respiratory distress.) - History of Present Illness INITIAL COMMENTS - FREE TEXT/NARRATIVE: 89-year-old female presents to the ED per [place] [facility]. She resides at [facility]. Did have a fever this morning and low O2 sats of 85%. Patient used to be on a nebulizer but it was discontinued 3 weeks ago at goal due to concerns for aerosolization of COVID-19 illness. As far she knows nobody changed any of her medications. She states things came on rather quickly overnight with increased shortness of breath and audible wheezing. She did not eat any breakfast. 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 She has a history of congestive heart failure. Exposure to COVID-19 from other residents in the shelter that she lives in. Onset: Sudden (His symptoms of dyspnea and audible wheezing overnight.) Onset Date: 12/24/19 Duration: Hour(s):, Getting Worse Location: Reports: Chest (Shortness of breath with audible wheezing and dyspnea.), Other (Development of low-grade fever.) Quality: Reports: Other (Short of breath with O2 sats of 85% on room air) Severity: Moderate Improves with: Reports: Rest Worsens with: Reports: Movement Context: Reports: Other (Jennifer is occurrence.). Denies: Activity, Exercise, Lifting, Sick Contact, Trauma Associated Symptoms: Reports: Cough, cough w sputum, Fever/Chills, Loss of Appetite, Malaise, Shortness of Breath, Weakness, Other. Denies: Confusion, Chest Pain, Diaphoresis, Headaches, Nausea/Vomiting, Rash, Seizure Treatments LENS EDGER: Reports: Other (see below) (Apparently she took her normal medicines this morning.) - Related Data Allergies Allergy/AdvReac Type Severity Reaction Status Date / Time No Known Allergies Allergy Verified 12/24/19 10:37 Home Meds: Home Meds Albuterol Sulfate [Proair Respiclick] 1 puff IH Q4H PRN 02/23/17 [History] Furosemide [Lasix] 40 mg PO DAILY 02/23/17 [History] Levothyroxine [Synthroid] 112 mcg PO DAILY 02/23/17 [History] Sertraline [Zoloft] 25 mg PO BEDTIME 02/23/17 [History] Simvastatin [Zocor] 5 mg PO BEDTIME 02/23/17 [History] Clopidogrel [Plavix] 75 mg PO DAILY #30 tablet 02/28/17 [Rx] Famotidine [Pepcid] 20 mg PO DAILY #30 tablet 02/28/17 [Rx] Nitroglycerin [IJP: Nitroglycerin] 0.4 mg SL Q5M PRN #30 tablet, sublingual 02/28/17 [Rx] Albuterol Sulfate [Proair Respiclick] 1 puff INH BID 12/24/19 [History] Bacitracin [Bacitracin Oint] 1 applic TOP DAILY 12/24/19 [History] Docusate Sodium/Sennosides [Senna Plus] 1 tab PO BID PRN 12/24/19 [History] Furosemide [Lasix] 60 mg PO DAILY 12/24/19 [History] Metoprolol Succinate [Toprol XL 50mg] 50 mg PO DAILY 12/24/19 [History] dexAMETHasone [Dexamethasone] 3 mg PO BID #20 tablet 12/24/19 [Rx] Past Medical History HEENT History: Reports: Cataract Cardiovascular History: Reports: High Cholesterol, Hypertension Respiratory History: Reports: COPD Other Genitourinary History: Kidney cancer. Kidney was removed on the left side. [employer] History: Reports: Musculoskeletal History: Reports: None Endocrine/Metabolic History: Reports: Hypothyroidism Oncologic (Cancer) History: Reports: Other (See Below) Other Oncologic History: kidney - Infectious Disease History Infectious Disease History: Reports: Measles - Past Surgical History HEENT Surgical History: Reports: Cataract Surgery Endocrine Surgical History: Reports: None Musculoskeletal Surgical History: Reports: None Social & Family History - Family History Family Medical History: Noncontributory - Caffeine Use Caffeine Use: Reports: None Caffeine Use Comment: Patient states she drinks 3 cups decaf coffee per day - Living Situation & Occupation Living situation: Reports: , Extended Care Facility (Currently residing [place] [facility] of [facility] in [place], [place]) Occupation: Retired ED ROS GENERAL - Review of Systems Review Of Systems: See Below Constitutional: Reports: Fever, Malaise, Weakness, Fatigue, Decreased Appetite (Not eat any breakfast today.). Denies: Chills (Clinically she does have a low- grade fever.) HEENT: Reports: Glasses, Other (Has some mild macular degeneration.) Respiratory: Reports: Shortness of Breath, Wheezing, Cough. Denies: Pleuritic Chest Pain, Sputum, Hemoptysis Cardiovascular: Reports: Blood Pressure Problem, Dyspnea on Exertion, Edema. Denies: Claudication, Lightheadedness, Orthopnea Endocrine: Reports: Fatigue (Sometimes in lower extremities.) GI/Abdominal: Reports: No Symptoms. Denies: Black Stool, Decreased Appetite, Nausea, Vomiting : Reports: Frequency, Incontinence (Both stress and urge components). Denies: Dysuria Musculoskeletal: Reports: Neck Pain, Shoulder Pain, Joint Pain (Knees hips lower back.) Skin: Reports: Bruising (This is easily as she is on Plavix.) Neurological: Reports: No Symptoms, Dizziness, Difficulty Walking (With the aid of a gait aid.), Weakness. Denies: Confusion, Headache (Occasional dizziness/vertigo symptoms.), Syncope Psychiatric: Reports: No Symptoms Hematologic/Lymphatic: Reports: No Symptoms Immunologic: Reports: No Symptoms ED EXAM, GENERAL - Physical Exam Exam: See Below Exam Limited By: Respiratory Distress (Moderate respiratory distress with audible wheezing.Temperature is 37.1 although she feels warmer than this. Heart rate was 82 respiratory is 31 with O2 sats of 87% on room air. Placed on 3 L by nasal cannula. BP 129/65.) General Appearance: Alert, WD/WN, Moderate Distress Eye Exam: Bilateral Eye: Normal Inspection (No scleral icterus or blepharal pallor.), PERRL Throat/Mouth: Other (Tongue is dry and coated. No signs of infection in the oropharynx.) Head: Atraumatic, Normocephalic, Other (No overt signs of any head or facial trauma.) Neck: Normal Inspection, Limited Range of Motion, Tender Lateral. No: Lymphadenopathy (L), Lymphadenopathy (R), Tender Midline Respiratory/Chest: Respiratory Distress (Moderate tachypnea with audible wheezing.), Decreased Breath Sounds, Rhonchi, Wheezing (Rhonchi and expiratory wheezing throughout all lung jo. Expiratory wheezing throughout all lung jo.) Cardiovascular: Regular Rate, Rhythm, No Gallop, No Murmur, No Rub. No: Normal Peripheral Pulses, No Edema Peripheral Pulses: 1+: Posterior Tibial (L), Posterior Tibial (R), Dorsalis Pedis (L), Dorsalis Pedis (R), 2+: Carotid (L), Carotid (R) GI/Abdominal: Normal Bowel Sounds, Soft, Non-Tender, No Organomegaly, No Abnormal Bruit, Distended (Mildly distended intubated to percussion in the epigastrium compatible with aerophagia.), Other (Abdominal girth limits ability to palpate solid organs.) Extremities: Pedal Edema (2+ pitting edema both lower extremities. 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 No: Normal Reflexes Psychiatric: Other (She is in moderate respiratory distress.) Skin Exam: Warm, Dry, Intact, Normal Color, No Rash EKG INTERPRETATION EKG Date: 12/24/19 Time: 10:52 Rhythm: NSR Rate (Beats/Min): 78 Carter: Normal P-Wave: Present (With first-degree AV block) QRS: Other (Early R wave transition consider right ventricular appear to be pattern versus septal hypertrophy.) ST-T: Depressed (Mild ST segment depression V4 to V6.) EKG Interpretation Comments: Abnormal ECG Course - Vital Signs Last Recorded V/S: Last Vital Signs Temp 37.1 C 12/24/19 10:13 Pulse 82 12/24/19 10:13 Resp 31 H 12/24/19 10:13 BP 129/65 12/24/19 10:13 Pulse Ox 87 L 12/24/19 10:13 - Orders/Labs/Meds Orders: Active Orders 24 hr Category Date Time Status EKG Documentation Completion [RC] STAT Care 12/24/19 10:22 Active Oxygen Therapy [RC] ASDIRECTED Care 12/24/19 10:23 Active RT Aerosol Therapy [RC] ASDIRECTED Care 12/24/19 10:25 Active CULTURE BLOOD [BC] Stat Lab 12/24/19 11:25 Received CULTURE BLOOD [BC] Stat Lab 12/24/19 11:35 Received Albuterol/Ipratropium [DuoNeb 3.0-0.5 MG/3 ML] Med 12/24/19 10:25 Active 3 ml NEB Q4H PRN Dextrose 5%-0.9% NaCl [Dextrose 5%-Normal Saline] 1,000 Med 12/24/19 10:30 Active ml IV ASDIRECTED Nitroglycerin/D5W [Nitroglycerin 25 MG/D5W 250 ML] Med 12/24/19 11:45 Active 25 mg in 250 ml IV TITRATE Blood Culture x2 Reflex Set [OM.PC] Stat Oth 12/24/19 10:24 Ordered Medication Orders Albuterol/Ipratropium (Duoneb 3.0-0.5 Mg/3 Ml) 3 ml NEB Q4H PRN PRN Reason: Shortness Of Breath/wheezing Dextrose/Sodium Chloride (Dextrose 5%-Normal Saline) 1,000 mls @ 75 mls/hr IV ASDIRECTED RIAZ Last Admin: 12/24/19 11:07 Dose: 75 mls/hr Documented by: ZARIA Nitroglycerin/Dextrose (Nitroglycerin 25 Mg/D5w 250 Ml) 25 mg in 250 mls @ 6 mls/hr IV TITRATE RIAZ; Protocol Last Admin: 12/24/19 12:09 Dose: 10 mcg/min, 6 mls/hr Documented by: ZARIA Labs: Laboratory Tests 12/24/19 12/24/19 12/24/19 Range/Units 11:05 11:10 11:25 WBC 5.25 (3.98-10.04) K/mm3 RBC 4.09 (3.98-5.22) M/mm3 Hgb 12.5 (11.2-15.7) gm/dl Hct 41.1 (34.1-44.9) % MCV 100.5 H D (79.4-94.8) fl MCH 30.6 (25.6-32.2) pg MCHC 30.4 L (32.2-35.5) g/dl RDW Std Deviation 45.7 (36.4-46.3) fL Plt Count 194 (182-369) K/mm3 MPV 11.4 (9.4-12.3) fl Neutrophils % (Manual) 88 H (40-60) % Band Neutrophils % 0 (0-10) % Lymphocytes % (Manual) 8 L (20-40) % Atypical Lymphs % 0 % Monocytes % (Manual) 4 (2-10) % Eosinophils % (Manual) 0 L (0.7-5.8) % Basophils % (Manual) 0 L (0.1-1.2) Platelet Estimate Adequate RBC Morph Comment Normal PT (9.7-11.7) SECONDS INR APTT (22-31) SECONDS D-Dimer, Quantitative (0.19-0.50) mg/L Sodium (136-145) mEq/L Potassium (3.5-5.1) mEq/L Chloride (98-107) mEq/L Carbon Dioxide (21-32) mEq/L Anion Gap (5-15) BUN (7-18) mg/dL Creatinine (0.55-1.02) mg/dL Est Cr Clr Drug Dosing mL/min Estimated GFR (MDRD) (>60) mL/min BUN/Creatinine Ratio (14-18) Glucose (83-115) mg/dL Lactic Acid (0.4-2.0) mmol/L Calcium (8.5-10.1) mg/dL Magnesium (1.8-2.4) mg/dl Ferritin (8-252) ng/ml Total Bilirubin (0.2-1.0) mg/dL AST (15-37) U/L ALT (14-59) U/L Alkaline Phosphatase (46-116) U/L Lactate Dehydrogenase (81-234) U/L CK-MB (CK-2) (0-3.6) ng/ml Troponin I (0.00-0.056) ng/mL C-Reactive Protein (<1.0) mg/dL NT-Pro-B Natriuret Pep (0-450) pg/mL Total Protein (6.4-8.2) g/dl Albumin (3.4-5.0) g/dl Globulin gm/dL Albumin/Globulin Ratio (1-2) Urine Color Light yellow (Yellow) Urine Appearance Clear (Clear) Urine pH 7.5 (5.0-8.0) Ur Specific [place] 1.025 (1.005-1.030) Urine Protein Negative (Negative) Urine Glucose (UA) Negative (Negative) Urine Ketones Negative (Negative) Urine Occult Blood Negative (Negative) Urine Nitrite Negative (Negative) Urine Bilirubin Negative (Negative) Urine Urobilinogen 0.2 (0.2-1.0) Ur Leukocyte Esterase Trace H (Negative) Urine RBC 0-5 (0-5) /hpf Urine WBC 0-5 (0-5) /hpf Ur Epithelial Cells 0-5 (0-5) /hpf Urine Bacteria Few (FEW) /hpf Urine Mucus Not seen (FEW) /hpf SARS-CoV-2 RNA (IRA) Positive H (NEGATIVE) 12/24/19 12/24/19 12/24/19 Range/Units 11:25 11:25 11:25 WBC (3.98-10.04) K/mm3 RBC (3.98-5.22) M/mm3 Hgb (11.2-15.7) gm/dl Hct (34.1-44.9) % MCV (79.4-94.8) fl MCH (25.6-32.2) pg MCHC (32.2-35.5) g/dl RDW Std Deviation (36.4-46.3) fL Plt Count (182-369) K/mm3 MPV (9.4-12.3) fl Neutrophils % (Manual) (40-60) % Band Neutrophils % (0-10) % Lymphocytes % (Manual) (20-40) % Atypical Lymphs % % Monocytes % (Manual) (2-10) % Eosinophils % (Manual) (0.7-5.8) % Basophils % (Manual) (0.1-1.2) Platelet Estimate RBC Morph Comment PT 10.6 (9.7-11.7) SECONDS INR 0.99 APTT (22-31) SECONDS D-Dimer, Quantitative (0.19-0.50) mg/L Sodium 140 (136-145) mEq/L Potassium 4.1 (3.5-5.1) mEq/L Chloride 99 (98-107) mEq/L Carbon Dioxide 38 H (21-32) mEq/L Anion Gap 7.1 (5-15) BUN 15 (7-18) mg/dL Creatinine 1.3 H (0.55-1.02) mg/dL Est Cr Clr Drug Dosing 25.22 mL/min Estimated GFR (MDRD) 39 (>60) mL/min BUN/Creatinine Ratio 11.5 L (14-18) Glucose 104 (83-115) mg/dL Lactic Acid (0.4-2.0) mmol/L Calcium 8.7 (8.5-10.1) mg/dL Magnesium 2.3 (1.8-2.4) mg/dl Ferritin (8-252) ng/ml Total Bilirubin 0.6 (0.2-1.0) mg/dL AST 23 (15-37) U/L ALT 20 (14-59) U/L Alkaline Phosphatase 115 (46-116) U/L Lactate Dehydrogenase 165 (81-234) U/L CK-MB (CK-2) < 0.5 (0-3.6) ng/ml Troponin I < 0.017 (0.00-0.056) ng/mL C-Reactive Protein 1.5 H* (<1.0) mg/dL NT-Pro-B Natriuret Pep 570 H (0-450) pg/mL Total Protein 7.0 (6.4-8.2) g/dl Albumin 2.9 L (3.4-5.0) g/dl Globulin 4.1 gm/dL Albumin/Globulin Ratio 0.7 L (1-2) Urine Color (Yellow) Urine Appearance (Clear) Urine pH (5.0-8.0) Ur Specific [place] (1.005-1.030) Urine Protein (Negative) Urine Glucose (UA) (Negative) Urine Ketones (Negative) Urine Occult Blood (Negative) Urine Nitrite (Negative) Urine Bilirubin (Negative) Urine Urobilinogen (0.2-1.0) Ur Leukocyte Esterase (Negative) Urine RBC (0-5) /hpf Urine WBC (0-5) /hpf Ur Epithelial Cells (0-5) /hpf Urine Bacteria (FEW) /hpf Urine Mucus (FEW) /hpf SARS-CoV-2 RNA (IRA) (NEGATIVE) 12/24/19 12/24/19 12/24/19 Range/Units 11:25 11:25 11:25 WBC (3.98-10.04) K/mm3 RBC (3.98-5.22) M/mm3 Hgb (11.2-15.7) gm/dl Hct (34.1-44.9) % MCV (79.4-94.8) fl MCH (25.6-32.2) pg MCHC (32.2-35.5) g/dl RDW Std Deviation (36.4-46.3) fL Plt Count (182-369) K/mm3 MPV (9.4-12.3) fl Neutrophils % (Manual) (40-60) % Band Neutrophils % (0-10) % Lymphocytes % (Manual) (20-40) % Atypical Lymphs % % Monocytes % (Manual) (2-10) % Eosinophils % (Manual) (0.7-5.8) % Basophils % (Manual) (0.1-1.2) Platelet Estimate RBC Morph Comment PT (9.7-11.7) SECONDS INR APTT 25 (22-31) SECONDS D-Dimer, Quantitative 1.70 H (0.19-0.50) mg/L Sodium (136-145) mEq/L Potassium (3.5-5.1) mEq/L Chloride (98-107) mEq/L Carbon Dioxide (21-32) mEq/L Anion Gap (5-15) BUN (7-18) mg/dL Creatinine (0.55-1.02) mg/dL Est Cr Clr Drug Dosing mL/min Estimated GFR (MDRD) (>60) mL/min BUN/Creatinine Ratio (14-18) Glucose (83-115) mg/dL Lactic Acid 1.2 (0.4-2.0) mmol/L Calcium (8.5-10.1) mg/dL Magnesium (1.8-2.4) mg/dl Ferritin 42 (8-252) ng/ml Total Bilirubin (0.2-1.0) mg/dL AST (15-37) U/L ALT (14-59) U/L Alkaline Phosphatase (46-116) U/L Lactate Dehydrogenase (81-234) U/L CK-MB (CK-2) (0-3.6) ng/ml Troponin I (0.00-0.056) ng/mL C-Reactive Protein (<1.0) mg/dL NT-Pro-B Natriuret Pep (0-450) pg/mL Total Protein (6.4-8.2) g/dl Albumin (3.4-5.0) g/dl Globulin gm/dL Albumin/Globulin Ratio (1-2) Urine Color (Yellow) Urine Appearance (Clear) Urine pH (5.0-8.0) Ur Specific [place] (1.005-1.030) Urine Protein (Negative) Urine Glucose (UA) (Negative) Urine Ketones (Negative) Urine Occult Blood (Negative) Urine Nitrite (Negative) Urine Bilirubin (Negative) Urine Urobilinogen (0.2-1.0) Ur Leukocyte Esterase (Negative) Urine RBC (0-5) /hpf Urine WBC (0-5) /hpf Ur Epithelial Cells (0-5) /hpf Urine Bacteria (FEW) /hpf Urine Mucus (FEW) /hpf SARS-CoV-2 RNA (IRA) (NEGATIVE) Meds: Medications Generic Name Dose Route Start Last Admin Trade Name Freq PRN Reason Stop Dose Admin Albuterol/Ipratropium 3 ml 12/24/19 10:25 Duoneb 3.0-0.5 Mg/3 Ml NEB Q4H PRN Shortness Of Breath/wheezing Dextrose/Sodium Chloride 1,000 mls @ 75 mls/hr 12/24/19 10:30 12/24/19 11:07 Dextrose 5%-Normal Saline IV 75 mls/hr ASDIRECTED RIAZ Administration Nitroglycerin/Dextrose 25 mg in 250 mls @ 6 mls/hr 12/24/19 11:45 12/24/19 12:09 Nitroglycerin 25 Mg/D5w 250 Ml IV 10 mcg/min TITRATE RIAZ 6 mls/hr Administration Protocol 10 MCG/MIN Discontinued Medications Generic Name Dose Route Start Last Admin Trade Name Freq PRN Reason Stop Dose Admin Acetaminophen 650 mg 12/24/19 10:22 12/24/19 11:07 Tylenol PO 12/24/19 10:23 650 mg NOW STA Administration Furosemide 60 mg 12/24/19 10:26 12/24/19 11:07 Lasix IVPUSH 12/24/19 10:27 60 mg NOW ONE Administration Furosemide Confirm 12/24/19 10:52 12/24/19 11:07 Lasix Administered 12/24/19 10:53 Not Given Dose 40 mg .ROUTE .STK-MED ONE - Radiology Interpretation Free Text/Narrative:: 89-year-old female presents to the ED per [place] [facility] as she resides in [facility]. She presents with a low-grade fever. Marked audible wheezing and respiratory distress with O2 sats of 86 to 88% on room air. Placed on 3 L by nasal cannula to achieve sats of 93%. She will be given a DuoNeb this soon as possible. Clinically I believe she is in acute pulmonary edema and will be given Lasix 60 mg IV bolus. She will be tested for the COVID-19 virus because she has a fever of course a chest x-ray will be done. Routine labs and septic work-up to be carried out. - Re-Assessments/Exams Free Text/Narrative Re-Assessment/Exam: 12/24/19 11:18 Portable chest x-ray reveals moderate cardiomegaly with tortuous thoracic aorta. Calcification within the arch of the aorta. There is a diffuse vascular congestion pattern compatible with acute pulmonary edema. No pleural effusions are evident. Vague density within the left mid to upper lung concerning for this is fluid versus an early pneumonia. O2 sats are 97 to 98% on the 3 L by nasal cannula. P is 135/61. I going to start her on low-dose nitroglycerin drip in an effort to alleviate some of her preload and afterload. 12/24/19 12:13 Total white count is 5.25. Differential pending. Hemoglobin is 12.5 with with hematocrit of 41.1. MCV is elevated at 100.5. Platelet count 194,000. Urinalysis shows trace of leukocyte esterase but no RBCs or WBCs on the slide. COVID 19 test is positive. Lactic acid is normal at 1.2. 12/24/19 13:20 C-reactive protein is 1.5. SARS COVID-19 virus is positive. Urinalysis shows only trace of leukocyte Estrace. Serum ferritin is 42. Lactic dehydrogenase 165 normal. 12/24/19 14:10: I did speak with the patient's daughter who is power of insurance attorney. Really the patient should be admitted to the hospital but there are no beds here and no beds in [place] or in [facility]. They have a COVID unit at [facility] in [place] but have concerns about taking her back due to need for oxygen. Part of her oxygen requirements are secondary to heart failure with her BNP at 570. She is currently taking Lasix 60 mg once a day in the morning. We do not have any choice but to send her back to that institution until a bed becomes available. I suspect her hypoxia will probably worsen over the next 48 hours and she will require admission. I am going to place her on dexamethasone 3 mg twice daily for 5 days. Increased her Lasix to 60 in the morning and 20 mid afternoon. She will be maintained on oxy gen at 3 L and up to 4 L/min if necessary to maintain O2 sats greater than 93%. Patient herself does not want to be admitted elsewhere and wishes to return back to the [facility]. The problem comes whether or not that facility can meet her needs. Patient is at high risk of succumbing to COVID-19 illness. At present however there is no beds available in any major hospital in the [facility]. 12/24/19 16:04: [facility] personnel feel they can meet her oxygen needs at this time as long as she does not need more than 4 L/min as at all there concentrators can provide. She will be picked up by the bus around 1800 hrs. as they have a dialysis patient they will have to transport back to [facility] as well. Departure - Departure Time of Disposition: 18:14 Disposition: DC/Tfer to [facility] Condition: Serious Clinical Impression: COVID-19 determined by clinical diagnostic criteria, Hypoxemia Congestive heart failure Qualifiers: Qualified Code(s): I50.9 - Heart failure, unspecified - Discharge Information *PRESCRIPTION DRUG MONITORING PROGRAM REVIEWED*: Not Applicable *COPY OF PRESCRIPTION DRUG MONITORING REPORT IN PATIENT KAYLEE: Not Applicable Prescriptions: dexAMETHasone [Dexamethasone] 3 mg PO BID #20 tablet Instructions: COVID-19 Frequently Asked Questions, Heart Failure, Diagnosis, [id number] Referrals: PCP,None [Ordering Only Provider] - Forms: ED Department Discharge Additional Instructions: Evaluation in the emergency room today in regards to low oxygen levels and audible wheezing with low-grade fever. Illness seemed to start yesterday and worsened overnight. Initial evaluation revealed increased fluid in the lungs called pulmonary edema and you were treated with Lasix 60 mg intravenously. Your oxygen level was 86 to 88% on room air and he required supplementation at 3 L/min by nasal cannula. Chest x-ray revealed diffuse vascular congestion and a small infiltrate in the left lung which may be the beginnings of pneumonia associated with COVID-19 viral infection which was positive today. Treatment is conservative with oxygen supplementation as needed usually between 2 and 3 L/min at all times and up to 4 L/min if necessary to maintain O2 sats greater than 93%. You are currently on Lasix 60 mg once daily in the morning and I would suggest addition of 20 mg in the afternoon for the next 5 days to provide further diuresis and improvement of heart failure. Suggest dexamethasone 4 mg tablet twice daily for 5 days to reduce the inflammation caused by COVID-19 illness. You would need to return to the hospital if your oxygen saturations cannot be maintained at greater than 93% with the oxygen supplementation availability at [facility]. Sepsis Event Note (ED) - Focused Exam Vital Signs: Vital Signs Temp Pulse Resp BP Pulse Ox 12/24/19 10:13 37.1 C 82 31 H 129/65 87 L - My Orders Last 24 Hours: My Active Orders 12/24/19 10:22 EKG Documentation Completion [RC] STAT 12/24/19 10:23 Oxygen Therapy [RC] ASDIRECTED 12/24/19 10:24 Blood Culture x2 Reflex Set [OM.PC] Stat 12/24/19 10:25 RT Aerosol Therapy [RC] ASDIRECTED Albuterol/Ipratropium [DuoNeb 3.0-0.5 MG/3 ML] 3 ml NEB Q4H PRN 12/24/19 10:30 Dextrose 5%-0.9% NaCl [Dextrose 5%-Normal Saline] 1,000 ml IV ASDIRECTED 12/24/19 11:25 CULTURE BLOOD [BC] Stat 12/24/19 11:35 CULTURE BLOOD [BC] Stat 12/24/19 11:45 Nitroglycerin/D5W [Nitroglycerin 25 MG/D5W 250 ML] 25 mg in 250 ml IV TITRATE - Assessment/Plan Last 24 Hours: My Active Orders 12/24/19 10:22 EKG Documentation Completion [RC] STAT 12/24/19 10:23 Oxygen Therapy [RC] ASDIRECTED 12/24/19 10:24 Blood Culture x2 Reflex Set [OM.PC] Stat 12/24/19 10:25 RT Aerosol Therapy [RC] ASDIRECTED Albuterol/Ipratropium [DuoNeb 3.0-0.5 MG/3 ML] 3 ml NEB Q4H PRN 12/24/19 10:30 Dextrose 5%-0.9% NaCl [Dextrose 5%-Normal Saline] 1,000 ml IV ASDIRECTED 12/24/19 11:25 CULTURE BLOOD [BC] Stat 12/24/19 11:35 CULTURE BLOOD [BC] Stat 12/24/19 11:45 Nitroglycerin/D5W [Nitroglycerin 25 MG/D5W 250 ML] 25 mg in 250 ml IV TITRATE
[2019-12-24] MEDS ORDERED: Dextrose 5%-0.9% NaCl 1,000 ML IV SCH (10:30)
[2019-12-24 10:36] VITALS: BP 129/65
[2019-12-24] MEDS ORDERED: Furosemide 40 MG/4 ML VIAL ONE (10:52)
[2019-12-24] MEDS ORDERED: Nitroglycerin/D5W 25 MG/250 ML BOTTLE IV SCH (11:45)
--- NOTE | 2019-12-24 11:55 | CR ---
Chest: Portable view of the chest was obtained. Comparison: Prior chest x-ray of 02/23/17. Heart size and mediastinum are within normal limits for portable technique. Vague density is noted within the left mid to upper lung. Lungs otherwise are clear. Bony structures are grossly intact. Impression: 1. Vague density within left mid to upper lung. Uncertain if this is real and due to early area of pneumonia or is artifact. If patient condition permits, upright PA and lateral study would be helpful. 2. Nothing acute is otherwise seen on portable chest x-ray. Diagnostic code #3 This report was dictated in MDT
[2019-12-24 19:49] VITALS: PULSE 76
== END 2019-12-24 18:35 ==
LOC: JD.ED 10:01
DX: U07.1 COVID-19 (principal); I11.0 Hypertensive heart disease with heart failure; I50.9 Heart failure, unspecified; R09.02 Hypoxemia; E03.9 Hypothyroidism, unspecified; E78.00 Pure hypercholesterolemia, unspecified; Z79.02 Long term (current) use of antithrombotics/antiplatelets; Z79.899 Other long term (current) drug therapy
CPT/HCPCS: 36415; 71045; 80053; 81001; 82553; 82728; 83605; 83615; 83735; 83880; 84484; 85007; 85027; 85379; 85610; 85730; 86140; 87040; 93005; 96361; 96365; 96366; 96375; 99285; A9270; J1940; J3490; J7042; U0002; 93010

== ENCOUNTER 2020-01-11 13:11 | Inpatient (IN) | payer MEDICARE, OTHER, MEDICAID ==
[2020-01-11] MEDS ORDERED: cefTRIAXone 2 GM in Sodium Chloride 0.9% 100 ML IV SCH (16:30)
--- NOTE | 2020-01-11 16:57 | EDM.PDOC ---
ED HPI GENERAL MEDICAL PROBLEM - General Chief Complaint: Skin Complaint Stated Complaint: [facility] Time Seen by Provider: 01/11/20 14:07 Source of Information: Reports: Alf Records, RN Notes Reviewed - History of Present Illness INITIAL COMMENTS - FREE TEXT/NARRATIVE: Patient is an 89-year-old female presenting from [facility] in [place] with complaints of a wound to her sacrum. Nursing staff states that the were not aware that this wound was present prior to today. They have been monitoring a pressure ulcer on her left buttocks, however were not aware of the presence of this ulcer. Ulcer was recognized today and noted to have a foul odor, therefore she was sent to the emergency department. She has had no fever recently. She was diagnosed COVID+ 18 days ago. At the diagnosis of her COVID, her supplemental oxygen was increased from 1 to 2 L to 4 L via nasal cannula. She did present to the ER on 4 L via nasal cannula satting 100%. On triage, she was afebrile and other vital signs were stable. Sacral Pain Score (Numeric/FACES): 5 - Related Data Allergies Allergy/AdvReac Type Severity Reaction Status Date / Time No Known Allergies Allergy Verified 01/11/20 21:34 Home Meds: Home Meds Albuterol Sulfate [Proair Respiclick] 1 puff IH Q4H PRN 02/23/17 [History] Furosemide [Lasix] 40 mg PO DAILY 02/23/17 [History] Levothyroxine [Synthroid] 112 mcg PO DAILY 02/23/17 [History] Sertraline [Zoloft] 25 mg PO BEDTIME 02/23/17 [History] Simvastatin [Zocor] 5 mg PO BEDTIME 02/23/17 [History] Clopidogrel [Plavix] 75 mg PO DAILY #30 tablet 02/28/17 [Rx] Famotidine [Pepcid] 20 mg PO DAILY #30 tablet 02/28/17 [Rx] Nitroglycerin [IJP: Nitroglycerin] 0.4 mg SL Q5M PRN #30 tablet, sublingual 02/28/17 [Rx] Albuterol Sulfate [Proair Respiclick] 1 puff INH BID 12/24/19 [History] Bacitracin [Bacitracin Oint] 1 applic TOP DAILY 12/24/19 [History] Docusate Sodium/Sennosides [Senna Plus] 1 tab PO BID PRN 12/24/19 [History] Furosemide [Lasix] 60 mg PO DAILY 12/24/19 [History] Metoprolol Succinate [Toprol XL 50mg] 50 mg PO DAILY 12/24/19 [History] dexAMETHasone [Dexamethasone] 3 mg PO BID #20 tablet 12/24/19 [Rx] Past Medical History HEENT History: Reports: Cataract Cardiovascular History: Reports: High Cholesterol, Hypertension Respiratory History: Reports: COPD Gastrointestinal History: Reports: Chronic Constipation Other Genitourinary History: Kidney cancer. Kidney was removed on the left side. [employer]ATE History: Reports: Musculoskeletal History: Reports: None Endocrine/Metabolic History: Reports: Hypothyroidism Oncologic (Cancer) History: Reports: Other (See Below) Other Oncologic History: kidney - Infectious Disease History Infectious Disease History: Reports: Novel Coronavirus - Past Surgical History HEENT Surgical History: Reports: Cataract Surgery Endocrine Surgical History: Reports: None Musculoskeletal Surgical History: Reports: None Social & Family History - Family History Family Medical History: Noncontributory - Caffeine Use Caffeine Use: Reports: None Caffeine Use Comment: Patient states she drinks 3 cups decaf coffee per day - Recreational Drug Use Recreational Drug Use: No - Living Situation & Occupation Living situation: Reports: , Extended Care Facility (Currently residing [facility] in [place], [place]) Occupation: Retired ED ROS GENERAL - Review of Systems Review Of Systems: See Below Constitutional: Reports: No Symptoms. Denies: Fever, Chills HEENT: Reports: No Symptoms Respiratory: Reports: No Symptoms. Denies: Wheezing, Cough Cardiovascular: Reports: No Symptoms. Denies: Chest Pain Endocrine: Reports: No Symptoms GI/Abdominal: Reports: No Symptoms. Denies: Abdominal Pain, Diarrhea, Nausea, Vomiting : Reports: No Symptoms Musculoskeletal: Reports: No Symptoms Skin: Reports: Wound (Large decubitus ulcer on her sacrum. Superficial pressure ulcer on the left buttocks.) Neurological: Reports: Confusion (At baseline) Psychiatric: Reports: No Symptoms Hematologic/Lymphatic: Reports: No Symptoms Immunologic: Reports: No Symptoms ED EXAM, SKIN/RASH Exam: See Below General Appearance: Alert, WD/WN, No Apparent Distress Respiratory/Chest: No Respiratory Distress, Lungs Clear, Normal Breath Sounds, No Accessory Muscle Use, Chest Non-Tender Cardiovascular: Normal Peripheral Pulses, Regular Rate, Rhythm, No Edema, No Gallop, No JVD, No Murmur, No Rub GI/Abdominal: Normal Bowel Sounds, Soft, Non-Tender, No Organomegaly, No Distention, No Abnormal Bruit, No Mass Neurological: Alert, CN II-XII Intact, Normal Cognition, Normal Gait, Normal Reflexes, No Motor/Sensory Deficits Psychiatric: Normal Affect Skin: Decubitus (Stage four 7 cm x 3 cm decubitus ulcer overlying the coccyx within the buttocks crease. Significant foul smell as well as necrotic tissue present. Estimated depth is about 2 cm measured with culture swab. Smaller superficial area of breakdown over the left buttocks cheek with Mepilex dressing in place.) Course - Vital Signs Last Recorded V/S: Last Vital Signs Temp 97.7 F 01/12/20 20:00 Pulse 74 01/12/20 08:14 Resp 22 H 01/12/20 20:00 BP 106/67 01/12/20 20:00 Pulse Ox 96 01/12/20 20:00 - Orders/Labs/Meds Orders: Active Orders 24 hr Category Date Time Status Activity as Tolerated [RC] .Routine Care 01/11/20 19:54 Active Antiembolic Devices [RC] BID Care 01/11/20 19:55 Active EKG Documentation Completion [RC] ASDIRECTED Care 01/11/20 19:59 Active Zhou Catheter Insertion [Insert Urinary Catheter] [OM. Care 01/12/20 09:45 Or dered PC] Q24H Influenza Vaccine Charge [RC] .DISCHARGE Care 01/11/20 21:36 Active Oxygen Therapy [RC] .PRN Care 01/11/20 19:54 Active Pulse Oximetry [RC] ASDIRECTED Care 01/11/20 20:20 Active RT Incentive Spirometry [RC] Q1HWA Care 01/11/20 19:54 Active Urinary Catheter Assessment [RC] Q4HR Care 01/12/20 09:35 Active Vital Signs [RC] Q4HR Care 01/11/20 19:54 Active Acetaminophen [TylenoL] Med 01/11/20 20:00 Active 975 mg PO Q8H Albuterol [Proventil HFA] Med 01/11/20 21:00 Active 0 gm INH BID Albuterol [Proventil HFA] Med 01/11/20 19:55 Active 0 gm INH Q4H PRN Cefepime [Maxipime in D5W 2 GM/50 ML] 2 gm Med 01/12/20 20:00 Active Premix Bag 1 bag IV Q24H Clopidogrel [Plavix] Med 01/12/20 09:00 Active 75 mg PO DAILY Docusate Sodium/Sennosides [Senna Plus] Med 01/11/20 19:55 Active 1 tab PO BID PRN Famotidine [Pepcid] Med 01/12/20 09:00 Active 20 mg PO DAILY Furosemide [Lasix] Med 01/12/20 09:00 Active 40 mg PO DAILY Levothyroxine Med 01/12/20 09:00 Active 112 mcg PO DAILY Metoprolol Succinate [Toprol XL] Med 01/12/20 09:00 Active 50 mg PO DAILY Morphine Med 01/11/20 19:51 Active 0.5 mg IVPUSH Q4H PRN Nitroglycerin [Nitrostat] Med 01/11/20 19:55 Active 0.4 mg SL Q5M PRN Pharmacy to Dose - InFluenza V [Pharmacy to Dose - Med 01/12/20 09:00 Active InFluenza Vaccine] 1 each IM DAILY Sertraline [Zoloft] Med 01/11/20 21:00 Active 25 mg PO BEDTIME Simvastatin [Zocor] Med 01/11/20 21:00 Active 5 mg PO BEDTIME Sodium Chloride 0.9% [Normal Saline] 1,000 ml Med 01/11/20 20:00 Active IV ASDIRECTED Vancomycin [Vancocin] 1 gm Med 01/11/20 20:00 Active Sodium Chloride 0.9% [Normal Saline (AdvBag)] 250 ml IV Q24H dexAMETHasone Med 01/12/20 09:00 Active 6 mg PO DAILY fentaNYL [Sublimaze] Med 01/11/20 20:20 Active 50 mcg IVPUSH Q5M PRN metroNIDAZOLE/Normal Saline [Flagyl 500 MG in NS 100 ML Med 01/12/20 00:01 Active ] 500 mg Premix Bag 1 bag IV Q8H Sequential Compression Device [OM.PC] Routine Oth 01/11/20 19:54 Ordered Resuscitation Status Routine Resus Stat 01/11/20 19:51 Ordered EKG 12 Lead [EK] Stat Ther 01/11/20 19:59 Ordered Medication Orders Acetaminophen (Tylenol) 975 mg PO Q8H [facility] Last Admin: 01/12/20 20:11 Dose: 975 mg Documented by: Admin: 01/12/20 11:31 Dose: 975 mg Documented by: Admin: 01/12/20 06:01 Dose: 975 mg Documented by: Admin: 01/11/20 21:11 Dose: 975 mg Documented by: HAIM Albuterol (Proventil Hfa) 0 gm INH Q4H PRN PRN Reason: short of breath Albuterol (Proventil Hfa) 0 gm INH BID [facility] Last Admin: 01/12/20 08:04 Dose: 1 puff Documented by: Admin: 01/11/20 22:31 Dose: 2 puff Documented by: ANNABELLA Clopidogrel Bisulfate (Plavix) 75 mg PO DAILY [facility] Last Admin: 01/12/20 08:14 Dose: 75 mg Documented by: VANE Dexamethasone (Dexamethasone) 6 mg PO DAILY [facility] Last Admin: 01/12/20 08:38 Dose: 6 mg Documented by: VANE Famotidine (Pepcid) 20 mg PO DAILY [facility] Last Admin: 01/12/20 08:14 Dose: 20 mg Documented by: VANE Fentanyl (Sublimaze) 50 mcg IVPUSH Q5M PRN PRN Reason: Pain Furosemide (Lasix) 40 mg PO DAILY [facility] Last Admin: 01/12/20 08:14 Dose: 40 mg Documented by: VANE Sodium Chloride (Normal Saline) 1,000 mls @ 50 mls/hr IV ASDIRECTED [facility] Last Admin: 01/12/20 08:38 Dose: 50 mls/hr Documented by: VANE Vancomycin HCl 1 gm/ Sodium (Chloride) 250 mls @ 250 mls/hr IV Q24H [facility] Last Admin: 01/11/20 21:30 Dose: 250 mls/hr Documented by: HAIM Metronidazole 500 mg/ Premix 100 mls @ 100 mls/hr IV Q8H [facility] Last Admin: 01/12/20 15:42 Dose: 100 mls/hr Documented by: Infusion: 01/12/20 09:14 Dose: 100 mls/hr Documented by: Admin: 01/12/20 08:14 Dose: 100 mls/hr Documented by: Infusion: 01/12/20 01:41 Dose: 100 mls/hr Documented by: Admin: 01/12/20 00:41 Dose: 100 mls/hr Documented by: ANGELIC Cefepime HCl 2 gm/ Premix 50 mls @ 100 mls/hr IV Q24H [facility] Last Admin: 01/12/20 19:48 Dose: 100 mls/hr Documented by: MARINA Influenza Virus Vaccine (Pharmacy To Dose - Influenza Vaccine) 1 each IM DAILY [facility] Last Admin: 01/12/20 08:15 Dose: Not Given Documented by: VANE Levothyroxine Sodium (Levothyroxine) 112 mcg PO DAILY [facility] Last Admin: 01/12/20 08:14 Dose: 112 mcg Documented by: VANE Metoprolol Succinate (Toprol Xl) 50 mg PO DAILY [facility] Last Admin: 01/12/20 08:14 Dose: 50 mg Documented by: VANE Morphine Sulfate (Morphine) 0.5 mg IVPUSH Q4H PRN PRN Reason: Pain (severe 7-10) Last Admin: 01/12/20 11:30 Dose: 0.5 mg Documented by: VANE Nitroglycerin (Nitrostat) 0.4 mg SL Q5M PRN PRN Reason: Chest Pain Senna/Docusate Sodium (Senna Plus) 1 tab PO BID PRN PRN Reason: Constipation Sertraline HCl (Zoloft) 25 mg PO BEDTIME [facility] Last Admin: 01/12/20 20:12 Dose: 25 mg Documented by: Admin: 01/11/20 21:14 Dose: 25 mg Documented by: HAIM Simvastatin (Zocor) 5 mg PO BEDTIME [facility] Last Admin: 01/12/20 20:11 Dose: 5 mg Documented by: Admin: 01/11/20 21:14 Dose: 5 mg Documented by: HAIM Labs: Laboratory Tests 01/11/20 01/11/20 01/11/20 Range/Units 14:33 14:33 15:27 WBC 24.07 H (3.98-10.04) K/mm3 RBC 3.67 L (3.98-5.22) M/mm3 Hgb 11.0 L D (11.2-15.7) gm/dl Hct 35.1 (34.1-44.9) % MCV 95.6 H D (79.4-94.8) fl MCH 30.0 (25.6-32.2) pg MCHC 31.3 L (32.2-35.5) g/dl RDW Std Deviation 43.0 (36.4-46.3) fL Plt Count 241 (182-369) K/mm3 MPV 11.5 (9.4-12.3) fl Neut % (Auto) 90.9 H (34.0-71.1) % Lymph % (Auto) 2.4 L (19.3-51.7) % Ford % (Auto) 6.1 (4.7-12.5) % Eos % (Auto) 0 L (0.7-5.8) Baso % (Auto) 0.1 (0.1-1.2) % Neut # (Auto) 21.86 H (1.56-6.13) K/mm3 Lymph # (Auto) 0.58 L (1.18-3.74) K/mm3 Ford # (Auto) 1.48 H (0.24-0.36) K/mm3 Eos # (Auto) 0.00 L (0.04-0.36) K/mm3 Baso # (Auto) 0.02 (0.01-0.08) K/mm3 Manual Slide Review Abnormal smear Sodium 137 (136-145) mEq/L Potassium 3.9 (3.5-5.1) mEq/L Chloride 99 (98-107) mEq/L Carbon Dioxide 31 (21-32) mEq/L Anion Gap 10.9 (5-15) BUN 29 H (7-18) mg/dL Creatinine 1.6 H (0.55-1.02) mg/dL Est Cr Clr Drug Dosing TNP Estimated GFR (MDRD) 30 (>60) mL/min BUN/Creatinine Ratio 18.1 H (14-18) Glucose 183 H (83-115) mg/dL Lactic Acid 1.8 (0.4-2.0) mmol/L Calcium 8.2 L (8.5-10.1) mg/dL Total Bilirubin 1.3 H (0.2-1.0) mg/dL AST 71 H (15-37) U/L ALT 74 H (14-59) U/L Alkaline Phosphatase 136 H (46-116) U/L C-Reactive Protein 35.4 H* (<1.0) mg/dL Total Protein 6.6 (6.4-8.2) g/dl Albumin 1.7 L (3.4-5.0) g/dl Globulin 4.9 gm/dL Albumin/Globulin Ratio 0.4 L (1-2) SARS-CoV-2 RNA (IRA) (NEGATIVE) 01/11/20 01/12/20 01/12/20 Range/Units 17:20 05:57 05:57 WBC 22.29 H (3.98-10.04) K/mm3 RBC 3.43 L (3.98-5.22) M/mm3 Hgb 10.3 L (11.2-15.7) gm/dl Hct 33.4 L (34.1-44.9) % MCV 97.4 H (79.4-94.8) fl MCH 30.0 (25.6-32.2) pg MCHC 30.8 L (32.2-35.5) g/dl RDW Std Deviation 43.7 (36.4-46.3) fL Plt Count 225 (182-369) K/mm3 MPV 11.9 (9.4-12.3) fl Neut % (Auto) 90.0 H (34.0-71.1) % Lymph % (Auto) 3.7 L (19.3-51.7) % Ford % (Auto) 5.5 (4.7-12.5) % Eos % (Auto) 0.1 L (0.7-5.8) Baso % (Auto) 0.1 (0.1-1.2) % Neut # (Auto) 20.06 H (1.56-6.13) K/mm3 Lymph # (Auto) 0.83 L (1.18-3.74) K/mm3 Ford # (Auto) 1.23 H (0.24-0.36) K/mm3 Eos # (Auto) 0.02 L (0.04-0.36) K/mm3 Baso # (Auto) 0.02 (0.01-0.08) K/mm3 Manual Slide Review Abnormal smear Sodium 140 (136-145) mEq/L Potassium 3.7 (3.5-5.1) mEq/L Chloride 102 (98-107) mEq/L Carbon Dioxide 31 (21-32) mEq/L Anion Gap 10.7 (5-15) BUN 28 H (7-18) mg/dL Creatinine 1.2 H (0.55-1.02) mg/dL Est Cr Clr Drug Dosing 27.32 Estimated GFR (MDRD) 42 (>60) mL/min BUN/Creatinine Ratio 23.3 H (14-18) Glucose 153 H (83-115) mg/dL Lactic Acid (0.4-2.0) mmol/L Calcium 8.6 (8.5-10.1) mg/dL Total Bilirubin (0.2-1.0) mg/dL AST (15-37) U/L ALT (14-59) U/L Alkaline Phosphatase (46-116) U/L C-Reactive Protein (<1.0) mg/dL Total Protein (6.4-8.2) g/dl Albumin (3.4-5.0) g/dl Globulin gm/dL Albumin/Globulin Ratio (1-2) SARS-CoV-2 RNA (IRA) Positive H (NEGATIVE) Meds: Medications Generic Name Dose Route Start Last Admin Trade Name Freq PRN Reason Stop Dose Admin Acetaminophen 975 mg 01/11/20 20:00 01/12/20 20:11 Tylenol PO 975 mg Q8H RIAZ Administration Albuterol 0 gm 01/11/20 19:55 Proventil Hfa INH Q4H PRN short of breath Albuterol 0 gm 01/11/20 21:00 01/12/20 08:04 Proventil Hfa INH 1 puff BID RIAZ Administration Clopidogrel Bisulfate 75 mg 01/12/20 09:00 01/12/20 08:14 Plavix PO 75 mg DAILY RIAZ Administration Dexamethasone 6 mg 01/12/20 09:00 01/12/20 08:38 Dexamethasone PO 6 mg DAILY RIAZ Administration Famotidine 20 mg 01/12/20 09:00 01/12/20 08:14 Pepcid PO 20 mg DAILY RIAZ Administration Fentanyl 50 mcg 01/11/20 20:20 Sublimaze IVPUSH Q5M PRN Pain Furosemide 40 mg 10/10/20 09:00 01/12/20 08:14 Lasix PO 40 mg DAILY RIAZ Administration Sodium Chloride 1,000 mls @ 50 mls/hr 01/11/20 20:00 01/12/20 08:38 Normal Saline IV 50 mls/hr ASDIRECTED RIAZ Administration Vancomycin HCl 1 gm/ Sodium 250 mls @ 250 mls/hr 01/11/20 20:00 01/11/20 21:30 Chloride IV 250 mls/hr Q24H RIAZ Administration Metronidazole 500 mg/ Premix 100 mls @ 100 mls/hr 01/12/20 00:01 01/12/20 15:42 IV 100 mls/hr Q8H RIAZ Administration Cefepime HCl 2 gm/ Premix 50 mls @ 100 mls/hr 01/12/20 20:00 01/12/20 19:48 IV 100 mls/hr Q24H RIAZ Administration Influenza Virus Vaccine 1 each 01/12/20 09:00 01/12/20 08:15 Pharmacy To Dose - Influenza Vaccine IM Not Given DAILY RIAZ Levothyroxine Sodium 112 mcg 01/12/20 09:00 01/12/20 08:14 Levothyroxine PO 112 mcg DAILY RIAZ Administration Metoprolol Succinate 50 mg 01/12/20 09:00 01/12/20 08:14 Toprol Xl PO 50 mg DAILY RIAZ Administration Morphine Sulfate 0.5 mg 01/11/20 19:51 01/12/20 11:30 Morphine IVPUSH 0.5 mg Q4H PRN Administration Pain (severe 7-10) Nitroglycerin 0.4 mg 01/11/20 19:55 Nitrostat SL Q5M PRN Chest Pain Senna/Docusate Sodium 1 tab 01/11/20 19:55 Senna Plus PO BID PRN Constipation Sertraline HCl 25 mg 01/11/20 21:00 01/12/20 20:12 Zoloft PO 25 mg BEDTIME RIAZ Administration Simvastatin 5 mg 01/11/20 21:00 01/12/20 20:11 Zocor PO 5 mg BEDTIME RIAZ Administration Discontinued Medications Generic Name Dose Route Start Last Admin Trade Name Freq PRN Reason Stop Dose Admin Bupivacaine HCl/Epinephrine Bitart Confirm 01/11/20 18:19 Marcaine 0.5%/Epinephrine 1:200,000 Administered 01/11/20 18:20 Dose 50 ml .ROUTE .STK-MED ONE Dexamethasone 3 mg 01/11/20 21:00 01/12/20 08:15 Dexamethasone Intensol PO Not Given BID RIAZ Ephedrine Sulfate Confirm 01/11/20 19:27 Ephedrine Sulfate Administered 01/11/20 19:28 Dose 50 mg .ROUTE .STK-MED ONE Fentanyl Confirm 01/11/20 18:04 Sublimaze Administered 01/11/20 18:05 Dose 100 mcg .ROUTE .STK-MED ONE Ceftriaxone Sodium 2 gm/ 100 mls @ 200 mls/hr 01/11/20 16:30 01/11/20 17:03 Sodium Chloride IV 200 mls/hr Q24H RIAZ Administration Lidocaine HCl Confirm 01/11/20 18:03 Xylocaine-Mpf 1% Administered 01/11/20 18:04 Dose 4 mls @ as directed .ROUTE .STK-MED ONE Cefepime HCl 1 gm/ Premix 50 mls @ 100 mls/hr 01/11/20 20:00 01/11/20 20:59 IV 100 mls/hr Q24H RIAZ Administration Propofol Confirm 01/11/20 18:03 Diprivan 20 Ml Administered 01/11/20 18:04 Dose 200 mg .ROUTE .STK-MED ONE Propofol Confirm 01/11/20 19:19 Diprivan 20 Ml Administered 01/11/20 19:20 Dose 200 mg .ROUTE .STK-MED ONE - Re-Assessments/Exams Free Text/Narrative Re-Assessment/Exam: Patient is an 89-year-old female sent from [facility] in [facility] with complaints of a wound on her sacrum. On exam, patient has a stage IV decu bitus ulcer with significant foul smell and drainage overlying her sacrum and her buttocks crease. Measurements are 7 cm x 3 cm and approximately 2 cm deep. There is a significant amount of necrotic tissue noted within the wound. Patient was afebrile in triage. Oxygen saturation were 100% on 4 L, therefore her oxygen was turned down to 2 L via nasal cannula by nursing staff. She continues to maintain 100% oxygenation on 2 L. I have ordered a CBC, CMP, CRP, lactic acid, blood cultures, and aerobic and anaerobic wound cultures. 01/11/20 1740 Hematology was significant for WBC elevated at 24.07, hemoglobin 11.0, BUN 29, creatinine 1.6, glucose 183, total bili 1.3, AST 71, ALT 74, alkaline phosphatase 136, CRP 35.4. To the extent of necrosis in the size of this wound, as well as her elevated WBCs and CRP, I do feel that IV antibiotics as well as wound care are indicated. I have ordered Rocephin [address] Solares and he recommended that I consult Dr. Jaramillo, general surgeon. Spoke with Dr. Jaramillo. He examined the patient and will take her to surgery for surgical debridement as well as wound VAC placement. He spoke with the patient's family and they are in agreement to this. Patient will be admitted under Dr. Jaramillo for IV antibiotics after the procedure. Departure - Departure Time of Disposition: 17:40 Disposition: Admitted As Inpatient 68 Condition: Fair Clinical Impression: Decubitus ulcer of sacral region, stage 4 - Discharge Information Sepsis Event Note (ED) - Evaluation Sepsis Screening Result: No Definite Risk - Focused Exam Vital Signs: Vital Signs Temp Pulse Resp BP BP Pulse Ox 01/12/20 08:14 74 119/64 01/12/20 08:13 98.2 F 22 H 119/64 95
[2020-01-11] MEDS ORDERED: Propofol 200 MG/20 ML SDV ONE ×2 (18:03→19:19)
[2020-01-11] MEDS ORDERED: Lidocaine 1% 4 ML ONE (18:03)
[2020-01-11] MEDS ORDERED: fentaNYL 100 MCG/2 ML SDV ONE (18:04)
--- NOTE | 2020-01-11 18:14 | PCM.HP.2 ---
H&P History of Present Illness - General Date of Service: 01/11/20 Admit Problem/Dx: infected sacral decubitus ulcer Source of Information: Provider History Limitations: Reports: Altered Mental Status - History of Present Illness Other HPI/Comments: Mrs. Hsieh is an 89 yo woman living in a alf who was found to have a large, infected sacral decubitus ulcer by staff today. She was taken to the ER, and labs were obtained showing a marked leukocytosis of 24,000. Her vitals are otherwise in her normal range. She received IV antibiotics in the ER. She is chronically ill, with CHF, COPD, recent COVID respiratory illness, chronic kidney disease, and dementia. Her adult children make her medical decisions, and she is listed as DNR. - Related Data Allergies/Adverse Reactions: Allergies Allergy/AdvReac Type Severity Reaction Status Date / Time No Known Allergies Allergy Verified 01/11/20 15:19 Home Medications: Home Meds Albuterol Sulfate [Proair Respiclick] 1 puff IH Q4H PRN 02/23/17 [History] Furosemide [Lasix] 40 mg PO DAILY 02/23/17 [History] Levothyroxine [Synthroid] 112 mcg PO DAILY 02/23/17 [History] Sertraline [Zoloft] 25 mg PO BEDTIME 02/23/17 [History] Simvastatin [Zocor] 5 mg PO BEDTIME 02/23/17 [History] Clopidogrel [Plavix] 75 mg PO DAILY #30 tablet 02/28/17 [Rx] Famotidine [Pepcid] 20 mg PO DAILY #30 tablet 02/28/17 [Rx] Nitroglycerin [IJP: Nitroglycerin] 0.4 mg SL Q5M PRN #30 tablet, sublingual 02/28/17 [Rx] Albuterol Sulfate [Proair Respiclick] 1 puff INH BID 12/24/19 [History] Bacitracin [Bacitracin Oint] 1 applic TOP DAILY 12/24/19 [History] Docusate Sodium/Sennosides [Senna Plus] 1 tab PO BID PRN 12/24/19 [History] Furosemide [Lasix] 60 mg PO DAILY 12/24/19 [History] Metoprolol Succinate [Toprol XL 50mg] 50 mg PO DAILY 12/24/19 [History] dexAMETHasone [Dexamethasone] 3 mg PO BID #20 tablet 12/24/19 [Rx] Past Medical History HEENT History: Reports: Cataract Cardiovascular History: Reports: High Cholesterol, Hypertension Respiratory History: Reports: COPD Gastrointestinal History: Reports: Chronic Constipation Other Genitourinary History: Kidney cancer. Kidney was removed on the left side. 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: Reports: Musculoskeletal History: Reports: None Endocrine/Metabolic History: Reports: Hypothyroidism Oncologic (Cancer) History: Reports: Other (See Below) Other Oncologic History: kidney - Infectious Disease History Infectious Disease History: Reports: Novel Coronavirus - Past Surgical History HEENT Surgical History: Reports: Cataract Surgery Endocrine Surgical History: Reports: None Musculoskeletal Surgical History: Reports: None Social & Family History - Family History Family Medical History: Noncontributory - Caffeine Use Caffeine Use: Reports: None Caffeine Use Comment: Patient states she drinks 3 cups decaf coffee per day - Recreational Drug Use Recreational Drug Use: No - Living Situation & Occupation Living situation: Reports: , Extended Care Facility (Currently residing [facility] in [place], [place]) Occupation: Retired H&P Review of Systems - Review of Systems: Review Of Systems: Unable To Obtain Reason Not Obtained: altered mental status Exam - Exam Exam: See Below - Vital Signs Vital Signs: Last Vital Signs Temp 36.3 C 01/11/20 13:15 Pulse 95 01/11/20 13:15 Resp 18 01/11/20 13:15 BP 124/73 01/11/20 13:15 Pulse Ox 98 01/11/20 13:15 Weight: 114.668 kg - Exam Quality Assessment: Supplemental Oxygen General: Mild Distress HEENT: Conjunctiva Clear GI/Abdominal Exam: Other (obese) Skin: Other - Patient Data Lab Results Last 24 hrs: Laboratory Results - last 24 hr 01/11/20 01/11/20 01/11/20 Range/Units 14:33 14:33 15:27 WBC 24.07 H (3.98-10.04) K/mm3 RBC 3.67 L (3.98-5.22) M/mm3 Hgb 11.0 L D (11.2-15.7) gm/dl Hct 35.1 (34.1-44.9) % MCV 95.6 H D (79.4-94.8) fl MCH 30.0 (25.6-32.2) pg MCHC 31.3 L (32.2-35.5) g/dl RDW Std Deviation 43.0 (36.4-46.3) fL Plt Count 241 (182-369) K/mm3 MPV 11.5 (9.4-12.3) fl Neut % (Auto) 90.9 H (34.0-71.1) % Lymph % (Auto) 2.4 L (19.3-51.7) % [place] % (Auto) 6.1 (4.7-12.5) % Eos % (Auto) 0 L (0.7-5.8) Baso % (Auto) 0.1 (0.1-1.2) % Neut # (Auto) 21.86 H (1.56-6.13) K/mm3 Lymph # (Auto) 0.58 L (1.18-3.74) K/mm3 [place] # (Auto) 1.48 H (0.24-0.36) K/mm3 Eos # (Auto) 0.00 L (0.04-0.36) K/mm3 Baso # (Auto) 0.02 (0.01-0.08) K/mm3 Manual Slide Review Abnormal smear Sodium 137 (136-145) mEq/L Potassium 3.9 (3.5-5.1) mEq/L Chloride 99 (98-107) mEq/L Carbon Dioxide 31 (21-32) mEq/L Anion Gap 10.9 (5-15) BUN 29 H (7-18) mg/dL Creatinine 1.6 H (0.55-1.02) mg/dL Est Cr Clr Drug Dosing TNP Estimated GFR (MDRD) 30 (>60) mL/min BUN/Creatinine Ratio 18.1 H (14-18) Glucose 183 H (83-115) mg/dL Lactic Acid 1.8 (0.4-2.0) mmol/L Calcium 8.2 L (8.5-10.1) mg/dL Total Bilirubin 1.3 H (0.2-1.0) mg/dL AST 71 H (15-37) U/L ALT 74 H (14-59) U/L Alkaline Phosphatase 136 H (46-116) U/L C-Reactive Protein 35.4 H* (<1.0) mg/dL Total Protein 6.6 (6.4-8.2) g/dl Albumin 1.7 L (3.4-5.0) g/dl Globulin 4.9 gm/dL Albumin/Globulin Ratio 0.4 L (1-2) Result Diagrams: 01/11/20 14:33 01/11/20 14:33 Sepsis Event Note - Evaluation Sepsis Screening Result: No Definite Risk - Focused Exam Vital Signs: Vital Signs Temp Pulse Resp BP Pulse Ox 01/11/20 13:15 36.3 C 95 18 124/73 98 Problem List Initiated/Reviewed/Updated: Yes Orders Last 24hrs: Active Orders 24 hr Category Date Time Status Chest 1V Frontal [CR] Stat Exams 01/11/20 16:33 Taken CORONAVIRUS COVID-19 IRA [MOLEC] Stat Lab 01/11/20 17:20 Received CULTURE ANAEROBIC + SMEAR [RM] Stat Lab 01/11/20 14:16 Received CULTURE BLOOD [BC] Stat Lab 01/11/20 15:20 Received CULTURE BLOOD [BC] Stat Lab 01/11/20 15:27 Received cefTRIAXone [Rocephin] 2 gm Med 01/11/20 16:30 Active Sodium Chloride 0.9% [Normal Saline] 100 ml IV Q24H Blood Culture x2 Reflex Set [OM.PC] Stat Oth 01/11/20 14:55 Ordered Medication Orders Ceftriaxone Sodium 2 gm/ (Sodium Chloride) 100 mls @ 200 mls/hr IV Q24H RIAZ Last Admin: 01/11/20 17:03 Dose: 200 mls/hr Documented by: IRVING Assessment/Plan Comment:: Elderly frail patient with significant comorbidity with infected, necrotic sacral decubitus ulcer. I discussed this at length with her son and daughter on the phone. Although I do not think the patient will overcome this without operative debridement, her overall prognosis is very poor. I clarified with family that they would like to proceed with surgery, understanding the risk of cardiovascular complications and possible need for multiple additional debridement. Plan for debridement and wound vac dressing in OR now, with admission to hospital overnight for IV antibiotics, monitoring, and repeat lab work. I anticipate discharge back to the alf soon so long as the patient has the application support administrator and resources available for wound care. - Mortality Measure Prognosis:: Poor
[2020-01-11] MEDS ORDERED: Bupivacaine 0.5%/EPINEPHrine 1:200,000 50 ML MDV ONE (18:19)
[2020-01-11] MEDS ORDERED: ePHEDrine 50 MG/ML SDV ONE (19:27)
[2020-01-11] MEDS ORDERED: Albuterol 6.7 GM Inhaler INH PRN (19:55)
[2020-01-11] MEDS ORDERED: Nitroglycerin 0.4 MG Tab.SL SL PRN (19:55)
[2020-01-11] MEDS ORDERED: Cefepime 1 GM in Premix Bag 1 BAG IV SCH (20:00)
--- NOTE | 2020-01-11 20:17 | PCM.PREANE ---
Preanesthetic Assessment - Procedure Proposed Procedure: Wound debridement - Anesthesia/Transfusion/Family Hx Anesthesia History: Prior Anesthesia Without Reaction Transfusion History: No Prior Transfusion(s) - Review of Systems General: Weakness Pulmonary: Shortness of Breath, Cough Cardiovascular: No Symptoms Gastrointestinal: No Symptoms Neurological: Confusion, Trouble Speaking Other: Reports: None (Covid +) - Physical Assessment NPO Status Date: 01/11/20 (greater than 8 hours) Vital Signs: Last Vital Signs Temp 36.3 C 01/11/20 13:15 Pulse 94 01/11/20 18:11 Resp 20 01/11/20 18:11 BP 114/64 01/11/20 18:11 Pulse Ox 98 01/11/20 18:11 Height: 5 ft 3 in Weight: 114.668 kg ASA Class: 4E Mental Status: Other (confused) Airway Class: Mallampati = 4 (unable to assess) Dentition: Reports: Edentulous ROM/Head Extension: Full Lungs: Decreased Breath Sounds (tachypnea) Cardiovascular: Regular Rate, Regular Rhythm - Lab Values: Laboratory Last Values WBC 24.07 K/mm3 (3.98-10.04) H 01/11/20 14:33 RBC 3.67 M/mm3 (3.98-5.22) L 01/11/20 14:33 Hgb 11.0 gm/dl (11.2-15.7) L D 01/11/20 14:33 Hct 35.1 % (34.1-44.9) 01/11/20 14:33 MCV 95.6 fl (79.4-94.8) H D 01/11/20 14:33 MCH 30.0 pg (25.6-32.2) 01/11/20 14:33 MCHC 31.3 g/dl (32.2-35.5) L 01/11/20 14:33 RDW Std Deviation 43.0 fL (36.4-46.3) 01/11/20 14:33 Plt Count 241 K/mm3 (182-369) 01/11/20 14:33 MPV 11.5 fl (9.4-12.3) 01/11/20 14:33 Neut % (Auto) 90.9 % (34.0-71.1) H 01/11/20 14:33 Lymph % (Auto) 2.4 % (19.3-51.7) L 01/11/20 14:33 [place] % (Auto) 6.1 % (4.7-12.5) 01/11/20 14:33 Eos % (Auto) 0 (0.7-5.8) L 01/11/20 14:33 Baso % (Auto) 0.1 % (0.1-1.2) 01/11/20 14:33 Neut # (Auto) 21.86 K/mm3 (1.56-6.13) H 01/11/20 14:33 Lymph # (Auto) 0.58 K/mm3 (1.18-3.74) L 01/11/20 14:33 [place] # (Auto) 1.48 K/mm3 (0.24-0.36) H 01/11/20 14:33 Eos # (Auto) 0.00 K/mm3 (0.04-0.36) L 01/11/20 14:33 Baso # (Auto) 0.02 K/mm3 (0.01-0.08) 01/11/20 14:33 Manual Slide Review Abnormal smear 01/11/20 14:33 Sodium 137 mEq/L (136-145) 01/11/20 14:33 Potassium 3.9 mEq/L (3.5-5.1) 01/11/20 14:33 Chloride 99 mEq/L (98-107) 01/11/20 14:33 Carbon Dioxide 31 mEq/L (21-32) 01/11/20 14:33 Anion Gap 10.9 (5-15) 01/11/20 14:33 BUN 29 mg/dL (7-18) H 01/11/20 14:33 Creatinine 1.6 mg/dL (0.55-1.02) H 01/11/20 14:33 Est Cr Clr Drug Dosing TNP 01/11/20 14:33 Estimated GFR (MDRD) 30 mL/min (>60) 01/11/20 14:33 BUN/Creatinine Ratio 18.1 (14-18) H 01/11/20 14:33 Glucose 183 mg/dL (83-115) H 01/11/20 14:33 Lactic Acid 1.8 mmol/L (0.4-2.0) 01/11/20 15:27 Calcium 8.2 mg/dL (8.5-10.1) L 01/11/20 14:33 Total Bilirubin 1.3 mg/dL (0.2-1.0) H 01/11/20 14:33 AST 71 U/L (15-37) H 01/11/20 14:33 ALT 74 U/L (14-59) H 01/11/20 14:33 Alkaline Phosphatase 136 U/L (46-116) H 01/11/20 14:33 C-Reactive Protein 35.4 mg/dL (<1.0) H* 01/11/20 14:33 Total Protein 6.6 g/dl (6.4-8.2) 01/11/20 14:33 Albumin 1.7 g/dl (3.4-5.0) L 01/11/20 14:33 Globulin 4.9 gm/dL 01/11/20 14:33 Albumin/Globulin Ratio 0.4 (1-2) L 01/11/20 14:33 SARS-CoV-2 RNA (IRA) Positive (NEGATIVE) H 01/11/20 17:20 - Allergies Allergies/Adverse Reactions: Allergies Allergy/AdvReac Type Severity Reaction Status Date / Time No Known Allergies Allergy Verified 01/11/20 15:19 - Acknowledgements Anesthesia Type Planned: MAC Pt an Appropriate Candidate for the Planned Anesthesia: Yes Alternatives and Risks of Anesthesia Discussed w Pt/Guardian: Yes Pt/Guardian Understands and Agrees with Anesthesia Plan: Yes PreAnesthesia Questionnaire HEENT History: Reports: Cataract Cardiovascular History: Reports: High Cholesterol, Hypertension Respiratory History: Reports: COPD Gastrointestinal History: Reports: Chronic Constipation Other Genitourinary History: Kidney cancer. Kidney was removed on the left side. 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 PHYSICIAN ASSISTANT History: Reports: Musculoskeletal History: Reports: None Endocrine/Metabolic History: Reports: Hypothyroidism Oncologic (Cancer) History: Reports: Other (See Below) Other Oncologic History: kidney - Infectious Disease History Infectious Disease History: Reports: Novel Coronavirus - Past Surgical History HEENT Surgical History: Reports: Cataract Surgery Endocrine Surgical History: Reports: None Musculoskeletal Surgical History: Reports: None - SUBSTANCE USE Recreational Drug Use History: No - HOME MEDS Home Medications: Home Meds Albuterol Sulfate [Proair Respiclick] 1 puff IH Q4H PRN 02/23/17 [History] Furosemide [Lasix] 40 mg PO DAILY 02/23/17 [History] Levothyroxine [Synthroid] 112 mcg PO DAILY 02/23/17 [History] Sertraline [Zoloft] 25 mg PO BEDTIME 02/23/17 [History] Simvastatin [Zocor] 5 mg PO BEDTIME 02/23/17 [History] Clopidogrel [Plavix] 75 mg PO DAILY #30 tablet 02/28/17 [Rx] Famotidine [Pepcid] 20 mg PO DAILY #30 tablet 02/28/17 [Rx] Nitroglycerin [IJP: Nitroglycerin] 0.4 mg SL Q5M PRN #30 tablet, sublingual 02/28/17 [Rx] Albuterol Sulfate [Proair Respiclick] 1 puff INH BID 12/24/19 [History] Bacitracin [Bacitracin Oint] 1 applic TOP DAILY 12/24/19 [History] Docusate Sodium/Sennosides [Senna Plus] 1 tab PO BID PRN 12/24/19 [History] Furosemide [Lasix] 60 mg PO DAILY 12/24/19 [History] Metoprolol Succinate [Toprol XL 50mg] 50 mg PO DAILY 12/24/19 [History] dexAMETHasone [Dexamethasone] 3 mg PO BID #20 tablet 12/24/19 [Rx] - CURRENT (IN HOUSE) MEDS Current Meds: Current Medications Ceftriaxone Sodium 2 gm/ (Sodium Chloride) 100 mls @ 200 mls/hr IV Q24H RIAZ Last Admin: 01/11/20 17:03 Dose: 200 mls/hr Documented by: Discontinued Medications Bupivacaine HCl/Epinephrine Bitart (Marcaine 0.5%/Epinephrine 1:200,000) Confirm Administered Dose 50 ml .ROUTE .STK-MED ONE Stop: 01/11/20 18:20 Ephedrine Sulfate (Ephedrine Sulfate) Confirm Administered Dose 50 mg .ROUTE .STK-MED ONE Stop: 01/11/20 19:28 Fentanyl (Sublimaze) Confirm Administered Dose 100 mcg .ROUTE .STK-MED ONE Stop: 01/11/20 18:05 Lidocaine HCl (Xylocaine-Mpf 1%) Confirm Administered Dose 4 mls @ as directed .ROUTE .STK-MED ONE Stop: 01/11/20 18:04 Propofol (Diprivan 20 Ml) Confirm Administered Dose 200 mg .ROUTE .STK-MED ONE Stop: 01/11/20 18:04 Propofol (Diprivan 20 Ml) Confirm Administered Dose 200 mg .ROUTE .STK-MED ONE Stop: 01/11/20 19:20
[2020-01-11] MEDS ORDERED: fentaNYL 100 MCG/2 ML SDV IVPUSH PRN (20:20)
--- NOTE | 2020-01-11 20:20 | PCM.POSTAN ---
POST ANESTHESIA ASSESSMENT - MENTAL STATUS Mental Status: Somnolent - VITAL SIGNS Vital Signs: Last Vital Signs Temp 36.3 C 01/11/20 13:15 Pulse 94 01/11/20 18:11 Resp 20 01/11/20 18:11 BP 114/64 01/11/20 18:11 Pulse Ox 98 01/11/20 18:11 - RESPIRATORY Respiratory Status: Airway Patent, O2 Saturation Stable, Supplemental Oxygen - CARDIOVASCULAR CV Status: Pulse Rate WNL (difficult to tell whether patient is having sinus dysrhythmia or controlled a-fib - ordering 12 lead), Blood Pressure Stable - POST OP HYDRATION Hydration Status: Adequate & Stable - OBSERVATIONS Free Text/Narrative:: Challenging but uneventful MAC anesthetic. Transferred to Room #24 with handoff to MIKE Hdz. VSS, SV, confused (baseline). Will obtain 12 lead EKG to rule out a- fib versus PACs versus atrial dysrhythmia.
--- NOTE | 2020-01-11 20:25 | PCM.PRNOTE ---
- Free Text/Narrative Note: Operative Report Date: 01/11/2020 Operation: wound debridement Diagnosis: infected sacral decubitus ulcer Surgeon: Jordon Jaramillo MD Findings: necrotic, foul smelling decubitus ulcer with soft tissue tracking toward the rectum and superiorly. Following sharp debridement, the wound measured 10 cm long x 6 cm wide x 4 cm deep, down to the level of periosteum. Detailed Report: The patient was taken to the OR and placed in right lateral decubitus position. Time out was performed and monitored anesthesia care initiated. The wound was prepped with iodine and draped. Necrotic tissue spanning the opening of the wound was debrided sharply with scissors. Beneath a layer of black, soft necrotic tissue was healthy appearing vascularized subcutaneous fat. The wound cavity was cored out using monopolar energy. With digital exploration there was noted to be extensive tracking in the subcutaneous space. Skin and subcutaneous tissue were debrided sharply, down to the level of the sacral periosteum. The wound tracked to the distal rectum and superiorly to the lumbar area. After sharp debridement, the final wound measured 10 x 6 x 4 cm. Although additional debridement may have been indicated given the palpable extent of involvement, I felt this would leave an extensive wound in a patient who would be unlikely to be able to heal it. The wound was irrigated thoroughly with sterile saline and dressed with a wound vac.
[2020-01-11] MEDS: Acetaminophen 325 MG Tab PO SCH (21:11)
[2020-01-11] MEDS: Sertraline 25 MG Tab PO SCH (21:14)
[2020-01-11] MEDS: Simvastatin 10 MG Tab PO SCH (21:14)
[2020-01-11] MEDS: Albuterol 6.7 GM Inhaler INH SCH (22:31)
[2020-01-11] MEDS: Dexamethasone 1 MG/ML Oral Drops 30 ML Bottle PO SCH (23:10)
[2020-01-12] MEDS: metroNIDAZOLE/Normal Saline 500 MG in Premix Bag 1 BAG IV SCH ×3 (00:41→15:42)
[2020-01-12] MEDS: Acetaminophen 325 MG Tab PO SCH ×3 (06:01→20:11)
[2020-01-12] MEDS: Albuterol 6.7 GM Inhaler INH SCH ×2 (08:04→20:43)
[2020-01-12] MEDS: Clopidogrel 75 MG Tab PO SCH (08:14)
[2020-01-12] MEDS: Famotidine 20 MG Tab PO SCH (08:14)
[2020-01-12] MEDS: Metoprolol Succinate 50 MG Tab.ER PO SCH (08:14)
[2020-01-12] MEDS: Furosemide 40 MG Tab PO SCH (08:14)
[2020-01-12] MEDS: Levothyroxine 112 MCG Tab PO SCH (08:14)
[2020-01-12] MEDS: Dexamethasone 1 MG/ML Oral Drops 30 ML Bottle PO SCH (08:15)
[2020-01-12] MEDS: Dexamethasone 4 MG Tab PO SCH (08:38)
[2020-01-12] MEDS: Sodium Chloride 0.9% 1,000 ML IV SCH (08:38)
--- NOTE | 2020-01-12 08:56 | PCM.SN.2 ---
- Free Text/Narrative Note: POD 1 s/p debridement and wound vac for infected sacral decubitus ulcer. S: no complaints this morning, no issues overnight O: AF-VSS- converted from rate-controlled a fib last night to normal sinus rhythm Awake and interacting with family, no distress Wound vac with minimal maroon colored drainage in canister Overall labs looking okay, but WBC still elevated at 22,000, down from 24,000 A: Elderly, frail woman with evidence of dementia, CHF, COPD, CKD, recent COVID with current PCR testing still positive, obesity, in assisted living presented with newly discovered extensive, infected sacral decubitus ulcer. Debridement in OR revealed extensive disease and it seems to me that she is unlikely to be able to successfully heal such a massive wound. I talked with her son and daughter this morning about findings in the OR and my concern for her chances for a meaningful recovery. However, she appears to be doing okay at the moment. P: Continue broad spectrum IV antibiotics. Plan for second look at wound in OR tomorrow. Prior to any extensive debridement, if indicated based on findings in OR, I will discuss with family again and clarify goals of care. -morphine 0.5 mg 14h prn pain. scheduled tylenol -continue all home medications -OOB ambulating with assistance if possible -NS @ 50 cc/hr. Patient is at high risk for fluid overload/ CHF exacerbation -regular diet as tolerated. NPO after midnight in preparation for OR -IV vancomycin, cefepime, flagyl -SCDs. Hold prophylactic heparin as patient takes plavix, which can be continued for now -DNR
--- NOTE | 2020-01-12 11:13 | PCM48HPAN ---
Post Anesthesia Note - EVALUATION WITHIN 48HRS OF ANESTHETIC Vital Signs in Normal Range: Yes Patient Participated in Evaluation: No Respiratory Function Stable: Yes Airway Patent: Yes Cardiovascular Function Stable: Yes Hydration Status Stable: Yes Pain Control Satisfactory: Yes Nausea and Vomiting Control Satisfactory: Yes Mental Status Recovered: Yes (baseline) Vital Signs: Last Vital Signs Temp 36.8 C 01/12/20 08:13 Pulse 74 01/12/20 08:14 Resp 22 H 01/12/20 08:13 BP 119/64 01/12/20 08:14 Pulse Ox 95 01/12/20 08:13 - COMMENTS/OBSERVATIONS Free Text/Narrative:: Patient has wound vac in place. No longer in atrial fibrillation per ICU nursing. The goal is to keep the patient comfortable and see whether the family wants to continue pursuing care of this wound. Dr. Jaramillo wants to re-assess the wound tomorrow in the OR with possible further debridement. No additional concerns for me at this time. Renal function marginally improved from labs yesterday. Mild dip in hemoglobin that is not concerning at this time.
[2020-01-12] MEDS: Morphine 2 MG/ML SYRINGE IVPUSH PRN ×2 (11:30→23:03)
[2020-01-12] MEDS: Cefepime 2 GM in Premix Bag 1 BAG IV SCH (19:48)
[2020-01-12] MEDS: Simvastatin 10 MG Tab PO SCH (20:11)
[2020-01-12] MEDS: Sertraline 25 MG Tab PO SCH (20:12)
[2020-01-13] MEDS: metroNIDAZOLE/Normal Saline 500 MG in Premix Bag 1 BAG IV SCH ×3 (00:17→15:29)
[2020-01-13] MEDS: Acetaminophen 325 MG Tab PO SCH ×3 (04:08→20:45)
[2020-01-13] MEDS: Sodium Chloride 0.9% 1,000 ML IV SCH (04:41)
[2020-01-13] MEDS ORDERED: Bupivacaine 0.5%/EPINEPHrine 1:200,000 50 ML MDV ONE (07:46)
[2020-01-13] MEDS ORDERED: Lidocaine 1% 2 ML ONE (07:52)
[2020-01-13] MEDS ORDERED: Propofol 200 MG/20 ML SDV ONE (07:52)
[2020-01-13] MEDS ORDERED: fentaNYL 100 MCG/2 ML SDV ONE (07:52)
[2020-01-13] MEDS: Famotidine 20 MG Tab PO SCH (07:59)
[2020-01-13] MEDS: Clopidogrel 75 MG Tab PO SCH (07:59)
[2020-01-13] MEDS: Metoprolol Succinate 50 MG Tab.ER PO SCH (07:59)
[2020-01-13] MEDS: Dexamethasone 4 MG Tab PO SCH (07:59)
[2020-01-13] MEDS: Levothyroxine 112 MCG Tab PO SCH (07:59)
[2020-01-13] MEDS: Furosemide 40 MG Tab PO SCH (07:59)
--- NOTE | 2020-01-13 08:07 | PCM.PREANE ---
Preanesthetic Assessment - Procedure Proposed Procedure: Sacral decubitus ulcer debridement #2 - Anesthesia/Transfusion/Family Hx Anesthesia History: Prior Anesthesia Without Reaction Transfusion History: Unknown - Review of Systems General: Weakness Pulmonary: No Symptoms, Other (COPD) Cardiovascular: No Symptoms, Other (Hx atrial fibrillation) Gastrointestinal: No Symptoms Neurological: Confusion Other: Reports: None (Covid +) - Physical Assessment NPO Status Date: 01/11/20 (greater than 8 hours) Vital Signs: Last Vital Signs Temp 36.5 C 01/13/20 07:47 Pulse 64 01/13/20 07:59 Resp 22 H 01/13/20 07:47 BP 109/59 L 01/13/20 07:59 Pulse Ox 91 L 01/13/20 07:47 Height: 5 ft 3 in Weight: 109.769 kg ASA Class: 4 Mental Status: Other (Confused. Responds to some commands.) Dentition: Reports: Edentulous ROM/Head Extension: Other (unable to assess airway well due to patient's inability to answer appropriately) Lungs: Clear to Auscultation, Normal Respiratory Effort Cardiovascular: Regular Rate, Regular Rhythm - Lab Values: Laboratory Last Values WBC 22.29 K/mm3 (3.98-10.04) H 01/12/20 05:57 RBC 3.43 M/mm3 (3.98-5.22) L 01/12/20 05:57 Hgb 10.3 gm/dl (11.2-15.7) L 01/12/20 05:57 Hct 33.4 % (34.1-44.9) L 01/12/20 05:57 MCV 97.4 fl (79.4-94.8) H 01/12/20 05:57 MCH 30.0 pg (25.6-32.2) 01/12/20 05:57 MCHC 30.8 g/dl (32.2-35.5) L 01/12/20 05:57 RDW Std Deviation 43.7 fL (36.4-46.3) 01/12/20 05:57 Plt Count 225 K/mm3 (182-369) 01/12/20 05:57 MPV 11.9 fl (9.4-12.3) 01/12/20 05:57 Neut % (Auto) 90.0 % (34.0-71.1) H 01/12/20 05:57 Lymph % (Auto) 3.7 % (19.3-51.7) L 01/12/20 05:57 Haines % (Auto) 5.5 % (4.7-12.5) 01/12/20 05:57 Eos % (Auto) 0.1 (0.7-5.8) L 01/12/20 05:57 Baso % (Auto) 0.1 % (0.1-1.2) 01/12/20 05:57 Neut # (Auto) 20.06 K/mm3 (1.56-6.13) H 01/12/20 05:57 Lymph # (Auto) 0.83 K/mm3 (1.18-3.74) L 01/12/20 05:57 Haines # (Auto) 1.23 K/mm3 (0.24-0.36) H 01/12/20 05:57 Eos # (Auto) 0.02 K/mm3 (0.04-0.36) L 01/12/20 05:57 Baso # (Auto) 0.02 K/mm3 (0.01-0.08) 01/12/20 05:57 Manual Slide Review Abnormal smear 01/12/20 05:57 Sodium 140 mEq/L (136-145) 01/12/20 05:57 Potassium 3.7 mEq/L (3.5-5.1) 01/12/20 05:57 Chloride 102 mEq/L (98-107) 01/12/20 05:57 Carbon Dioxide 31 mEq/L (21-32) 01/12/20 05:57 Anion Gap 10.7 (5-15) 01/12/20 05:57 BUN 28 mg/dL (7-18) H 01/12/20 05:57 Creatinine 1.2 mg/dL (0.55-1.02) H 01/12/20 05:57 Est Cr Clr Drug Dosing 27.32 mL/min 01/12/20 05:57 Estimated GFR (MDRD) 42 mL/min (>60) 01/12/20 05:57 BUN/Creatinine Ratio 23.3 (14-18) H 01/12/20 05:57 Glucose 153 mg/dL (83-115) H 01/12/20 05:57 Lactic Acid 1.8 mmol/L (0.4-2.0) 01/11/20 15:27 Calcium 8.6 mg/dL (8.5-10.1) 01/12/20 05:57 Total Bilirubin 1.3 mg/dL (0.2-1.0) H 01/11/20 14:33 AST 71 U/L (15-37) H 01/11/20 14:33 ALT 74 U/L (14-59) H 01/11/20 14:33 Alkaline Phosphatase 136 U/L (46-116) H 01/11/20 14:33 C-Reactive Protein 35.4 mg/dL (<1.0) H* 01/11/20 14:33 Total Protein 6.6 g/dl (6.4-8.2) 01/11/20 14:33 Albumin 1.7 g/dl (3.4-5.0) L 01/11/20 14:33 Globulin 4.9 gm/dL 01/11/20 14:33 Albumin/Globulin Ratio 0.4 (1-2) L 01/11/20 14:33 SARS-CoV-2 RNA (IRA) Positive (NEGATIVE) H 01/11/20 17:20 MRSA (PCR) 01/12/20 13:00 - Allergies Allergies/Adverse Reactions: Allergies Allergy/AdvReac Type Severity Reaction Status Date / Time No Known Allergies Allergy Verified 01/11/20 21:34 - Anesthesia Plan Pre-Op Medication Ordered: Antacids, Beta Farrah Beta Farrah: Metoprolol Med Last Dose Date: 01/13/20 Med Last Dose Time: 07:59 - Acknowledgements Anesthesia Type Planned: MAC Pt an Appropriate Candidate for the Planned Anesthesia: Yes Alternatives and Risks of Anesthesia Discussed w Pt/Guardian: Yes Pt/Guardian Understands and Agrees with Anesthesia Plan: Yes PreAnesthesia Questionnaire HEENT History: Reports: Cataract Other HEENT History: exotropia, myopia L eye, astigmatism bilaterally, presbyopia, strabismic amblyopia L eye Cardiovascular History: Reports: High Cholesterol, Hypertension Other Cardiovascular History: venous insufficiency, NSTEMI Respiratory History: Reports: COPD Gastrointestinal History: Reports: Chronic Constipation Genitourinary History: Reports: Chronic Renal Insuffiency, UTI, Recurrent Other Genitourinary History: Kidney cancer. Kidney was removed on the left side. 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: Musculoskeletal History: Reports: None Neurological History: Reports: Other (See Below) Other Neuro History: generalized weakness Psychiatric History: Reports: Depression Endocrine/Metabolic History: Reports: Hypothyroidism Oncologic (Cancer) History: Reports: Other (See Below) Other Oncologic History: kidney Dermatologic History: Reports: Decubitus Ulcer - Infectious Disease History Infectious Disease History: Reports: Novel Coronavirus Other Infectious Disease History: covid positive 12/21/2019 - Past Surgical History HEENT Surgical History: Reports: Cataract Surgery Endocrine Surgical History: Reports: None Musculoskeletal Surgical History: Reports: None - SUBSTANCE USE Smoking Status *Q: Unknown Ever Smoked Second Hand Smoke Exposure: No Recreational Drug Use History: No - HOME MEDS Home Medications: Home Meds Albuterol Sulfate [Proair Respiclick] 1 puff IH Q4H PRN 02/23/17 [History] Furosemide [Lasix] 40 mg PO DAILY 02/23/17 [History] Levothyroxine [Synthroid] 112 mcg PO DAILY 02/23/17 [History] Sertraline [Zoloft] 25 mg PO BEDTIME 02/23/17 [History] Simvastatin [Zocor] 5 mg PO BEDTIME 02/23/17 [History] Clopidogrel [Plavix] 75 mg PO DAILY #30 tablet 02/28/17 [Rx] Famotidine [Pepcid] 20 mg PO DAILY #30 tablet 02/28/17 [Rx] Nitroglycerin [IJP: Nitroglycerin] 0.4 mg SL Q5M PRN #30 tablet, sublingual 02/28/17 [Rx] Albuterol Sulfate [Proair Respiclick] 1 puff INH BID 12/24/19 [History] Bacitracin [Bacitracin Oint] 1 applic TOP DAILY 12/24/19 [History] Docusate Sodium/Sennosides [Senna Plus] 1 tab PO BID PRN 12/24/19 [History] Furosemide [Lasix] 60 mg PO DAILY 12/24/19 [History] Metoprolol Succinate [Toprol XL 50mg] 50 mg PO DAILY 12/24/19 [History] dexAMETHasone [Dexamethasone] 3 mg PO BID #20 tablet 12/24/19 [Rx] - CURRENT (IN HOUSE) MEDS Current Meds: Current Medications Acetaminophen (Tylenol) 975 mg PO Q8H RIAZ Last Admin: 01/13/20 04:08 Dose: 975 mg Documented by: Albuterol (Proventil Hfa) 0 gm INH Q4H PRN PRN Reason: short of breath Albuterol (Proventil Hfa) 0 gm INH BID [facility] Last Admin: 01/12/20 20:43 Dose: 1 puff Documented by: Clopidogrel Bisulfate (Plavix) 75 mg PO DAILY [facility] Last Admin: 01/13/20 07:59 Dose: 75 mg Documented by: Dexamethasone (Dexamethasone) 6 mg PO DAILY [facility] Last Admin: 01/13/20 07:59 Dose: 6 mg Documented by: Famotidine (Pepcid) 20 mg PO DAILY [facility] Last Admin: 01/13/20 07:59 Dose: 20 mg Documented by: Fentanyl (Sublimaze) 50 mcg IVPUSH Q5M PRN PRN Reason: Pain Furosemide (Lasix) 40 mg PO DAILY [facility] Last Admin: 01/13/20 07:59 Dose: 40 mg Documented by: Sodium Chloride (Normal Saline) 1,000 mls @ 50 mls/hr IV ASDIRECTED [facility] Last Admin: 01/13/20 04:41 Dose: 50 mls/hr Documented by: Vancomycin HCl 1 gm/ Sodium (Chloride) 250 mls @ 250 mls/hr IV Q24H [facility] Last Admin: 01/12/20 20:19 Dose: 250 mls/hr Documented by: Metronidazole 500 mg/ Premix 100 mls @ 100 mls/hr IV Q8H [facility] Last Admin: 01/13/20 07:40 Dose: 100 mls/hr Documented by: Cefepime HCl 2 gm/ Premix 50 mls @ 100 mls/hr IV Q24H [facility] Last Admin: 01/12/20 19:48 Dose: 100 mls/hr Documented by: Influenza Virus Vaccine (Pharmacy To Dose - Influenza Vaccine) 1 each IM DAILY [facility] Last Admin: 01/13/20 08:00 Dose: Not Given Documented by: Levothyroxine Sodium (Levothyroxine) 112 mcg PO DAILY [facility] Last Admin: 01/13/20 07:59 Dose: 112 mcg Documented by: Metoprolol Succinate (Toprol Xl) 50 mg PO DAILY [facility] Last Admin: 01/13/20 07:59 Dose: 50 mg Documented by: Morphine Sulfate (Morphine) 0.5 mg IVPUSH Q4H PRN PRN Reason: Pain (severe 7-10) Last Admin: 01/12/20 23:03 Dose: 0.5 mg Documented by: Nitroglycerin (Nitrostat) 0.4 mg SL Q5M PRN PRN Reason: Chest Pain Senna/Docusate Sodium (Senna Plus) 1 tab PO BID PRN PRN Reason: Constipation Sertraline HCl (Zoloft) 25 mg PO BEDTIME [facility] Last Admin: 01/12/20 20:12 Dose: 25 mg Documented by: Simvastatin (Zocor) 5 mg PO BEDTIME [facility] Last Admin: 01/12/20 20:11 Dose: 5 mg Documented by: Discontinued Medications Bupivacaine HCl/Epinephrine Bitart (Marcaine 0.5%/Epinephrine 1:200,000) Confirm Administered Dose 50 ml .ROUTE .STK-MED ONE Stop: 01/11/20 18:20 Bupivacaine HCl/Epinephrine Bitart (Marcaine 0.5%/Epinephrine 1:200,000) Confirm Administered Dose 50 ml .ROUTE .STK-MED ONE Stop: 01/13/20 07:47 Dexamethasone (Dexamethasone Intensol) 3 mg PO BID [facility] Last Admin: 01/12/20 08:15 Dose: Not Given Documented by: Ephedrine Sulfate (Ephedrine Sulfate) Confirm Administered Dose 50 mg .ROUTE .STK-MED ONE Stop: 01/11/20 19:28 Fentanyl (Sublimaze) Confirm Administered Dose 100 mcg .ROUTE .STK-MED ONE Stop: 01/11/20 18:05 Fentanyl (Sublimaze) Confirm Administered Dose 100 mcg .ROUTE .STK-MED ONE Stop: 01/13/20 07:53 Ceftriaxone Sodium 2 gm/ (Sodium Chloride) 100 mls @ 200 mls/hr IV Q24H [facility] Last Admin: 01/11/20 17:03 Dose: 200 mls/hr Documented by: Lidocaine HCl (Xylocaine-Mpf 1%) Confirm Administered Dose 4 mls @ as directed .ROUTE .STK-MED ONE Stop: 01/11/20 18:04 Cefepime HCl 1 gm/ Premix 50 mls @ 100 mls/hr IV Q24H [facility] Last Admin: 01/11/20 20:59 Dose: 100 mls/hr Documented by: Lidocaine HCl (Xylocaine-Mpf 1%) Confirm Administered Dose 2 mls @ as directed .ROUTE .STK-MED ONE Stop: 01/13/20 07:53 Propofol (Diprivan 20 Ml) Confirm Administered Dose 200 mg .ROUTE .STK-MED ONE Stop: 01/11/20 18:04 Propofol (Diprivan 20 Ml) Confirm Administered Dose 200 mg .ROUTE .STK-MED ONE Stop: 01/11/20 19:20 Propofol (Diprivan 20 Ml) Confirm Administered Dose 200 mg .ROUTE .STK-MED ONE Stop: 01/13/20 07:53
[2020-01-13] MEDS: Albuterol 6.7 GM Inhaler INH SCH ×2 (08:11→20:27)
--- NOTE | 2020-01-13 08:42 | PCM.SN.2 ---
- Free Text/Narrative Note: POD 2 s/p debridement and wound vac for infected sacral decubitus ulcer. S: no complaints this morning, no issues overnight O: AF-VSS Awake and interacting with family, no distress Wound vac with minimal maroon colored drainage in canister A: Elderly, frail woman with evidence of dementia, CHF, COPD, CKD, recent COVID with current PCR testing still positive, obesity, in assisted living presented with newly discovered extensive, infected sacral decubitus ulcer. Debridement in OR revealed extensive disease and it seems to me that she is unlikely to be able to successfully heal such a massive wound. I talked with her son and daughter this morning about findings in the OR and my concern for her chances for a meaningful recovery. However, she appears to be doing okay at the moment. P: Continue broad spectrum IV antibiotics. Plan for second look at wound in OR this morning. I talked about possible scenarios and treatment options with her daughter this morning, and we will not plan for any extensive debridement, but rather do a dressing change and get a sense of whether the wound is looking better, worse or same. -morphine 0.5 mg q 4h prn pain. scheduled tylenol -continue all home medications -OOB ambulating with assistance if possible -NS @ 50 cc/hr. Patient is at high risk for fluid overload/ CHF exacerbation, has been net even since arrival. -regular diet as tolerated after OR -IV vancomycin, cefepime, flagyl -SCDs. Hold prophylactic heparin as patient takes plavix, which can be continued for now -DNR
--- NOTE | 2020-01-13 09:33 | PCM.PRNOTE ---
- Free Text/Narrative Note: Operative Report Date: 01/13/2020 Operation: wound debridement Diagnosis: infected sacral decubitus ulcer Surgeon: Jordon Jaramillo MD Findings: foul smelling wound with additional necrotic tissue in the wound base, not too much worse than how it looked at the end of debridement two days ago. The wound measured 10 cm long x 6 cm wide x 4 cm deep, down to the level of periosteum. Detailed Report: The patient was taken to the OR and placed in right lateral decubitus position. Time out was performed and monitored anesthesia care initiated. The wound was scrubbed thoroughly and prepped with iodine and draped. There was additional black liquified necrotic debris, mostly in the left lateral portion of the woun d. The wound cavity was cored out using monopolar energy, removing approximately an additional 5 cm^3. Tracking areas were irrigated with sterile saline. A smaller satellite ulcerative lesion on the left buttock measuring about 6 x 2 cm explored; the overlying eschar was sharply removed and underlying tissue appeared pale and yellow without clear necrosis or pus. The central wound was irrigated thoroughly with sterile saline and dressed with a wound vac. The patient tolerated the procedure well.
--- NOTE | 2020-01-13 09:35 | PCM.POSTAN ---
POST ANESTHESIA ASSESSMENT - MENTAL STATUS Mental Status: Alert - VITAL SIGNS Vital Signs: Last Vital Signs Temp 36.5 C 01/13/20 07:47 Pulse 64 01/13/20 07:59 Resp 22 H 01/13/20 07:47 BP 109/59 L 01/13/20 07:59 Pulse Ox 91 L 01/13/20 07:47 - RESPIRATORY Respiratory Status: Airway Patent, O2 Saturation Stable, Supplemental Oxygen (tachypnea at baseline) - CARDIOVASCULAR CV Status: Pulse Rate WNL (difficult to tell whether patient is having sinus dysrhythmia or controlled a-fib - ordering 12 lead), Blood Pressure Stable - POST OP HYDRATION Hydration Status: Adequate & Stable - OBSERVATIONS Free Text/Narrative:: Patient is resting. Arousable. Unable to obtain numeric pain score due to patien t's dementia. Appears non-distressed.
[2020-01-13] MEDS: Morphine 2 MG/ML SYRINGE IVPUSH PRN (13:04)
[2020-01-13] MEDS: Cefepime 2 GM in Premix Bag 1 BAG IV SCH (20:40)
[2020-01-13] MEDS: Simvastatin 10 MG Tab PO SCH (20:41)
[2020-01-13] MEDS: Sertraline 25 MG Tab PO SCH (20:42)
[2020-01-14] MEDS: metroNIDAZOLE/Normal Saline 500 MG in Premix Bag 1 BAG IV SCH ×3 (00:36→16:09)
--- NOTE | 2020-01-14 07:52 | PCM48HPAN ---
Post Anesthesia Note - EVALUATION WITHIN 48HRS OF ANESTHETIC Vital Signs in Normal Range: Yes Patient Participated in Evaluation: Yes Respiratory Function Stable: Yes Airway Patent: Yes Cardiovascular Function Stable: Yes Hydration Status Stable: Yes Pain Control Satisfactory: Yes Nausea and Vomiting Control Satisfactory: Yes Mental Status Recovered: Yes Vital Signs: Last Vital Signs Temp 36.2 C 01/14/20 04:00 Pulse 64 01/13/20 07:59 Resp 16 01/14/20 04:00 BP 116/56 L 01/14/20 04:00 Pulse Ox 94 L 01/14/20 05:25 - COMMENTS/OBSERVATIONS Free Text/Narrative:: no anesthesia complications noted
[2020-01-14] MEDS ORDERED: FLU Vacc QV2020-21(65YR UP)/PF 240 MCG/0.7 ML Syringe IM ONE (10:00)
[2020-01-14] MEDS: Albuterol 6.7 GM Inhaler INH SCH ×2 (10:11→20:46)
[2020-01-14] MEDS: Acetaminophen 325 MG Tab PO SCH ×3 (10:19→17:54)
[2020-01-14] MEDS: Metoprolol Succinate 50 MG Tab.ER PO SCH (10:20)
[2020-01-14] MEDS: Dexamethasone 4 MG Tab PO SCH (10:21)
[2020-01-14] MEDS: Levothyroxine 112 MCG Tab PO SCH (10:21)
[2020-01-14] MEDS: Clopidogrel 75 MG Tab PO SCH (10:22)
[2020-01-14] MEDS: Famotidine 20 MG Tab PO SCH (10:22)
[2020-01-14] MEDS: Furosemide 40 MG Tab PO SCH (10:22)
[2020-01-14] MEDS: Morphine 2 MG/ML SYRINGE IVPUSH PRN ×2 (11:47→16:05)
[2020-01-14] MEDS ORDERED: Morphine 2 MG/ML SYRINGE IVPUSH ONE (15:10)
[2020-01-14] MEDS: Cefepime 2 GM in Premix Bag 1 BAG IV SCH (20:13)
[2020-01-14] MEDS: Sertraline 25 MG Tab PO SCH (20:20)
[2020-01-14] MEDS: Simvastatin 10 MG Tab PO SCH (20:20)
[2020-01-15] MEDS: Sodium Chloride 0.9% 1,000 ML IV SCH ×2 (00:04→19:20)
[2020-01-15] MEDS: metroNIDAZOLE/Normal Saline 500 MG in Premix Bag 1 BAG IV SCH ×3 (00:05→17:18)
[2020-01-15] MEDS: Acetaminophen 325 MG Tab PO SCH ×3 (01:57→17:20)
[2020-01-15] MEDS: Albuterol 6.7 GM Inhaler INH SCH ×2 (08:09→20:51)
[2020-01-15] MEDS: Levothyroxine 112 MCG Tab PO SCH (10:43)
[2020-01-15] MEDS: Furosemide 40 MG Tab PO SCH (10:43)
[2020-01-15] MEDS: Famotidine 20 MG Tab PO SCH (10:44)
[2020-01-15] MEDS: Clopidogrel 75 MG Tab PO SCH (10:46)
[2020-01-15] MEDS: Metoprolol Succinate 50 MG Tab.ER PO SCH (10:46)
[2020-01-15] MEDS: Dexamethasone 4 MG Tab PO SCH (10:47)
--- NOTE | 2020-01-15 12:14 | PCM.SN.2 ---
- Free Text/Narrative Note: POD 1 s/p repeat debridement and wound vac dressing for infected sacral decubitus ulcer. S: no complaints of pain, sitting up eating breakfast O: AF-VSS WBC down to 16,000 Wound vac with thin black fluid draining A: Overall doing pretty well after repeat debridement, though the wound is extensive and there is likely some additional nonviable tissue extending beyond the open wound. After long talk with patient's family, we agree to forego any additional aggressive surgical debridement as she already has a substantial wound that will be a challenge to heal. Continue IV antibiotics; due to involvement of sacral periosteum will plan for 6 weeks of antibiotic treatment and patient will need to get a PICC line. 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 P: continue current treatment. Plan for bedside wound vac change and wound re- evaluation tomorrow. Will discuss PICC placement with anesthesia team.
--- NOTE | 2020-01-15 12:16 | PCM.SN.2 ---
- Free Text/Narrative Note: POD 2 s/p repeat debridement and wound vac dressing for infected sacral decubitus ulcer. S: no complaints of pain, resting comfortably O: AF-VSS Wound vac with thin black fluid draining A: Overall doing pretty well after repeat debridement, though the wound is extensive and there is likely some additional nonviable tissue extending beyond the open wound. After long talk with patient's family, we agree to forego any additional aggressive surgical debridement as she already has a substantial wound that will be a challenge to heal. Continue IV antibiotics; due to involvement of sacral periosteum will plan for 6 weeks of antibiotic treatment and patient will need to get a PICC line. Anticipate discharge to [facility] for rn long term care wound care. P: continue current treatment. Plan for bedside wound vac change and wound re- evaluation tomorrow. Will discuss PICC placement with anesthesia team.
[2020-01-15] MEDS: Cefepime 2 GM in Premix Bag 1 BAG IV SCH (20:19)
[2020-01-15] MEDS: Sertraline 25 MG Tab PO SCH (20:21)
[2020-01-15] MEDS: Simvastatin 10 MG Tab PO SCH (20:24)
[2020-01-16] MEDS: metroNIDAZOLE/Normal Saline 500 MG in Premix Bag 1 BAG IV SCH ×3 (00:44→22:26)
[2020-01-16] MEDS: Acetaminophen 325 MG Tab PO SCH ×3 (01:02→18:37)
[2020-01-16] MEDS: Albuterol 6.7 GM Inhaler INH SCH ×2 (08:25→21:15)
--- NOTE | 2020-01-16 08:48 | PCM.SN.2 ---
- Free Text/Narrative Note: POD 3 s/p debridement of infected sacral decubitus ulcer S: soiling wound vac dressing with loose stool, fecal management system placed. No acute events otherwise. O: AF, stable bradycardia with rate 50 bpm, normal BP, 95% SpO2 on 2 L NC< no tachypnea Wound vac with thin black fluid draining A: Extensive soft tissue defect after debridement of infected sacral decubitus ulcer. Clinically stable since debridement, on IV antibiotics including vancomycin, cefepime, flagyl. Wound cultures from ER growing Proteus, E coli, gram + anaerobes. No significant additional surgical debridement planned after discussion of goals of care with family. P: PICC line placement today in anticipation of discharge to [facility] soon for continuing wound care. Plan for wound vac change at bedside today with reassessment of wound. *This patient has required greater than 96 hours inpatient hospitalization due to extensive necrotizing soft tissue infection stemming from sacral decubitus ulcer which required operative debridement, IV antibiotics, complex wound care/ Wound vac dressing, labs, and monitoring.
[2020-01-16] MEDS: Furosemide 40 MG Tab PO SCH (10:15)
[2020-01-16] MEDS: Famotidine 20 MG Tab PO SCH (10:15)
[2020-01-16] MEDS: Clopidogrel 75 MG Tab PO SCH (10:15)
[2020-01-16] MEDS: Dexamethasone 4 MG Tab PO SCH (10:16)
[2020-01-16] MEDS: Levothyroxine 112 MCG Tab PO SCH (10:16)
[2020-01-16] MEDS: Metoprolol Succinate 50 MG Tab.ER PO SCH (10:17)
[2020-01-16] MEDS: Morphine 2 MG/ML SYRINGE IVPUSH PRN ×2 (12:13→15:14)
[2020-01-16] MEDS: Sodium Chloride 0.9% 1,000 ML IV SCH (16:35)
--- NOTE | 2020-01-16 16:48 | PCM.SN.2 ---
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 Jordon Jaramillo. Used [employer] NXT ClearVue Catheter, reference [id number], Lot [id number], Exp 05/04/21. Time out in room 21 in acute care at 1528. Prior to timeout, RN treated patient with 0.5 mg of IV Morphine for mild sedation to good effect. Right proximal basilic vein located under ultrasound scan with linear probe. Patient was then draped and prepped with chlorhexidine x 2 to dry, sterile gown, gloves, cap and mask per kit. 3 ml of 1% lidocaine skin wheel in subcutaneous tissue. 20 gauge angiocath out of plane with ultrasound in sterile sock x1 attempt. Wire threaded via Seldinger technique and skin was nicked with a sterile blade. Introducer catheter threaded easily, then PICC catheter was threaded easily. Images captured and read by radiology, tip in superior vena cava, 42 cm at skin. Wire then removed from PICC, catheter was trimmed at 50 cm. Catheter was then dressed with tegaderm, biofilm, and statlock. Catheter flushed with 20 ml of sterile normal saline and draws heme easily. 32 cm circumference at insertion site. Patient was then repositioned with nursing at bedside. No concerns at this time, patient remained verbal and cooperative throughout. <Jairon Denton - Last Filed: 01/16/20 17:02> - Free Text/Narrative Note: Case time from 1528 to 1619.
[2020-01-16] MEDS: Cefepime 2 GM in Premix Bag 1 BAG IV SCH (19:40)
[2020-01-16] MEDS: Simvastatin 10 MG Tab PO SCH (20:50)
[2020-01-16] MEDS: Sertraline 25 MG Tab PO SCH (20:50)
[2020-01-17] MEDS: Acetaminophen 325 MG Tab PO SCH ×3 (02:17→18:18)
[2020-01-17] MEDS: metroNIDAZOLE/Normal Saline 500 MG in Premix Bag 1 BAG IV SCH ×3 (04:56→22:10)
[2020-01-17] MEDS: Albuterol 6.7 GM Inhaler INH SCH ×2 (08:35→21:51)
[2020-01-17] MEDS: Clopidogrel 75 MG Tab PO SCH (09:04)
[2020-01-17] MEDS: Famotidine 20 MG Tab PO SCH (09:04)
[2020-01-17] MEDS: Levothyroxine 112 MCG Tab PO SCH (09:04)
[2020-01-17] MEDS: Furosemide 40 MG Tab PO SCH (09:08)
[2020-01-17] MEDS: Dexamethasone 4 MG Tab PO SCH (09:09)
[2020-01-17] MEDS: Metoprolol Succinate 50 MG Tab.ER PO SCH (10:23)
--- NOTE | 2020-01-17 10:28 | PCM.SN.2 ---
- Free Text/Narrative Note: POD 4 s/p debridement of infected sacral decubitus ulcer S: no acute events O: AF, stable bradycardia with rate 50s bpm, normal BP, 95% SpO2 on 2 L NC< no tachypnea Wound vac with thin black fluid draining A: Extensive soft tissue defect after debridement of infected sacral decubitus ulcer. Clinically stable since debridement, on IV antibiotics including vancomycin, cefepime, flagyl. Wound cultures from ER growing Proteus, E coli, gram + anaerobes. No significant additional surgical debridement planned after d iscussion of goals of care with family. P: PICC line placed yesterday Wound vac changed yesterday, wound cleansed with iodine and hydrogen peroxide soaked gauze prior to wound vac replacement plan [facility] to [facility] once wound care resources and IV antibiotics are set up.
[2020-01-17] MEDS: Sodium Chloride 0.9% 1,000 ML IV SCH (18:45)
[2020-01-17] MEDS: Sertraline 25 MG Tab PO SCH (20:24)
[2020-01-17] MEDS: Simvastatin 10 MG Tab PO SCH (20:24)
[2020-01-17] MEDS: Cefepime 2 GM in Premix Bag 1 BAG IV SCH (20:26)
[2020-01-18] MEDS: Acetaminophen 325 MG Tab PO SCH ×3 (02:02→18:37)
[2020-01-18] MEDS: metroNIDAZOLE/Normal Saline 500 MG in Premix Bag 1 BAG IV SCH ×3 (05:09→22:28)
[2020-01-18] MEDS: Albuterol 6.7 GM Inhaler INH SCH (09:28)
--- NOTE | 2020-01-18 09:35 | PCM.SN.2 ---
- Free Text/Narrative Note: POD 5 s/p debridement of infected sacral decubitus ulcer S: no acute events O: AF, stable bradycardia with rate 50s bpm, normal BP, 95% SpO2 on 2 L NC< no tachypnea Wound vac with thin black fluid draining rectal tube, parks catheter in place vancomycin trough in therapeutic range A: Extensive soft tissue defect after debridement of infected sacral decubitus ulcer. Clinically stable since debridement, on IV antibiotics including vancomycin, cefepime, flagyl. Wound cultures from ER growing Proteus, E coli, gram + anaerobes. No significant additional surgical debridement planned after discussion of goals of care with family. P: PICC line placed Wound vac change planned for today plan for discharge back to long-term once wound care resources and IV antibiotics are set up.
[2020-01-18] MEDS: Levothyroxine 112 MCG Tab PO SCH (10:05)
[2020-01-18] MEDS: Dexamethasone 4 MG Tab PO SCH (10:05)
[2020-01-18] MEDS: Furosemide 40 MG Tab PO SCH (10:05)
[2020-01-18] MEDS: Famotidine 20 MG Tab PO SCH (10:05)
[2020-01-18] MEDS: Metoprolol Succinate 50 MG Tab.ER PO SCH (10:06)
[2020-01-18] MEDS: Clopidogrel 75 MG Tab PO SCH (10:08)
[2020-01-18] MEDS: Sodium Chloride 0.9% 1,000 ML IV SCH (12:14)
[2020-01-18] MEDS: Morphine 2 MG/ML SYRINGE IVPUSH PRN (12:36)
[2020-01-18] MEDS: Cefepime 2 GM in Premix Bag 1 BAG IV SCH (19:01)
[2020-01-18] MEDS: Sertraline 25 MG Tab PO SCH (22:06)
[2020-01-18] MEDS: Simvastatin 10 MG Tab PO SCH (22:06)
[2020-01-19] MEDS: Albuterol 6.7 GM Inhaler INH SCH ×3 (00:16→20:29)
[2020-01-19] MEDS: Acetaminophen 325 MG Tab PO SCH ×3 (02:10→17:02)
[2020-01-19] MEDS: metroNIDAZOLE/Normal Saline 500 MG in Premix Bag 1 BAG IV SCH ×3 (04:37→22:38)
[2020-01-19] MEDS: Famotidine 20 MG Tab PO SCH (08:02)
[2020-01-19] MEDS: Levothyroxine 112 MCG Tab PO SCH (08:02)
[2020-01-19] MEDS: Metoprolol Succinate 50 MG Tab.ER PO SCH (08:02)
[2020-01-19] MEDS: Clopidogrel 75 MG Tab PO SCH (08:02)
[2020-01-19] MEDS: Furosemide 40 MG Tab PO SCH (08:02)
[2020-01-19] MEDS: Dexamethasone 4 MG Tab PO SCH (08:03)
[2020-01-19] MEDS: Morphine 2 MG/ML SYRINGE IVPUSH PRN ×2 (09:18→17:03)
[2020-01-19] MEDS: Cefepime 2 GM in Premix Bag 1 BAG IV SCH (22:00)
[2020-01-19] MEDS: Sertraline 25 MG Tab PO SCH (22:39)
[2020-01-19] MEDS: Simvastatin 10 MG Tab PO SCH (22:39)
[2020-01-20] MEDS: Acetaminophen 325 MG Tab PO SCH ×3 (01:03→18:09)
[2020-01-20] MEDS: metroNIDAZOLE/Normal Saline 500 MG in Premix Bag 1 BAG IV SCH ×3 (04:47→21:02)
[2020-01-20] MEDS: Albuterol 6.7 GM Inhaler INH SCH ×2 (09:05→21:05)
[2020-01-20] MEDS: Levothyroxine 112 MCG Tab PO SCH (09:39)
[2020-01-20] MEDS: Dexamethasone 4 MG Tab PO SCH (09:39)
[2020-01-20] MEDS: Furosemide 40 MG Tab PO SCH (09:40)
[2020-01-20] MEDS: Clopidogrel 75 MG Tab PO SCH (09:41)
[2020-01-20] MEDS: Famotidine 20 MG Tab PO SCH (09:41)
[2020-01-20] MEDS: Sodium Chloride 0.9% 1,000 ML IV SCH (09:43)
[2020-01-20] MEDS: Metoprolol Succinate 50 MG Tab.ER PO SCH (09:44)
[2020-01-20] MEDS: Morphine 2 MG/ML SYRINGE IVPUSH PRN ×2 (11:29→15:37)
--- NOTE | 2020-01-20 15:57 | PCM.SN.2 ---
- Free Text/Narrative Note: POD 6 s/p debridement of infected sacral decubitus ulcer S: no acute events O: AF, stable bradycardia with rate 50s bpm, normal BP, 95% SpO2 on 2 L NC Wound vac with thin black fluid draining rectal tube, parks catheter in place A: Extensive soft tissue defect after debridement of infected sacral decubitus ulcer. Clinically stable since debridement, on IV antibiotics including vancomycin, cefepime, flagyl. Wound cultures from ER growing Proteus, E coli, gram + anaerobes. No significant additional surgical debridement planned after discussion of goals of care with family. P: PICC line in place Wound vac change tomorrow vs Tuesday pending discharge back to shelter once wound care resources and IV antib iotics are set up.
--- NOTE | 2020-01-20 16:01 | PCM.SN.2 ---
- Free Text/Narrative Note: POD 7 s/p debridement of infected sacral decubitus ulcer S: wound vac leak O: AF, stable bradycardia with rate 50s bpm, normal BP, 95% SpO2 on 2 L NC no distress, awake and alert tachypnea RR 30 Wound vac dressing redone due to leak- wound has foul-smelling necrotic debris mostly at the left lateral aspect. Some sharp debridement with scissors done at bedside, and additional 1 cm^3 of necrotic tissue. Some soft tissue gas and pus. The left skin edge appears dusky and is starting to break down. rectal tube, parks catheter in place A: Extensive soft tissue defect after debridement of infected sacral decubitus ulcer. Clinically stable since debridement, on IV antibiotics including vancomycin, cefepime, flagyl. Wound cultures from ER growing Proteus, E coli, gram + anaerobes. Wound was cleansed with hydrogen peroxide and iodine mix. Additional necrotic debris was removed sharply with scissors. P: PICC line in place Wound vac changed [facility] and IV antibiotics are set up.
[2020-01-20] MEDS: Simvastatin 10 MG Tab PO SCH (20:13)
[2020-01-20] MEDS: Sertraline 25 MG Tab PO SCH (20:14)
[2020-01-20] MEDS: Cefepime 2 GM in Premix Bag 1 BAG IV SCH (20:15)
[2020-01-21] MEDS: Morphine 2 MG/ML SYRINGE IVPUSH PRN (00:26)
[2020-01-21] MEDS: Acetaminophen 325 MG Tab PO SCH ×2 (02:09→09:21)
[2020-01-21] MEDS: Sodium Chloride 0.9% 1,000 ML IV SCH (05:57)
[2020-01-21] MEDS: metroNIDAZOLE/Normal Saline 500 MG in Premix Bag 1 BAG IV SCH (06:01)
[2020-01-21] MEDS: Albuterol 6.7 GM Inhaler INH SCH (08:13)
[2020-01-21] MEDS: Metoprolol Succinate 50 MG Tab.ER PO SCH (09:21)
[2020-01-21] MEDS: Famotidine 20 MG Tab PO SCH (09:21)
[2020-01-21] MEDS: Furosemide 40 MG Tab PO SCH (09:21)
[2020-01-21] MEDS: Clopidogrel 75 MG Tab PO SCH (09:21)
[2020-01-21] MEDS: Levothyroxine 112 MCG Tab PO SCH (09:21)
--- NOTE | 2020-01-21 09:23 | PCM.DCSUM1 ---
Discharge Summary - Hospital Course Free Text/Narrative:: Mrs. Hsieh is an unfortunate 89 yo woman living in a care home who was found to have an advanced infected sacral decubitus ulcer and brought to the emergency room on 01/11/2020. Given her comorbidities including COPD, CHF, obesity and dementia and DNR status, a lengthy discussion about prognosis was held with the patient's children. She was taken to the OR for operative debridement of necrotic and infected tissue and a wound vac was placed. She was started on broad spectrum IV antibiotics including vancomycin, cefepime and flagyl. Wound cultures grew out polymicrobial najma. She was taken back to the OR on 01/12 for initial dressing change and additional debridement. After discussion with family, additional debridement was limited as the patient was already dealing with a substantial wound that would be a significant challenge to try to heal. W ound vac changes were then performed about every 2-3 days. There was a challenge with soilage of the wound, and a parks catheter and rectal tube were placed to try and help keep the wound clean. With each dressing change, Necrotic debris was removed at bedside with scissors, and the wound was irrigated and scrubbed with dilute iodine/hydrogen peroxide solution. A PICC line was placed to continue a 6 week course of antibiotics as the infection appeared to involve the periosteum of the sacrum. She was set up for discharge back to the [facility] facility on 01/21/2020. Diagnosis: Stroke: No - Discharge Data Discharge Date: 01/21/20 Discharge Disposition: Home, Self-Care 01 Condition: Good - Referral to Home Health Primary Care Physician: Santana Marti MD - Patient Summary/Data Operative Procedure(s) Performed: wound debridement - Patient Instructions Diet: Mechanical Soft Notify Provider of: Fever, Increased Pain, Swelling and Redness, Drainage - Discharge Plan *PRESCRIPTION DRUG MONITORING PROGRAM REVIEWED*: Not Applicable *COPY OF PRESCRIPTION DRUG MONITORING REPORT IN PATIENT KAYLEE: Not Applicable Prescriptions/Med Rec: metroNIDAZOLE/Normal Saline [metroNIDAZOLE in NS Premix] 500 mg IV Q8H #105 bag Cefepime [Maxipime in D5W 2 GM/50 ML] 2 gm IV DAILY #35 ml Vancomycin 1 gm IV Q24H #35 sdv Home Medications: Home Meds Albuterol Sulfate [Proair Respiclick] 1 puff IH Q4H PRN 02/23/17 [History] Furosemide [Lasix] 40 mg PO DAILY 02/23/17 [History] Levothyroxine [Synthroid] 112 mcg PO DAILY 02/23/17 [History] Sertraline [Zoloft] 25 mg PO BEDTIME 02/23/17 [History] Simvastatin [Zocor] 5 mg PO BEDTIME 02/23/17 [History] Clopidogrel [Plavix] 75 mg PO DAILY #30 tablet 02/28/17 [Rx] Famotidine [Pepcid] 20 mg PO DAILY #30 tablet 02/28/17 [Rx] Nitroglycerin [IJP: Nitroglycerin] 0.4 mg SL Q5M PRN #30 tablet, sublingual 02/28/17 [Rx] Albuterol Sulfate [Proair Respiclick] 1 puff INH BID 12/24/19 [History] Bacitracin [Bacitracin Oint] 1 applic TOP DAILY 12/24/19 [History] Docusate Sodium/Sennosides [Senna Plus] 1 tab PO BID PRN 12/24/19 [History] Furosemide [Lasix] 60 mg PO DAILY 12/24/19 [History] Metoprolol Succinate [Toprol XL 50mg] 50 mg PO DAILY 12/24/19 [History] dexAMETHasone [Dexamethasone] 3 mg PO BID #20 tablet 12/24/19 [Rx] Cefepime [Maxipime in D5W 2 GM/50 ML] 2 gm IV DAILY #35 ml 01/21/20 [Rx] Vancomycin 1 gm IV Q24H #35 sdv 01/21/20 [Rx] metroNIDAZOLE/Normal Saline [metroNIDAZOLE in NS Premix] 500 mg IV Q8H #105 bag 01/21/20 [Rx] Oxygen Therapy Mode: Nasal Cannula Patient Handouts: Chronic Obstructive Pulmonary Disease, Heart Failure Action Plan, Sepsis, Diagnosis, Adult Referrals: Santana Marti MD [Primary Care Provider] - - Discharge Summary/Plan Comment DC Time >30 min.: No - Patient Data Vitals - Most Recent: Last Vital Signs Temp 36.6 C 01/21/20 00:13 Pulse 57 L 01/21/20 00:29 Resp 20 01/21/20 00:13 BP 130/60 01/21/20 00:29 Pulse Ox 96 01/21/20 08:13 Weight - Most Recent: 110.132 kg I&O - Last 24 hours: Intake & Output 01/20/20 01/21/20 01/21/20 22:59 06:59 14:59 Intake Total 1582 1270 Output Total 2075 2300 Balance -493 -1030 Med Orders - Current: Current Medications Acetaminophen (Tylenol) 975 mg PO Q8H [facility] Last Admin: 01/21/20 02:09 Dose: 975 mg Documented by: Albuterol (Proventil Hfa) 0 gm INH Q4H PRN PRN Reason: short of breath Albuterol (Proventil Hfa) 0 gm INH BID [facility] Last Admin: 01/21/20 08:13 Dose: 1 puff Documented by: Clopidogrel Bisulfate (Plavix) 75 mg PO DAILY [facility] Last Admin: 01/20/20 09:41 Dose: 75 mg Documented by: Dexamethasone (Dexamethasone) 6 mg PO DAILY [facility] Last Admin: 01/20/20 09:39 Dose: 6 mg Documented by: Famotidine (Pepcid) 20 mg PO DAILY [facility] Last Admin: 01/20/20 09:41 Dose: 20 mg Documented by: Furosemide (Lasix) 40 mg PO DAILY [facility] Last Admin: 01/20/20 09:40 Dose: 40 mg Documented by: Sodium Chloride (Normal Saline) 1,000 mls @ 50 mls/hr IV ASDIRECTED [facility] Last Admin: 01/21/20 05:57 Dose: 50 mls/hr Documented by: Vancomycin HCl 1 gm/ Sodium (Chloride) 250 mls @ 250 mls/hr IV Q24H [facility] Last Admin: 01/20/20 20:27 Dose: 250 mls/hr Documented by: Cefepime HCl 2 gm/ Premix 50 mls @ 100 mls/hr IV Q24H [facility] Last Admin: 01/20/20 20:15 Dose: 100 mls/hr Documented by: Metronidazole 500 mg/ Premix 100 mls @ 100 mls/hr IV Q8H [facility] Last Admin: 01/21/20 06:01 Dose: 100 mls/hr Documented by: Levothyroxine Sodium (Levothyroxine) 112 mcg PO DAILY [facility] Last Admin: 01/20/20 09:39 Dose: 112 mcg Documented by: Metoprolol Succinate (Toprol Xl) 50 mg PO DAILY [facility] Last Admin: 01/20/20 09:44 Dose: 50 mg Documented by: Morphine Sulfate (Morphine) 0.5 mg IVPUSH Q4H PRN PRN Reason: Pain (severe 7-10) Last Admin: 01/21/20 00:26 Dose: 0.5 mg Documented by: Nitroglycerin (Nitrostat) 0.4 mg SL Q5M PRN PRN Reason: Chest Pain Senna/Docusate Sodium (Senna Plus) 1 tab PO BID PRN PRN Reason: Constipation Sertraline HCl (Zoloft) 25 mg PO BEDTIME [facility] Last Admin: 01/20/20 20:14 Dose: 25 mg Documented by: Simvastatin (Zocor) 5 mg PO BEDTIME [facility] Last Admin: 01/20/20 20:13 Dose: 5 mg Documented by: Vancomycin HCl (Pharmacy To Dose - Vancomycin) 1 dose .XX DAILY PRN PRN Reason: RX TO DOSE VANCOMYCIN Discontinued Medications Acetaminophen (Tylenol) 975 mg PO Q8H [facility] Last Admin: 01/14/20 13:10 Dose: Not Given Documented by: Bupivacaine HCl/Epinephrine Bitart (Marcaine 0.5%/Epinephrine 1:200,000) Confirm Administered Dose 50 ml .ROUTE .STK-MED ONE Stop: 01/11/20 18:20 Bupivacaine HCl/Epinephrine Bitart (Marcaine 0.5%/Epinephrine 1:200,000) Confirm Administered Dose 50 ml .ROUTE .STK-MED ONE Stop: 01/13/20 07:47 Dexamethasone (Dexamethasone Intensol) 3 mg PO BID [facility] Last Admin: 01/12/20 08:15 Dose: Not Given Documented by: Ephedrine Sulfate (Ephedrine Sulfate) Confirm Administered Dose 50 mg .ROUTE .STK-MED ONE Stop: 01/11/20 19:28 Fentanyl (Sublimaze) Confirm Administered Dose 100 mcg .ROUTE .STK-MED ONE Stop: 01/11/20 18:05 Fentanyl (Sublimaze) 50 mcg IVPUSH Q5M PRN PRN Reason: Pain Fentanyl (Sublimaze) Confirm Administered Dose 100 mcg .ROUTE .STK-MED ONE Stop: 01/13/20 07:53 Ceftriaxone Sodium 2 gm/ (Sodium Chloride) 100 mls @ 200 mls/hr IV Q24H [facility] Last Admin: 01/11/20 17:03 Dose: 200 mls/hr Documented by: Lidocaine HCl (Xylocaine-Mpf 1%) Confirm Administered Dose 4 mls @ as directed .ROUTE .STK-MED ONE Stop: 01/11/20 18:04 Cefepime HCl 1 gm/ Premix 50 mls @ 100 mls/hr IV Q24H [facility] Last Admin: 01/11/20 20:59 Dose: 100 mls/hr Documented by: Metronidazole 500 mg/ Premix 100 mls @ 100 mls/hr IV Q8H [facility] Last Admin: 01/16/20 13:13 Dose: 100 mls/hr Documented by: Lidocaine HCl (Xylocaine-Mpf 1%) Confirm Administered Dose 2 mls @ as directed .ROUTE .STK-MED ONE Stop: 01/13/20 07:53 Influenza Virus Vaccine (Pharmacy To Dose - Influenza Vaccine) 1 each IM DAILY [facility] Last Admin: 01/13/20 08:00 Dose: Not Given Documented by: Influenza Virus Vaccine (Fluzone High-Dose Quad ) 240 mcg IM .ONCE ONE Stop: 01/14/20 10:01 Morphine Sulfate (Morphine) 0.5 mg IVPUSH ONETIME ONE Stop: 01/14/20 15:11 Last Admin: 01/14/20 15:18 Dose: 0.5 mg Documented by: Propofol (Diprivan 20 Ml) Confirm Administered Dose 200 mg .ROUTE .STK-MED ONE Stop: 01/11/20 18:04 Propofol (Diprivan 20 Ml) Confirm Administered Dose 200 mg .ROUTE .STK-MED ONE Stop: 01/11/20 19:20 Propofol (Diprivan 20 Ml) Confirm Administered Dose 200 mg .ROUTE .STK-MED ONE Stop: 01/13/20 07:53 Vancomycin HCl (Pharmacy To Dose - Vancomycin) 1 dose .XX Q24H PRN PRN Reason: Other
[2020-01-21] MEDS: Dexamethasone 4 MG Tab PO SCH (09:24)
[2020-01-21 11:34] VITALS: BP 162/101; PULSE 55
== END 2020-01-21 12:35 | DRG 570 ==
LOC: JD.ED 13:11 → JD.SDS 18:36 → JD.ICU 20:25 → INTOOBSV 20:25 → OBSVTOIN 01-12 10:36 → JD.MS 01-14 08:22
PROVIDERS: ADMIT Surgery; ATTEND Surgery
PROC: 0JB70ZZ Excision of Back Subcutaneous Tissue and Fascia, Open Approach (ICD-10-PCS; principal; 2020-01-12)
PROC: 0JB70ZZ Excision of Back Subcutaneous Tissue and Fascia, Open Approach (ICD-10-PCS; 2020-01-13)
PROC: 2W15X6Z Compression of Back using Pressure Dressing (ICD-10-PCS; 2020-01-13)
PROC: 02HV33Z Insertion of Infusion Device into Superior Vena Cava, Percutaneous Approach (ICD-10-PCS; 2020-01-21)
DX: L89.154 Pressure ulcer of sacral region, stage 4 (principal); U07.1 COVID-19; I96 Gangrene, not elsewhere classified; I10 Essential (primary) hypertension; E78.00 Pure hypercholesterolemia, unspecified; Z68.41 Body mass index [BMI] 40.0-44.9, adult; K59.09 Other constipation; E03.9 Hypothyroidism, unspecified; Z85.528 Personal history of other malignant neoplasm of kidney; Z90.5 Acquired absence of kidney; Z79.02 Long term (current) use of antithrombotics/antiplatelets; Z79.890 Hormone replacement therapy; Z79.899 Other long term (current) drug therapy; Z66 Do not resuscitate; J44.9 Chronic obstructive pulmonary disease, unspecified; I50.9 Heart failure, unspecified; E66.9 Obesity, unspecified; F03.90 Unspecified dementia, unspecified severity, without behavioral disturbance, psychotic disturbance, mood disturbance, and anxiety; I48.91 Unspecified atrial fibrillation
CPT/HCPCS: 11043; 11044; 36415 ×2; 51702; 71045; 80048; 80053; 83605; 85025 ×2; 86140; 87040 ×2; 87075; 87077 ×2; 87181; 87186 ×2; 87205; 93005; 94640 ×2; 96365; 99285; A9270 ×11; J0692; J0696; J2001; J2704 ×2; J3010; J3370; J3490 ×3; J7030; J7050 ×2; J8540; U0002; 00400; 36569; 80202; 87641; 94760; 94761; C1751; J2270